=== PATIENT | female | born 1985 | race Caucasian/White ===

== ENCOUNTER 2016-10-28 13:20 | Emergency (ER) | payer MEDICAID, OTHER ==
[~2016-10-28] VITALS: Ht 170.2 cm; Wt 102.5 kg
[~2016-10-28 13:20] MED LIST: ALBU6.7H INH; ALLE10TA PO; FLUO40CA PO; NEBUMIS9; SPIRCAP INH; VALA1TAB PO
[2016-10-28 13:44] VITALS: BP 133/77; PULSE 74; RESP 20; TEMP 98.4
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
--- NOTE | 2016-10-28 15:17 | PD ---
HPI Chief Complaint: Injury Time Seen by Provider: 15:12 Travel History International Travel<30 days: No Contact w/Intl Traveler<30days: No Traveled to known affect area: No History of Present Illness HPI 30-year-old female presents the emergency department with injury to the right hand. Patient hit a wall and now has pain and swelling over the third MIP joint. Patient has decreased range of motion and pain into the hand and wrist. Pain is 7 out of 10. She denies numbness or tingling. She has no open wounds. She has no other injury. She is allergic to codeine. PFSH Past Medical History Asthma: Yes Autoimmune Disease: No Blood Disorders: No Cancer: No COPD: Yes Cerebrovascular Accident: No Diabetes: Yes (BORDERLINE HYPOGLYCEMIC) Patient Takes Glucophage: No Diminished Hearing: No Genitourinary: Yes (UTI) Musculoskeletal: Yes (RECENT FX 5HT METACARPAL) Psychiatric: No Respiratory: No Immunizations Current: No Sleep Apnea: No Tetanus Vaccination: < 5 Years Influenza Vaccination: Yes PNEUMOCCOCAL Vaccine (Year): 2 ?: Not LMP: LAST DAY : 4 Para: 2 Miscarriage: 1 : 0 Ovarian Cysts: Yes Tubal Ligation: Yes Past Surgical History AICD: No Section: Yes Genitourinary Surgery: No Oral Surgery: Yes Pacemaker: No Other Surgery: No Social History Alcohol Use: Yes (2 DRINKS TWICE A WEEK) Tobacco Use: Yes (smokes 4-5 cigarretes per day) Substance Use: No Allergies-Medications (Allergen,Severity, Reaction): Coded Allergies: codeine (Unverified Allergy, Intermediate, RASH, HIVES, NAUSEA, 10/28/16) Reported Meds & Prescriptions Reported Meds & Active Scripts Active Fluoxetine (Fluoxetine HCl) 40 Mg Cap 40 Cap PO DAILY Valacyclovir (Valacyclovir HCl) 1 Gm Tab 2,000 Mg PO BID Nebulizer Air Tube/Plugs (Respiratory Therapy Supplies) 1 Mis Mis Units .XX Proventil Hfa 6.7 GM Inh (Albuterol Sulfate) 90 Mcg/Act Aer 2 Puff INH Q6H PRN Reported Allergy Relief (Loratadine) 10 Mg Tab 10 Mg PO BID Spiriva Handihaler (Tiotropium Inh) 18 Mcg Cap 18 Mcg INH DAILY 1 capsule = 18 mcg Review of Systems Except as stated in HPI: all other systems reviewed are Neg General / Constitutional: No: Fever Eyes: No: Visual changes HENT: No: Headaches Cardiovascular: No: Chest Pain or Discomfort Respiratory: No: Shortness of Breath Gastrointestinal: No: Abdominal Pain Genitourinary: No: Dysuria Musculoskeletal: Positive: Myalgias, Arthralgias, Limited ROM, Pain (see history of present illness) Skin: No Rash Neurologic: No: Weakness Psychiatric: No: Depression Endocrine: No: Polydipsia Hematologic/Lymphatic: No: Easy Bruising Physical Exam Narrative GENERAL: Patient appears in mild distress. SKIN: Warm and dry. Normal color. Normal turgor. Patient has bruising and swelling over the right third MIP joint. HEAD: Atraumatic. Normocephalic. EYES: Pupils equal and round. No scleral icterus. No injection or drainage. ENT: No nasal bleeding or discharge. Mucous membranes pink and moist. Pharynx is clear. Airway is patent NECK: Trachea midline. No JVD. CARDIOVASCULAR: Regular rate and rhythm. RESPIRATORY: No accessory muscle use. Clear to auscultation. Breath sounds equal bilaterally. MUSCULOSKELETAL: Extremities without clubbing, cyanosis, or edema. No obvious deformities. Patient is tenderness over the dorsal distal right hand centered over the third MIP joint. Range of motion is limited secondary to discomfort. There is no obvious crepitus. Neurovascular exam is intact distally. Capillary refill is brisk. No other significant findings are noted. NEUROLOGICAL: Awake and alert. No obvious cranial nerve deficits. Motor grossly within normal limits. Five out of 5 muscle strength in the arms and legs. Normal speech. PSYCHIATRIC: Appropriate mood and affect; insight and judgment normal. Data Data Last Documented VS Vital Signs Date Time Temp Pulse Resp B/P (MAP) Pulse Ox O2 Delivery O2 Flow Rate FiO2 10/28/16 13:44 98.4 74 20 133/77 (95) Orders Orders Hand, Complete (Pdo2hjp) (10/28/16 ) Wrist, Complete (Nci1kgh) (10/28/16 ) [facility] Medical Decision Making Medical Screen Exam Complete: Yes Emergency Medical Condition: Yes Differential Diagnosis Right hand contusion. Right hand sprain. Right hand fracture. Narrative Course X-ray of the right hand is ordered in triage and shows no acute fracture, only soft tissue swelling. Patient is placed in a Chacho bandage for comfort and is to use ice frequently. Patient is given ibuprofen 600 mg 4 times a day #40 Patient to follow up with primary care physician as needed. Diagnosis Primary Impression: Contusion of right hand, initial encounter Referrals: [facility] Primary Care Physician Patient Instructions: Contusion in Adults (ED), General Instructions Additional Instructions: X-ray of the right hand is ordered in triage and shows no acute fracture, only soft tissue swelling. Patient is placed in a Chacho bandage for comfort and is to use ice frequently. Patient is given ibuprofen 600 mg 4 times a day #40 Patient to follow up with primary care physician as needed. Med/Other Pt SpecificInfo: Prescription(s) given Disposition: 01 DISCHARGE HOME Condition: Stable Eliel Bender Oct 28, 2016 15:16
[2016-10-28] MEDS ORDERED: IBUP-232 PO (15:18)
[2016-11-03] MEDS ORDERED: FLUO40CA PO (11:51)
[2016-12-02] MEDS ORDERED: VALA1TAB PO (06:59)
== END 2016-10-28 15:53 | disposition home or self-care (01) ==
LOC: PHED 13:20
DX: S60.221A Contusion of right hand, initial encounter (principal); W22.01XA Walked into wall, initial encounter; E11.9 Type 2 diabetes mellitus without complications; J44.9 Chronic obstructive pulmonary disease, unspecified
CPT/HCPCS: 73110; 73130; 99283

== ENCOUNTER → 2017-01-01 | Outpatient (CLI) | payer MEDICAID ==
[~2017-01-01] MED LIST changes: -ALLE10TA PO; +IBUP-232 PO; +LORA-650 PO
[2017-01-01 11:08] LABS: BLOOD GAS BASE EXCESS -0.5 mmol/L (-2-2); BLOOD GAS CARBOXYHEMOGLOBIN 1.3 % (0-4); BLOOD GAS HCO3 23 mmol/L (22-26); BLOOD GAS METHEMOGLOBIN 1.2 % (0-2); BLOOD GAS O2 HGB SATURATION 95 % (90-100); BLOOD GAS OXYGEN CONTENT 16.9 Vol % (12.0-20.0); BLOOD GAS PCO2 36 mmHg (38-42); BLOOD GAS PO2 101 mmHg (61-120); BLOOD GAS TOTAL HGB 12.6 G/DL (12.0-16.0); CRITICAL VALUE NO; DRAW SITE RT RADIAL; FIO2 21 %; NUMBER OF ARTERIAL PUNCTURES 1; STAT NO; TEMP CORR TO 98.6; ULNAR PULSE PRESENT
--- NOTE | 2017-01-01 12:08 | RADRPT ---
EXAM DATE/TIME: 01/01/2017 11:17 [facility] COMPARISON: No previous studies available for comparison. INDICATIONS : Short of breath MEDICAL HISTORY : None. SURGICAL HISTORY : None. ENCOUNTER: Initial ACUITY: 1 day PAIN SCORE: 0/10 LOCATION: chest FINDINGS: PA and lateral views of the chest demonstrate the lungs to be symmetrically aerated without evidence of mass, infiltrate or effusion. The cardiomediastinal contours are unremarkable. Osseous structure s are intact. CONCLUSION: Normal examination. Jerson Lambert Jr., MD on January 01, 2017 at 12:07 Board Certified Radiologist. This report was verified electronically.
--- NOTE | 2017-01-06 12:12 | RSPPFT ---
DATE OF PROCEDURE: 01/01/17 COMMENTS: Spirometry with FVC of 3.4, FEV1 of 2.1, FEV1/FVC ratio at 65%. A non-significant response to acutely inhaled bronchodilator noted. Room air arterial blood gases show pH of 7.43, PCO2 36, PO2 of 101. Slow vital capacity is 86% of predicted. TLC is 80%. Diffusion capacity is normal. IMPRESSION: 1. Moderate airways obstruction. 2. Non-significant response to acutely inhaled bronchodilator. 3. No evidence of airways restriction. 4. Adequate oxygenation and alveolar ventilation.
== END ==
LOC: HRSP 10:05
PROVIDERS: ATTEND Internal Medicine Sleep Medicine
DX: R06.89 Other abnormalities of breathing (principal)
CPT/HCPCS: 36600; 71020; 82805; 94060; 94726; 94729

== ENCOUNTER 2017-03-01 17:34 | Observation (INO) | payer MEDICAID ==
[~2017-03-01] VITALS: Ht 170.2 cm; Wt 104.0 kg
[2017-03-01 17:37] VITALS: BP 133/91; PULSE 71; RESP 18; TEMP 98.7; O2SAT 100
[2017-03-01 18:33] LABS: BICARBONATE 25.8 MEQ/L (21.0-32.0); BLOOD UREA NITROGEN 7 MG/DL (7-18); CALCIUM 8.9 MG/DL (8.5-10.1); CHLORIDE 106 MEQ/L (98-107); GLOMERULAR FILTRATION RATE 72 ML/MIN (>89); GLUCOSE,RANDOM 98 MG/DL (74-106); SODIUM (NA) 138 MEQ/L (136-145)
[2017-03-01 18:37] LABS: TROPONIN I LESS THAN 0.02 NG/ML (0.02-0.05)
--- NOTE | 2017-03-01 19:23 | RADRPT ---
EXAM DATE/TIME: 03/01/2017 19:09 [facility] COMPARISON: CHEST PA & LAT, January 01, 2017, 11:17. INDICATIONS : Shortness of breath and chest pain radiating down left shoulder and arm for two days. MEDICAL HISTORY : Chronic obstructive pulmonary disease. Former smoker. SURGICAL HISTORY : None. ENCOUNTER: Initial ACUITY: 2 days PAIN SCORE: 8/10 LOCATION: Left chest FINDINGS: PA and lateral views of the chest demonstrate the lungs to be symmetrically aerated without evidence of mass, infiltrate or effusion. The cardiomediastinal contours are unremarkable. Osseous structure s are intact. CONCLUSION: Normal radiographic appearance of the chest. Frederic Lynne MD on March 01, 2017 at 19:20 Board Certified Radiologist. This report was verified electronically.
--- NOTE | 2017-03-01 19:43 | PD ---
HPI Chief Complaint: Respiratory Symptoms Time Seen by Provider: 19:24 Travel History International Travel<30 days: No Contact w/Intl Traveler<30days: No Traveled to known affect area: No History of Present Illness HPI TREATED FOR PNA AT BEGINING OF YEAR TREATED AND COMPLETED [facility]....HOWEVER, PATIENT HAS CONTINUED TO HAVE DRY COUGH, AND SOB, AND STARTED HAVING CHEST PRESSURE AND RADIATING TO LEFT UE, 6/10, INTERMITTENT, PMHX: ASTHMA, PCOS SMOKER, ABOUT 1/3PPD, QUIT 4 DAYS AGO B/C OF WORSENING SOB PSHX DENIES PFSH Past Medical History Asthma: Yes Autoimmune Disease: No Blood Disorders: No Cancer: No COPD: Yes Cerebrovascular Accident: No Diabetes: Yes (BORDERLINE HYPOGLYCEMIC) Diminished Hearing: No Genitourinary: Yes (UTI) Musculoskeletal: Yes (RECENT FX 5HT METACARPAL) Psychiatric: No Respiratory: Yes Immunizations Current: No Sleep Apnea: No PNEUMOCCOCAL Vaccine (Year): 2 ?: Not LMP: 02/22/17 : 4 Para: 2 Miscarriage: 1 : 0 Ovarian Cysts: Yes Tubal Ligation: Yes Past Surgical History AICD: No Section: Yes Genitourinary Surgery: No Oral Surgery: Yes Pacemaker: No Other Surgery: No Social History Alcohol Use: Yes (2 DRINKS TWICE A WEEK) Tobacco Use: Yes (smokes 4-5 cigarretes per day) Substance Use: No Allergies-Medications (Allergen,Severity, Reaction): Coded Allergies: codeine (Unverified Allergy, Intermediate, RASH, HIVES, NAUSEA, 10/28/16) Reported Meds & Prescriptions Reported Meds & Active Scripts Active Valacyclovir (Valacyclovir HCl) 1 Gm Tab 2,000 Mg PO BID Fluoxetine (Fluoxetine HCl) 40 Mg Cap 40 Cap PO DAILY Ibuprofen 600 Mg Tab 600 Mg PO Q6H PRN Nebulizer Air Tube/Plugs (Respiratory Therapy Supplies) 1 Mis Mis Units .XX Proventil Hfa 6.7 GM Inh (Albuterol Sulfate) 90 Mcg/Act Aer 2 Puff INH Q6H PRN Reported Allergy Relief (Loratadine) 10 Mg Tab 10 Mg PO BID Spiriva Handihaler (Tiotropium Inh) 18 Mcg Cap 18 Mcg INH DAILY 1 capsule = 18 mcg Review of Systems Except as stated in HPI: all other systems reviewed are Neg Cardiovascular: Positive: Chest Pain or Discomfort Respiratory: Positive: Shortness of Breath Physical Exam Narrative GENERAL: SKIN: Warm and dry. HEAD: Atraumatic. Normocephalic. EYES: Pupils equal and round. No scleral icterus. No injection or drainage. ENT: No nasal bleeding or discharge. Mucous membranes pink and moist. NECK: Trachea midline. No JVD. CARDIOVASCULAR: Regular rate and rhythm. RESPIRATORY: No accessory muscle use. MINIMAL SCATTERED WHEEZING, GOOD TV GASTROINTESTINAL: Abdomen soft, non-tender, nondistended. MUSCULOSKELETAL: Extremities without clubbing, cyanosis, or edema. No obvious deformities. NEUROLOGICAL: Awake and alert. No obvious cranial nerve deficits. Motor grossly within normal limits. Five out of 5 muscle strength in the arms and legs. Normal speech. PSYCHIATRIC: Appropriate mood and affect; insight and judgment normal. Data Data Last Documented VS Vital Signs Date Time Temp Pulse Resp B/P (MAP) Pulse Ox O2 Delivery O2 Flow Rate FiO2 03/01/17 17:37 98.7 71 18 133/91 (105) 100 Room Air Orders Orders Electrocardiogram (03/01/17 18:00) Complete Blood Count With Diff (03/01/17 18:00) Basic Metabolic Panel (Bmp) (03/01/17 18:00) Ckmb (Isoenzyme) Profile (03/01/17 18:00) Troponin I (03/01/17 18:00) Chest, Pa & Lat (03/01/17 18:00) Labs Laboratory Tests Test 03/01/17 17:57 Blood Urea Nitrogen 7 MG/DL Creatinine 0.90 MG/DL Random Glucose 98 MG/DL Calcium Level 8.9 MG/DL Sodium Level 138 MEQ/L Potassium Level 3.8 MEQ/L Chloride Level 106 MEQ/L Carbon Dioxide Level 25.8 MEQ/L Anion Gap 6 MEQ/L Estimat Glomerular Filtration Rate 72 ML/MIN Total Creatine Kinase 49 U/L Troponin I LESS THAN 0.02 NG/ML MDM Medical Decision Making Medical Screen Exam Complete: Yes Emergency Medical Condition: Yes Medical Record Reviewed: Yes Differential Diagnosis COPD EXAC V PNA V FL V NONSTEMI Diagnosis Primary Impression: MILD COPD EXACERBATION Additional Impression: CP R/O FL Admitting Information Admitting Physician Requests: Observation Efe Kerr MD Mar 01, 2017 19:43
[2017-03-01 20:20] LABS: AUTOMATED NEUTROPHIL # 5.9 TH/MM3 (1.8-7.7); BASOPHIL % 0.5 % (0.0-2.0); EOSINOPHIL % 0.6 % (0.0-4.0); HEMATOCRIT 39.1 % (35.0-46.0); HEMOGLOBIN 13.6 GM/DL (11.6-15.3); LYMPH % 16.8 % (9.0-44.0); LYMPHOCYTE # 1.3 TH/MM3 (1.0-4.8); MEAN CELL VOLUME 88.9 FL (80.0-100.0); MEAN CORPUSCULAR HEMOGLOBIN 30.8 PG (27.0-34.0); MEAN CORPUSCULAR HGB CONC 34.7 % (32.0-36.0); MEAN PLATELET VOLUME 10.3 FL (7.0-11.0); MONO % 2.5 % (0.0-8.0); MONOCYTE # 0.2 TH/MM3 (0-0.9); NEUT % 79.6 % (16.0-70.0); PLATELET COUNT 181 TH/MM3 (150-450); RED BLOOD COUNT 4.39 MIL/MM3 (4.00-5.30); RED CELL DISTRIBUTION WIDTH 13.5 % (11.6-17.2); WHITE BLOOD COUNT 7.5 TH/MM3 (4.0-11.0)
[2017-03-01] MEDS: SODIUM CHLORIDE 0.9% FLUSH 10 ML FLUSH IV FLUSH SCH (20:52)
[2017-03-01] MEDS ORDERED: PRED20 PO (22:06)
[2017-03-01 22:46] LABS: TROPONIN I LESS THAN 0.02 NG/ML (0.02-0.05)
[2017-03-01 23:30] VITALS: BP 133/80; PULSE 62; RESP 18; TEMP 98.3; O2SAT 97
[2017-03-02 00:22] LABS: TROPONIN I LESS THAN 0.02 NG/ML (0.02-0.05)
[2017-03-02 03:24] VITALS: BP 123/72; PULSE 58; RESP 18; TEMP 98.3; O2SAT 98
[2017-03-02 04:18] VITALS: PULSE 66
--- NOTE | 2017-03-02 07:38 | HHI.HP ---
HPI Primary Care Physician Mirna Smith MD Chief Complaint Chest pain History of Present Illness 31 year old female with history of asthma and current smoker presents to emergency room for further evaluation of chest pain. Endorses 1 month of respiratory illness completing 3 rounds of antibiotics and steroids. Recently completed Levaquin for reported pneumonia. Continues to have dry cough. Onset of chest pain yesterday. Characterized as pressure. Location substernal. Severity moderate. Radiation to left arm.. Duration intermittent generally lasting minutes. No associated symptoms of nausea, vomiting, dyspnea, or diaphoresis. Precipitating factors coughing makes discomfort worse. Relieving factors laying still and relaxing. Denies similar pain in the past. Review of Systems General: No fatigue,weakness. Recent URI infection, treated with 3 rounds of antibiotics and multiple steroids within last month. Completed Levaquin last week. Continues to have nonproductive cough with fever. HEENT: No [place], no vision changes, no nasal congestion or drainage, no dysphasia CV: No CP, pressure, palpitations, intermittent leg pain, dizziness RESP: As stated above. Nonproductive cough, no dyspnea, history of asthma. Recently treated for pneumonia, completing Levaquin last week. GI: Nausea and vomiting resolved. No bowel changes, diarrhea, constipation, pain , distention, melena, blood in the stool. : No dysuria, urgency, frequency, hematuria, or history of kidney stones EXT: No lower leg edema, no parathesias MS: No discomfort or change in ROM NEURO: No change in memory, dizziness, difficulty with balance, LOC, motor/ sensory deficits PSYCH: No anxiety, depression, suicidal ideation SKIN: No rashes, no concerning lesions Past Family Social History Allergies: Coded Allergies: codeine (Unverified Allergy, Intermediate, RASH, HIVES, NAUSEA, 10/28/16) Past Medical History Asthma Past Surgical History None Reported Medications Reported Meds & Active Scripts Active Fluoxetine (Fluoxetine HCl) 40 Mg Cap 40 Cap PO DAILY Nebulizer Air Tube/Plugs (Respiratory Therapy Supplies) 1 Mis Mis Units .XX Proventil Hfa 6.7 GM Inh (Albuterol Sulfate) 90 Mcg/Act Aer 2 Puff INH Q6H PRN Prednisone 20 Mg Tab 20 Mg PO DIRECTED 40 MG twice a day x 3 days, then 20 MG daily x 3 days, then 10 MG daily x 3 days Allergy Relief (Loratadine) 10 Mg Tab 10 Mg PO BID Spiriva Handihaler (Tiotropium Inh) 18 Mcg Cap 18 Mcg INH DAILY 1 capsule = 18 mcg Active Ordered Medications Current Medications Medications (Trade) Dose Ordered Sig/Nory Route Start Time Stop Time Status Last Admin (NS Flush) 2 ml BID IV FLUSH 03/01/17 21:00 03/01/17 20:52 (Aspirin) 325 mg DAILY PO 03/02/17 09:00 (NS Flush) 2 ml BID IV FLUSH 03/02/17 09:00 (Tylenol) 500 mg Q4H PRN PO 03/02/17 08:00 (Zofran Inj) 4 mg Q6H PRN IV PUSH 03/02/17 08:00 (Nitrostat Sl) 0.4 mg Q5M PRN SL 03/02/17 08:00 Family History Noncontributory for early onset cardiovascular disease. Social History No known hypertension, diabetes, or hyperlipidemia. Current smoker, quit 4 days. Smoke 1pack/every 3 days. Past cardiac testing None Physical Exam Vital Signs Vital Signs Date Time Temp Pulse Resp B/P (MAP) Pulse Ox O2 Delivery O2 Flow Rate FiO2 03/02/17 04:18 66 03/02/17 03:24 98.3 58 18 123/72 (89) 98 03/01/17 23:30 98.3 62 18 133/80 (97) 97 03/01/17 22:05 03/01/17 17:37 98.7 71 18 133/91 (105) 100 Room Air Physical Exam GENERAL: Alert WN, WD, NAD, pleasant, moderately obese, female HEAD: NC, AT CV: RRR, without murmur, rub, gallop, no JVD, S1-S2 no S3-S4. Chest wall nontender with palpation. RESP: Expiratory wheezing, cleared with coughing, otherwise coarse throughout. Symmetrical chest rise, nonlabored, able to speak in full sentences ABD: Soft, NT, ND, no masses, positive bowel tones EXT: Pulses +24, no dependent edema MS: Normal tone 4 extremities, no obvious deformities, full range of motion NEURO: CN II through CN XII grossly intact, motor strength 5/5 PSYCH: A+O 3, pleasant affect, appropriate speech, mood, insight and judgment SKIN: Normal turgor, normal texture, no lesions, no rashes Laboratory Laboratory Tests Test 03/01/17 17:57 03/01/17 19:50 03/01/17 21:15 03/01/17 23:45 Blood Urea Nitrogen 7 Creatinine 0.90 Random Glucose 98 Calcium Level 8.9 Sodium Level 138 Potassium Level 3.8 Chloride Level 106 Carbon Dioxide Level 25.8 Anion Gap 6 Estimat Glomerular Filtration Rate 72 Total Creatine Kinase 49 44 44 Troponin I LESS THAN 0.02 LESS THAN 0.02 LESS THAN 0.02 White Blood Count 7.5 Red Blood Count 4.39 Hemoglobin 13.6 Hematocrit 39.1 Mean Corpuscular Volume 88.9 Mean Corpuscular Hemoglobin 30.8 Mean Corpuscular Hemoglobin Concent 34.7 Red Cell Distribution Width 13.5 Platelet Count 181 Mean Platelet Volume 10.3 Neutrophils (%) (Auto) 79.6 Lymphocytes (%) (Auto) 16.8 Monocytes (%) (Auto) 2.5 Eosinophils (%) (Auto) 0.6 Basophils (%) (Auto) 0.5 Neutrophils # (Auto) 5.9 Lymphocytes # (Auto) 1.3 Monocytes # (Auto) 0.2 Eosinophils # (Auto) 0.0 Basophils # (Auto) 0.0 CBC Comment DIFF FINAL Differential Comment Result Diagram: 03/01/17 1950 03/01/17 1757 Imaging Last 48 hours Impressions Chest X-Ray 03/01/17 1800 Signed Impressions: Service Date/Time: Wednesday, March 01, 2017 19:09 - CONCLUSION: Normal radiographic appearance of the chest. Frederic Lynne MD Course EKG Nsr, normal axis, no st t segment changes Caprini VTE Risk Assessment Caprini VTE Risk Assessment: No/Low Risk (score <= 1) Caprini Risk Assessment Model Point Value = 1 Point Value = 2 Point Value = 3 Point Value = 5 Age 41-60 Minor surgery BMI > 25 kg/m2 Swollen legs Varicose veins or History of unexplained or recurrent spontaneous Oral contraceptives or hormone replacement Sepsis (< 1 month) Serious lung disease, including pneumonia (< 1 month) Abnormal pulmonary function Acute myocardial infarction Congestive heart failure (< 1 month) History of inflammatory bowel disease Medical patient at bed rest Age 61-74 Arthroscopic surgery Major open surgery (> 45 min) Laparoscopic surgery (> 45 min) Malignancy Confined to bed (> 72 hours) Immobilizing plaster cast Central venous access Age >= 75 History of VTE Family history of VTE Factor V Leiden Prothrombin [id number] Lupus anticoagulant Anticardiolipin antibodies Elevated serum homocysteine Heparin-induced thrombocytopenia Other congenital or acquired thrombophilia Stroke (< 1 month) Elective arthroplasty Hip, pelvis, or leg fracture Acute spinal cord injury (< 1 month) Prophylaxis Regimen Total Risk Factor Score Risk Level Prophylaxis Regimen 0-1 Low Early ambulation 2 Moderate Order ONE of the following: *Sequential Compression Device (SCD) *Heparin 5000 units SQ BID 3-4 Higher Order ONE of the following medications: *Heparin 5000 units SQ TID *Enoxaparin/Lovenox 40 mg SQ daily (WT < 150 kg, CrCl > 30 mL/min) *Enoxaparin/Lovenox 30 mg SQ daily (WT < 150 kg, CrCl > 10-29 mL/min) *Enoxaparin/Lovenox 30 mg SQ BID (WT < 150 kg, CrCl > 30 mL/min) AND/OR *Sequential Compression Device (SCD) 5 or more Highest Order ONE of the following medications: *Heparin 5000 units SQ TID (Preferred with Epidurals) *Enoxaparin/Lovenox 40 mg SQ daily (WT < 150 kg, CrCl > 30 mL/min) *Enoxaparin/Lovenox 30 mg SQ daily (WT < 150 kg, CrCl > 10-29 mL/min) *Enoxaparin/Lovenox 30 mg SQ BID (WT < 150 kg, CrCl > 30 mL/min) AND *Sequential Compression Device (SCD) Assessment and Plan Assessment and Plan #1 Atypical chest pain-admitted to chest pain. Ruled out with 3 sets of EKGs, cardiac enzymes, and monitored overnight. Seen and evaluated by Dr. Efrem Smith. Discomfort does not suggest cardiac concern. Proceed with exercise stress testing. If unremarkable, plans would be to discharge home with follow up with primary provider. Patient agreeable to plan of care. RT treatment provided prior to ETT for optimal exercise tolerance. Patient agreeable to plan of care. #2 Asthma-continue inhalers, encouraged not to return to tobacco use, reassured chest xray does not indicate she still has pneumonia #3 Tobacco use-strongly encouraged and stressed the importance of tobacco cessation and not to restart smoking. Verbalized understanding. 1125-Attempted exercise stress testing. Patient unable to complete safely. Dr. Smith made aware. Proceed with Lexiscan. Alexia Blank Mar 02, 2017 07:38
[2017-03-02 07:41] VITALS: BP 136/69; PULSE 63; RESP 21; TEMP 98; O2SAT 96
[2017-03-02 08:00] VITALS: PULSE 67
[2017-03-02] MEDS ORDERED: ONDANSETRON HCL 4 MG/2 ML VIAL IV PUSH PRN (08:00)
[2017-03-02] MEDS ORDERED: NITROGLYCERIN 0.4 MG SL 25 TABS/BTL SL PRN (08:00)
[2017-03-02] MEDS ORDERED: RESP: ALBUTEROL 2.5 MG/3 ML NEB (PRN) NEB (08:00)
[2017-03-02] MEDS: ACETAMINOPHEN 500 MG CPLT PO PRN ×2 (08:51→14:46)
[2017-03-02] MEDS: SODIUM CHLORIDE 0.9% FLUSH 10 ML FLUSH IV FLUSH SCH (08:52)
[2017-03-02] MEDS ORDERED: SODIUM CHLORIDE 0.9% FLUSH 10 ML FLUSH IV FLUSH SCH (09:00)
[2017-03-02] MEDS ORDERED: ASPIRIN 325 MG TAB PO SCH (09:00)
[2017-03-02 12:07] VITALS: BP 107/61; PULSE 63; RESP 18; TEMP 98.2; O2SAT 98
[2017-03-02] MEDS ORDERED: IBUPROFEN 400 MG TAB PO PRN (12:15)
[2017-03-02 12:22] VITALS: BP 118/62
[2017-03-02] MEDS ORDERED: REGADENOSON INJ 0.4 MG/5 ML SYR ONE (13:47)
--- NOTE | 2017-03-02 15:01 | RADRPT ---
EXAM DATE/TIME: 03/02/2017 13:16 [facility] COMPARISON: No previous studies available for comparison. INDICATIONS : Chest pain radiating to the left arm with cough and dyspnea. Angina. DOSE: 35 mCi Tc99m Myoview at stress. 11 mCi Tc99m Myoview at rest. 0.4 mg Lexiscan STRESS SYMPTOMS: Dyspnea, chest pain and left arm pain. EJECTION FRACTION: 64% MEDICAL HISTORY : Chronic obstructive pulmonary disease. Diabetes mellitus type 2. Smoker. SURGICAL HISTORY : Tubal ligation. ENCOUNTER: Initial ACUITY: 1 day PAIN SCALE: 6/10 LOCATION: chest TECHNIQUE: The patient underwent pharmacologic stress with infusion of prescribed dose. Continuous ECG tracing was monitored during stress. Gated SPECT imaging was performed after stress and conventional SPECT i maging was performed at rest. The examination was performed on a SPECT/CT scanner, both attenuation and non-corrected datasets were reviewed. FINDINGS: DISTRIBUTION: The maximum perfused segment at stress is in the anterolateral wall. PERFUSION STUDY: The pattern of perfusion at stress is within normal limits. GATED STUDY: There is intact wall motion and thickening without hypokinetic or dyskinetic segments. CONCLUSION: 1. No reversible perfusion defect to indicate stress-induced myocardial ischemia. RISK CATEGORY: Low (<1% Annual Mortality Rate) Rene Arthur MD on March 02, 2017 at 14:56 Board Certified Radiologist. This report was verified electronically.
--- NOTE | 2017-03-02 15:04 | HHI.DCPOC ---
Discharge Care Plan Diagnosis: (1) Atypical chest pain (2) Tobacco abuse Goals to Promote Your Health * To prevent worsening of your condition and complications * To maintain your health at the optimal level Directions to Meet Your Goals Take your medications as prescribed Follow your dietary instruction Follow activity as directed Keep your appointments as scheduled Take your immunizations and boosters as scheduled If your symptoms worsen call your PCP, if no PCP go to Urgent Care Center or Emergency Room Smoking is Dangerous to Your Health. Avoid second hand smoke Call the 24-hour hour crisis hotline for domestic abuse at Alexia Blank Mar 02, 2017 15:04
--- NOTE | 2017-03-02 15:08 | EKG ---
Date Performed: 03/02/2017 Time Performed: 01:22:45 PTAGE: 31 years EKG: Sinus rhythm NORMAL ECG PREVIOUS TRACING : 03/02/2017 01.22 Since previous tracing, no significant change noted DOCTOR: Efrem Smith Interpretating Date/Time 03/02/2017 15:08:01
--- NOTE | 2017-03-02 15:14 | EKG ---
Date Performed: 03/01/2017 Time Performed: 19:49:19 PTAGE: 31 years EKG: Sinus rhythm NORMAL ECG NO PREVIOUS TRACING DOCTOR: Efrem Smith Interpretating Date/Time 03/02/2017 15:12:46
--- NOTE | 2017-03-02 15:19 | EKG ---
Date Performed: 03/01/2017 Time Performed: 17:53:30 PTAGE: 31 years EKG: Sinus rhythm NORMAL ECG PREVIOUS TRACING : 01/13/2006 18.41 Since previous tracing, no significant change noted DOCTOR: Efrem Smith Interpretating Date/Time 03/02/2017 15:18:44
--- NOTE | 2017-03-02 15:31 | TR ---
Date Performed: 03/02/2017 Time Performed: 11:14:42 DOCTOR: Efrem Smith DRUG LIST: CLINICAL HISTORY: REASON FOR TEST: Chest pain REASON FOR ENDING: OBSERVATION: CONCLUSION: Toby protocol attempted. Exam stopped sec to patient request due to shortness of br eath and leg fatigue. Suboptimal exam. Poor exercise tolerance. No ectopy or ekg changes. COMMENTS: Non diagnostic test due to failure to reach target heart rate
--- NOTE | 2017-03-02 15:42 | TR ---
Date Performed: 03/02/2017 Time Performed: 13:45:11 DOCTOR: Efrem Smith DRUG LIST: CLINICAL HISTORY: CHEST PAIN REASON FOR TEST: CHEST PAIN REASON FOR ENDING: OBSERVATION: CONCLUSION: Lexiscan stress test was performed under standard four minute protocol. Radionuclid e was injected one minute prior to ending the test. No electrocardiographic abormalities were present to suggest ischemia. Nuclear imaging and interpretation are pending. COMMENTS:
[2017-03-06] MEDS ORDERED: NEBULIZER1 MI1 INH (14:35)
[2017-03-06] MEDS ORDERED: ALBU0.08 NEB (14:35)
[2017-03-06] MEDS ORDERED: IBUP-232 PO (14:35)
[2017-03-06] MEDS ORDERED: CYCL7.5T33 PO (14:35)
[2017-03-06] MEDS ORDERED: PRED20 PO (14:35)
[2017-03-06] MEDS ORDERED: PROM25TA10 PO (16:49)
== END 2017-03-02 18:04 | disposition home or self-care (01) ==
LOC: NEPD 17:34 → NEDA 20:33 → NEPHCDU 22:10
PROVIDERS: ADMIT Internal Medicine Interventional Cardiology; ATTEND Internal Medicine Interventional Cardiology
DX: R07.89 Other chest pain (principal); J44.1 Chronic obstructive pulmonary disease with (acute) exacerbation; M79.602 Pain in left arm; E11.9 Type 2 diabetes mellitus without complications; J45.909 Unspecified asthma, uncomplicated; Z87.891 Personal history of nicotine dependence
CPT/HCPCS: 71046; 78452; 80048; 82550; 84484; 84702; 85025; 93005; 93017; 94664; 99285; A9502; G0378; J2785; J7613

== ENCOUNTER 2017-04-27 23:42 | Inpatient (IN) | payer MEDICAID, OTHER ==
[~2017-04-27] VITALS: Ht 170.2 cm; Wt 102.1 kg
[~2017-04-27 23:42] MED LIST changes: +ALBU0.08 NEB; +CYCL10TA PO; +NEBULIZER1 MI1 INH; +PRED20 PO; +PROM25TA10 PO; -VALA1TAB PO
[2017-04-28] VITALS (7 sets, daily range): BP systolic 100–138; BP diastolic 51–84; PULSE 61–93; RESP 16–22; TEMP 98–100.4; O2SAT 93–99
[2017-04-28 00:46] LABS: AUTOMATED NEUTROPHIL # 5.6 TH/MM3 (1.8-7.7); BASOPHIL % 0.3 % (0.0-2.0); EOSINOPHIL # 0.2 TH/MM3 (0-0.4); EOSINOPHIL % 2.4 % (0.0-4.0); HEMATOCRIT 34.4 % (35.0-46.0); HEMOGLOBIN 11.7 GM/DL (11.6-15.3); LYMPH % 15.7 % (9.0-44.0); LYMPHOCYTE # 1.2 TH/MM3 (1.0-4.8); MEAN CELL VOLUME 88.7 FL (80.0-100.0); MEAN CORPUSCULAR HEMOGLOBIN 30.1 PG (27.0-34.0); MEAN PLATELET VOLUME 9.8 FL (7.0-11.0); MONO % 6.1 % (0.0-8.0); MONOCYTE # 0.5 TH/MM3 (0-0.9); NEUT % 75.5 % (16.0-70.0); PLATELET COUNT 175 TH/MM3 (150-450); RED BLOOD COUNT 3.88 MIL/MM3 (4.00-5.30); RED CELL DISTRIBUTION WIDTH 14.5 % (11.6-17.2); WHITE BLOOD COUNT 7.4 TH/MM3 (4.0-11.0)
[2017-04-28 00:57] LABS: BACTERIA, URINE RARE /hpf; BILIRUBIN, URINE NEG (NEG); BLOOD, URINE NEG (NEG); GLUCOSE,URINE NEG (NEG); KETONE, URINE NEG (NEG); MUCUS URINE FEW /lpf (OCC); NITRITE,URINE NEG (NEG); PH, URINE 7.5 (5.0-8.5); SQUAMOUS EPITHELIAL CELL URINE 11 /hpf (0-5); URINE COLOR YELLOW (YELLW/STRAW); URINE LEUKOCYTE ESTERASE LARGE (NEG)
[2017-04-28 01:09] LABS: ALBUMIN 3.1 GM/DL (3.4-5.0); ALT (GPT) 44 U/L (10-53); AST (GOT) 14 U/L (15-37); BICARBONATE 29.2 MEQ/L (21.0-32.0); BLOOD UREA NITROGEN 6 MG/DL (7-18); CALCIUM 8.4 MG/DL (8.5-10.1); CHLORIDE 106 MEQ/L (98-107); CREATININE 0.74 MG/DL (0.50-1.00); GLOMERULAR FILTRATION RATE 90 ML/MIN (>89); GLUCOSE,RANDOM 95 MG/DL (74-106); SODIUM (NA) 142 MEQ/L (136-145)
[2017-04-28 01:11] LABS: ALKALINE PHOSPHATASE 106 U/L (45-117); TOTAL BILIRUBIN ADULT 0.4 MG/DL (0.2-1.0); TOTAL PROTEIN 6.9 GM/DL (6.4-8.2)
--- NOTE | 2017-04-28 04:20 | PD ---
HPI Chief Complaint: Abdominal Pain Time Seen by Provider: 04:18 Travel History International Travel<30 days: No Contact w/Intl Traveler<30days: No Traveled to known affect area: No History of Present Illness HPI Patient states that she was in [place] where she was seen twice on April 18 in April. The patient has her discharge instructions as well as her laboratory results, but without any imaging results. Patient states that she had a CT scan of her abdomen where she was told that nothing was wrong. However patient continues to feel his abdominal pain has been persistent and ongoing since April 18. Sometimes crampy and sharp 7 out of 10, sometimes radiates towards her right shoulder blade. Patient states that she was diagnosed with gastritis in [place] and referred to follow-up with her primary and GI doc. She has appointment with the GI doctor for May 13. States allergy to codeine Patient's past medical history significant for COPD, ovarian cyst, tubal ligation, diabetes, depression and frequent UTIs. PFSH Past Medical History Asthma: Yes Autoimmune Disease: No Blood Disorders: No Depression: Yes Cancer: No COPD: Yes Cerebrovascular Accident: No Diabetes: Yes Diminished Hearing: No Genitourinary: Yes (UTI) Musculoskeletal: Yes (RECENT FX 5HT METACARPAL) Psychiatric: No Respiratory: Yes (COPD) Immunizations Current: No Sleep Apnea: No Tetanus Vaccination: < 5 Years Influenza Vaccination: No PNEUMOCCOCAL Vaccine (Year): 2 ?: Not LMP: 04/15/17 : 4 Para: 2 Miscarriage: 1 : 0 Ovarian Cysts: Yes Tubal Ligation: Yes Past Surgical History AICD: No Section: Yes Genitourinary Surgery: No Oral Surgery: Yes Pacemaker: No Other Surgery: No Social History Alcohol Use: Yes (2 DRINKS TWICE A WEEK) Tobacco Use: Yes (smokes 3-4 cigarretes per day) Substance Use: No Allergies-Medications (Allergen,Severity, Reaction): Coded Allergies: codeine (Unverified Allergy, Intermediate, RASH, HIVES, NAUSEA, 03/06/17) Reported Meds & Prescriptions Reported Meds & Active Scripts Active Flexeril (Cyclobenzaprine HCl) 10 Mg Tab 10 Mg PO HS Phenergan (Promethazine HCl) 25 Mg Tablet 25 Mg PO Q6H PRN Albuterol Neb (Albuterol Sulfate) 2.5 Mg/3 Ml Neb 2.5 Mg NEB Q4HR NEB While awake Nebulizer 1 Mis Mis Ea INH DIRECTED Prednisone 20 Mg Tab 20 Mg PO DAILY Ibuprofen 600 Mg Tab 600 Mg PO Q8H PRN Fluoxetine (Fluoxetine HCl) 40 Mg Cap 40 Cap PO DAILY Nebulizer Air Tube/Plugs (Respiratory Therapy Supplies) 1 Mis Mis Units .XX Proventil Hfa 6.7 GM Inh (Albuterol Sulfate) 90 Mcg/Act Aer 2 Puff INH Q6H PRN Reported Allergy Relief (Loratadine) 10 Mg Tab 10 Mg PO BID Spiriva Handihaler (Tiotropium Inh) 18 Mcg Cap 18 Mcg INH DAILY 1 capsule = 18 mcg Review of Systems General / Constitutional: No: Fever Eyes: No: Visual changes HENT: No: Headaches Cardiovascular: No: Chest Pain or Discomfort Respiratory: No: Shortness of Breath Gastrointestinal: Positive: Nausea, Vomiting, Diarrhea, Abdominal Pain Genitourinary: No: Dysuria Musculoskeletal: No: Pain Skin: No Rash Neurologic: No: Weakness Psychiatric: No: Depression Endocrine: No: Polydipsia Hematologic/Lymphatic: No: Easy Bruising Physical Exam Narrative GENERAL: SKIN: Warm and dry. HEAD: Atraumatic. Normocephalic. EYES: Pupils equal and round. No scleral icterus. No injection or drainage. ENT: No nasal bleeding or discharge. Mucous membranes pink and moist. NECK: Trachea midline. No JVD. CARDIOVASCULAR: Regular rate and rhythm. RESPIRATORY: No accessory muscle use. Clear to auscultation. Breath sounds equal bilaterally. GASTROINTESTINAL: Abdomen soft, right upper quadrant tenderness to percussion, positive Nickerson sign, no rebound/ guarding/rigidity, nondistended. MUSCULOSKELETAL: Extremities without clubbing, cyanosis, or edema. No obvious deformities. NEUROLOGICAL: Awake and alert. No obvious cranial nerve deficits. Motor grossly within normal limits. Five out of 5 muscle strength in the arms and legs. Normal speech. PSYCHIATRIC: Appropriate mood and affect; insight and judgment normal. Data Data Last Documented VS Vital Signs Date Time Temp Pulse Resp B/P (MAP) Pulse Ox O2 Delivery O2 Flow Rate FiO2 04/28/17 05:29 100.4 89 16 136/84 (101) 99 Room Air Orders Orders Complete Blood Count With Diff (04/28/17 00:11) Comprehensive Metabolic Panel (04/28/17 00:11) Urinalysis - C+S If Indicated (04/28/17 00:11) Ed Urine Pregnancytest Poc (04/28/17 00:11) Iv Access Insert/Monitor (04/28/17 00:11) Oxygen Administration (04/28/17 00:11) Oximetry (04/28/17 00:11) Lipase (04/28/17 00:11) Us Abdomen Gallbladder (04/28/17 ) Ecg Monitoring (04/28/17 04:30) NPO (04/28/17 04:30) Morphine Inj (Morphine Inj) (04/28/17 04:30) Ondansetron Inj (Zofran Inj) (04/28/17 04:30) Sodium Chlor 0.9% 1000 Ml Inj (Ns 1000 M (04/28/17 04:30) Chest, Single Ap (04/28/17 04:34) Influenzae A/B Antigen (04/28/17 04:36) Potassium Chloride Eff (K-Lyte Cl Eff) (04/28/17 05:45) Levofloxacin 500 Mg Premix Inj (Levaquin (04/28/17 05:45) Labs Laboratory Tests Test 04/28/17 00:25 04/28/17 00:28 White Blood Count 7.4 TH/MM3 Red Blood Count 3.88 MIL/MM3 Hemoglobin 11.7 GM/DL Hematocrit 34.4 % Mean Corpuscular Volume 88.7 FL Mean Corpuscular Hemoglobin 30.1 PG Mean Corpuscular Hemoglobin Concent 34.0 % Red Cell Distribution Width 14.5 % Platelet Count 175 TH/MM3 Mean Platelet Volume 9.8 FL Neutrophils (%) (Auto) 75.5 % Lymphocytes (%) (Auto) 15.7 % Monocytes (%) (Auto) 6.1 % Eosinophils (%) (Auto) 2.4 % Basophils (%) (Auto) 0.3 % Neutrophils # (Auto) 5.6 TH/MM3 Lymphocytes # (Auto) 1.2 TH/MM3 Monocytes # (Auto) 0.5 TH/MM3 Eosinophils # (Auto) 0.2 TH/MM3 Basophils # (Auto) 0.0 TH/MM3 CBC Comment DIFF FINAL Differential Comment Blood Urea Nitrogen 6 MG/DL Creatinine 0.74 MG/DL Random Glucose 95 MG/DL Total Protein 6.9 GM/DL Albumin 3.1 GM/DL Calcium Level 8.4 MG/DL Alkaline Phosphatase 106 U/L Aspartate Amino Transf (AST/SGOT) 14 U/L Alanine Aminotransferase (ALT/SGPT) 44 U/L Total Bilirubin 0.4 MG/DL Sodium Level 142 MEQ/L Potassium Level 3.1 MEQ/L Chloride Level 106 MEQ/L Carbon Dioxide Level 29.2 MEQ/L Anion Gap 7 MEQ/L Estimat Glomerular Filtration Rate 90 ML/MIN Lipase 73 U/L Urine Color YELLOW Urine Turbidity HAZY Urine pH 7.5 Urine Specific [place] 1.014 Urine Protein TRACE mg/dL Urine Glucose (UA) NEG mg/dL Urine Ketones NEG mg/dL Urine Occult Blood NEG Urine Nitrite NEG Urine Bilirubin NEG Urine Urobilinogen 2.0 MG/DL Urine Leukocyte Esterase LARGE Urine RBC 1 /hpf Urine WBC 2 /hpf Urine Squamous Epithelial Cells 11 /hpf Urine Bacteria RARE /hpf Urine Mucus FEW /lpf Microscopic Urinalysis Comment CULT NOT INDICATED MDM Medical Decision Making Medical Screen Exam Complete: Yes Emergency Medical Condition: Yes Medical Record Reviewed: Yes Differential Diagnosis Cholelithiasis versus cholecystitis versus acalculous cholecystitis versus pancreatitis versus hepatitis Narrative Course CBC shows no evidence of any leukocytosis, no anemia, normal platelet count and no left shift. Chemistry shows normal electrolytes except for mild low potassium of 3.1, normal kidney functions normal liver functions and normal pancreatic functions. UA showed some haziness and large leukocyte esterase with 11 squamous epithelial cells possible contaminant versus early UTI. Patient is treated with Levaquin empirically for any possible cholecystitis while awaiting ultrasound.... Patient was given potassium replacement, IV fluid , morphine and Zofran. Patient is signed out to incoming physician pending ultrasound of right upper quadrant Diagnosis Primary Impression: Right upper quadrant pain Additional Impression: Hypokalemia Efe Kerr MD Apr 28, 2017 04:20
[2017-04-28] MEDS ORDERED: SODIUM CHLOR 0.9% 1000 ML INJ 1,000 ML IV SCH ×2 (04:30→09:30)
[2017-04-28] MEDS ORDERED: MORPHINE SULFATE 4 MG/ML INJ IV PUSH ONE ×2 (04:30→09:30)
[2017-04-28] MEDS ORDERED: ONDANSETRON HCL 4 MG/2 ML VIAL IVP ONE (04:30)
--- NOTE | 2017-04-28 05:14 | RADRPT ---
EXAM DATE/TIME: 04/28/2017 04:46 [facility] COMPARISON: No previous studies available for comparison. INDICATIONS : Cough. Lower chest pain. MEDICAL HISTORY : Chronic obstructive pulmonary disease. SURGICAL HISTORY : None. ENCOUNTER: Initial ACUITY: 1 day PAIN SCORE: 10 LOCATION: Bilateral lower chest FINDINGS: 2 portable frontal views of the chest demonstrate the lungs to be symmetrically aerated without evide nce of mass, infiltrate or effusion. The cardiomediastinal contours are unremarkable. Osseous struc tures are intact. CONCLUSION: No acute disease. Jerson Lambert Jr., MD on April 28, 2017 at 5:12 Board Certified Radiologist. This report was verified electronically.
[2017-04-28] MEDS ORDERED: LEVOFLOXACIN 500 MG PREMIX INJ 100 ML IV ONE (05:45)
[2017-04-28] MEDS ORDERED: POTASSIUM CHLORIDE 25 MEQ EFFERVESCENT TAB PO ONE (05:45)
[2017-04-28] MEDS ORDERED: ONDANSETRON HCL 4 MG/2 ML VIAL IV ONE (07:15)
[2017-04-28] MEDS ORDERED: ACETAMINOPHEN 1000 MG/100 ML 100 ML IV ONE (07:15)
--- NOTE | 2017-04-28 08:30 | RADRPT ---
EXAM DATE/TIME: 04/28/2017 07:40 [facility] COMPARISON: No previous studies available for comparison. INDICATIONS : Right upper qaudrant pain. MEDICAL HISTORY : Chronic obstructive pulmonary disease. Diabetes. SURGICAL HISTORY : Tubal ligation. section. ENCOUNTER: Initial ACUITY: 2 weeks PAIN SCORE: 7/10 LOCATION: Right upper quadrant MEASUREMENTS: LIVER: 20.4 cm length COMMON DUCT: 9 mm RIGHT KIDNEY: 11.5 x 4.2 x 4.8 cm FINDINGS: LIVER: Mild diffuse increased hepatic echogenicity. Liver is enlarged. No significant intrahepatic ductal di latation or focal mass in the visualized portions. COMMON DUCT: Common bile duct is prominent in size although no definitive evidence for a stone or mass. GALLBLADDER: Gallbladder is moderately distended and contains sludge. Gallbladder wall is thickened with mild dave cholecystic fluid. Business Analytics Manager reports a positive sonographic Nickerson sign. PANCREAS: The visualized portions are within normal limits. RIGHT KIDNEY: No evidence of hydronephrosis, stone, or mass. CONCLUSION: 1. Moderately distended gallbladder containing sludge. Sonographic findings of gallbladder wall thick ening, pericholecystic fluid and sonographic Nickerson's sign are consistent with acute cholecystitis. 2. Common bile duct is distended up to 9 mm although a definitive stone or mass is not demonstrated i n the visualized portions. Choledocholithiasis or distal obstructing lesion not imaged on this ultras ound cannot be entirely excluded. Cole Cordoba MD on April 28, 2017 at 8:24 Board Certified Radiologist. This report was verified electronically.
[2017-04-28] MEDS: POTASSIUM CHLOR 20 MEQ PREMIX 100 ML IV SCH ×2 (09:38→11:52)
--- NOTE | 2017-04-28 10:57 | PD ---
Data Data Last Documented VS Vital Signs Date Time Temp Pulse Resp B/P (MAP) Pulse Ox O2 Delivery O2 Flow Rate FiO2 04/28/17 08:40 18 04/28/17 07:59 80 100/58 (72) 99 Room Air 04/28/17 05:29 100.4 Orders Orders Complete Blood Count With Diff (04/28/17 00:11) Comprehensive Metabolic Panel (04/28/17 00:11) Urinalysis - C+S If Indicated (04/28/17 00:11) Ed Urine Pregnancytest Poc (04/28/17 00:11) Iv Access Insert/Monitor (04/28/17 00:11) Oxygen Administration (04/28/17 00:11) Oximetry (04/28/17 00:11) Lipase (04/28/17 00:11) Us Abdomen Gallbladder (04/28/17 ) Ecg Monitoring (04/28/17 04:30) NPO (04/28/17 04:30) Morphine Inj (Morphine Inj) (04/28/17 04:30) Ondansetron Inj (Zofran Inj) (04/28/17 04:30) Sodium Chlor 0.9% 1000 Ml Inj (Ns 1000 M (04/28/17 04:30) Chest, Single Ap (04/28/17 04:34) Influenzae A/B Antigen (04/28/17 04:36) Potassium Chloride Eff (K-Lyte Cl Eff) (04/28/17 05:45) Levofloxacin 500 Mg Premix Inj (Levaquin (04/28/17 05:45) Ondansetron Inj (Zofran Inj) (04/28/17 07:15) Acetaminophen 1000 Mg/100 Ml (Ofirmev 10 (04/28/17 07:15) Morphine Inj (Morphine Inj) (04/28/17 09:30) Sodium Chlor 0.9% 1000 Ml Inj (Ns 1000 M (04/28/17 09:30) Potassium Chlor 20 Meq Premix (Kcl 20 Me (04/28/17 09:30) Admit Order (Ed Use Only) (04/28/17 ) Labs Laboratory Tests Test 04/28/17 00:25 04/28/17 00:28 White Blood Count 7.4 TH/MM3 Red Blood Count 3.88 MIL/MM3 Hemoglobin 11.7 GM/DL Hematocrit 34.4 % Mean Corpuscular Volume 88.7 FL Mean Corpuscular Hemoglobin 30.1 PG Mean Corpuscular Hemoglobin Concent 34.0 % Red Cell Distribution Width 14.5 % Platelet Count 175 TH/MM3 Mean Platelet Volume 9.8 FL Neutrophils (%) (Auto) 75.5 % Lymphocytes (%) (Auto) 15.7 % Monocytes (%) (Auto) 6.1 % Eosinophils (%) (Auto) 2.4 % Basophils (%) (Auto) 0.3 % Neutrophils # (Auto) 5.6 TH/MM3 Lymphocytes # (Auto) 1.2 TH/MM3 Monocytes # (Auto) 0.5 TH/MM3 Eosinophils # (Auto) 0.2 TH/MM3 Basophils # (Auto) 0.0 TH/MM3 CBC Comment DIFF FINAL Differential Comment Blood Urea Nitrogen 6 MG/DL Creatinine 0.74 MG/DL Random Glucose 95 MG/DL Total Protein 6.9 GM/DL Albumin 3.1 GM/DL Calcium Level 8.4 MG/DL Alkaline Phosphatase 106 U/L Aspartate Amino Transf (AST/SGOT) 14 U/L Alanine Aminotransferase (ALT/SGPT) 44 U/L Total Bilirubin 0.4 MG/DL Sodium Level 142 MEQ/L Potassium Level 3.1 MEQ/L Chloride Level 106 MEQ/L Carbon Dioxide Level 29.2 MEQ/L Anion Gap 7 MEQ/L Estimat Glomerular Filtration Rate 90 ML/MIN Lipase 73 U/L Urine Color YELLOW Urine Turbidity HAZY Urine pH 7.5 Urine Specific [place] 1.014 Urine Protein TRACE mg/dL Urine Glucose (UA) NEG mg/dL Urine Ketones NEG mg/dL Urine Occult Blood NEG Urine Nitrite NEG Urine Bilirubin NEG Urine Urobilinogen 2.0 MG/DL Urine Leukocyte Esterase LARGE Urine RBC 1 /hpf Urine WBC 2 /hpf Urine Squamous Epithelial Cells 11 /hpf Urine Bacteria RARE /hpf Urine Mucus FEW /lpf Microscopic Urinalysis Comment CULT NOT INDICATED MDM Supervised Visit with VINNY: Yes Narrative Course 31-year-old woman, abdominal pain, epigastric tenderness, ultrasound suggestive of cholecystitis. Labs otherwise unremarkable. Spoke with Dr. Millie Peguero, will admit patient. Spoke with Dr. Clark with general surgery. Diagnosis Primary Impression: Right upper quadrant pain Additional Impressions: Hypokalemia Cholecystitis Admitting Information Admitting Physician Requests: Admit Ellis Rowland MD Apr 28, 2017 10:57
[2017-04-28] MEDS ORDERED: NALOXONE HCL 0.4 MG/ML AMP IV PUSH PRN (11:15)
[2017-04-28] MEDS ORDERED: SODIUM CHLORIDE 0.9% FLUSH 10 ML FLUSH IV FLUSH PRN (11:15)
[2017-04-28] MEDS ORDERED: FLUoxetine HCL 20 MG CAP PO SCH (11:15)
[2017-04-28] MEDS: SODIUM CHLOR 0.9% 1000 ML INJ 1,000 ML IV SCH ×2 (12:00→18:12)
[2017-04-28] MEDS ORDERED: ACETAMINOPHEN 325 MG TAB PO PRN ×2 (12:00)
[2017-04-28] MEDS ORDERED: RESP: ALBUTEROL 2.5 MG/IPRATROPIUM 0.5 MG NEB (PRN) NEB (12:00)
--- NOTE | 2017-04-28 12:50 | PD.CONS ---
cc: Edgardo Clark MD HPI Service General Surgery Consult Requested By Dr. Rowland Reason for Consult Abdominal pain; acute cholecystitis Primary Care Physician Mirna Smith MD History of Present Illness This is a 31 year old female with a past medical history of asthma, COPD, depression, ovarian cyst, frequent UTIs, sleep apnea with CPAP machine and panic attacks. She was recently in [place] earlier this month and hospitalized for abdominal pain. She was found to have gastritis but did not have an EGD. She has recently been around her children who have been sick with upper respiratory infections and pneumonia. When visiting her father in [place] she reports several of the family members were being treated for influenza. She was discharged home from the hospital and has never felt better. She traveled back home to [place]. She reports that she recently had fried chicken and a cheeseburger both of which caused an increase in the abdominal pain. The patient reports nausea and vomiting. She has a deep non productive cough. She reports a temperature max of 104 at home. She has had fever and chills. A gallbladder ultrasound was obtained which shows a moderately distended gallbladder containing sludge, gallbladder wall thickening , pericholecystic fluid and a dilated common bile duct. Her liver enzymes are normal. Her WBC is normal. She is hypokalemic and receiving replacement intravenously. A General Surgery consultation has been requested. Review of Systems Constitutional: COMPLAINS OF: Fatigue, Fever, DENIES: Change in appetite Endocrine: DENIES: Polydipsia, Polyuria, Polyphagia Eyes: DENIES: Diplopia, Eye inflammation Ears, nose, mouth, throat: DENIES: Hearing loss Respiratory: COMPLAINS OF: Cough, DENIES: Apneas, Sputum production, Shortness of breath Cardiovascular: DENIES: Chest pain Gastrointestinal: COMPLAINS OF: Abdominal pain, Nausea, Vomiting Genitourinary: DENIES: Urinary frequency Musculoskeletal: DENIES: Joint pain Integumentary: DENIES: Abnormal pigmentation Hematologic/lymphatic: DENIES: Bruising Immunologic/allergic: DENIES: Eczema Neurologic: DENIES: Abnormal gait, Headache Psychiatric: DENIES: Confusion, Mood changes, Depression Past Family Social History Past Medical History COPD Asthma Ovarian cyst Depression Sleep apnea with CPAP Panic attacks Frequent UTIs Past Surgical History C section x 1 Teeth extraction Tubal ligation Reported Medications Phenergan Loratadine Spiriva Proventil Albuterol Ibuprofen Fluoxetine Allergies: Coded Allergies: codeine (Unverified Allergy, Intermediate, RASH, HIVES, NAUSEA, 03/06/17) Active Ordered Medications Current Medications Medications (Trade) Dose Ordered Sig/Nory Route Start Time Stop Time Status Last Admin Potassium Chloride 100 ml @ 50 mls/hr Q2H IV 04/28/17 09:30 04/28/17 13:29 04/28/17 11:52 Ceftriaxone Sodium 1000 mg/ Sodium Chloride 100 ml @ 200 mls/hr Q24H IV 04/29/17 04:00 (PROzac) 40 mg DAILY PO 04/28/17 13:00 Sodium Chloride 1,000 ml @ 100 mls/hr Q10H IV 04/28/17 12:00 (NS Flush) 2 ml UNSCH PRN IV FLUSH 04/28/17 11:15 (NS Flush) 2 ml BID IV FLUSH 04/28/17 21:00 (Tylenol) 650 mg Q4H PRN PO 04/28/17 12:00 (Zofran Inj) 4 mg Q6H PRN IVP 04/28/17 12:00 (Tylenol) 650 mg Q6H PRN PO 04/28/17 12:00 (Morphine Inj) 2 mg Q3H PRN IV PUSH 04/28/17 12:00 (Morphine Inj) 4 mg Q3H PRN IV PUSH 04/28/17 12:00 (Narcan Inj) 0.4 mg UNSCH PRN IV PUSH 04/28/17 11:15 (Sylvie-Colace) 1 tab BID PO 04/28/17 21:00 (Duoneb Neb) 1 ampule Q2HR NEB PRN NEB 04/28/17 12:00 Family History Noncontributory Social History + tobacco use: currently 1-2 cigarettes daily; 6 months ago was smoking about 1.5 ppd + ETOH use: occasionally; not daily Denies illicit drug use Has three children. Is not currently employed. Physical Exam Vital Signs Vital Signs Date Time Temp Pulse Resp B/P (MAP) Pulse Ox O2 Delivery O2 Flow Rate FiO2 04/28/17 11:56 87 22 103/51 (68) 97 Room Air 04/28/17 08:40 18 04/28/17 07:59 80 18 100/58 (72) 99 Room Air 04/28/17 05:29 100.4 89 16 136/84 (101) 99 Room Air 04/28/17 00:05 99.3 93 18 138/64 (88) 99 Physical Exam GENERAL: 31 year old female resting in bed in no acute distress. SKIN: Warm and dry. HEAD: Atraumatic. Normocephalic. EYES: Pupils equal and round. No scleral icterus. No injection or drainage. ENT: No nasal bleeding or discharge. Mucous membranes pink and moist. S/p teeth extraction. NECK: Trachea midline. CARDIOVASCULAR: Regular rate and rhythm. RESPIRATORY: No accessory muscle use. Mild bilateral sided wheezing. Non productive cough with deep breathing. GASTROINTESTINAL: Abdomen soft, non-distended. Minimal RLQ tenderness with palpation; Moderate RUQ tenderness with palpation. MUSCULOSKELETAL: Extremities without clubbing, cyanosis, or edema. No obvious deformities. NEUROLOGICAL: Awake and alert. No obvious cranial nerve deficits. Motor grossly within normal limits. Five out of 5 muscle strength in the arms and legs. Normal speech. PSYCHIATRIC: Appropriate mood and affect; insight and judgment normal. Laboratory Laboratory Tests Test 04/28/17 00:25 04/28/17 00:28 White Blood Count 7.4 Red Blood Count 3.88 Hemoglobin 11.7 Hematocrit 34.4 Mean Corpuscular Volume 88.7 Mean Corpuscular Hemoglobin 30.1 Mean Corpuscular Hemoglobin Concent 34.0 Red Cell Distribution Width 14.5 Platelet Count 175 Mean Platelet Volume 9.8 Neutrophils (%) (Auto) 75.5 Lymphocytes (%) (Auto) 15.7 Monocytes (%) (Auto) 6.1 Eosinophils (%) (Auto) 2.4 Basophils (%) (Auto) 0.3 Neutrophils # (Auto) 5.6 Lymphocytes # (Auto) 1.2 Monocytes # (Auto) 0.5 Eosinophils # (Auto) 0.2 Basophils # (Auto) 0.0 CBC Comment DIFF FINAL Differential Comment Blood Urea Nitrogen 6 Creatinine 0.74 Random Glucose 95 Total Protein 6.9 Albumin 3.1 Calcium Level 8.4 Alkaline Phosphatase 106 Aspartate Amino Transf (AST/SGOT) 14 Alanine Aminotransferase (ALT/SGPT) 44 Total Bilirubin 0.4 Sodium Level 142 Potassium Level 3.1 Chloride Level 106 Carbon Dioxide Level 29.2 Anion Gap 7 Estimat Glomerular Filtration Rate 90 Lipase 73 Urine Color YELLOW Urine Turbidity HAZY Urine pH 7.5 Urine Specific [place] 1.014 Urine Protein TRACE Urine Glucose (UA) NEG Urine Ketones NEG Urine Occult Blood NEG Urine Nitrite NEG Urine Bilirubin NEG Urine Urobilinogen 2.0 Urine Leukocyte Esterase LARGE Urine RBC 1 Urine WBC 2 Urine Squamous Epithelial Cells 11 Urine Bacteria RARE Urine Mucus FEW Microscopic Urinalysis Comment CULT NOT INDICATED Date/Time Source Procedure Growth Status 04/28/17 04:55 Nasal Washing Influenza Types A,B Antigen (PIO) - Final NEGATIVE FOR FLU A AND B ANTIGEN.... Complete Result Diagram: 04/28/17 0025 04/28/17 0025 Imaging Last 48 hours Impressions Chest X-Ray 04/28/17 0434 Signed Impressions: Service Date/Time: Friday, April 28, 2017 04:46 - CONCLUSION: No acute disease. Jerson Lambert Jr., MD Gall Bladder Ultrasound 04/28/17 0000 Signed Impressions: Service Date/Time: Friday, April 28, 2017 07:40 - CONCLUSION: 1. Moderately distended gallbladder containing sludge. Sonographic findings of gallbladder wall thickening, pericholecystic fluid and sonographic Nickerson's sign are consistent with acute cholecystitis. 2. Common bile duct is distended up to 9 mm although a definitive stone or mass is not demonstrated in the visualized portions. Choledocholithiasis or distal obstructing lesion not imaged on this ultrasound cannot be entirely excluded. Cole Cordoba MD Assessment and Plan Assessment and Plan 31 year old female with multiple chronic medical conditions; acute cholecystitis -Would recommend further medical management of medical conditions -Likely would be medically stable in 48-72 hours for laparoscopic cholecystectomy which was discussed with the patient -Discussed procedure and all questions were answered -Clear liquids -Monitor liver enzymes -IVF -Pain control -Replace K and monitor -Thank you for this consult; We will continue to follow Attending Note - Dr. Clark Pt seen and evaluated; extremely tender in epigastrium and RUQ with guarding. Complex patient with bronchitis/influenza, improving; needs pulmonary toilet over next 24-48 hrs to minimize postop complications; consider inhaled steroids Will order MRCP, as CBD quite dilated, likely due to her passing stones. Plan surgery or Thursday, depending on MRCP and respiratory status, as well as repletion of K+ The exam, history, and the medical decision-making described in the above note were completed with the assistance of the mid-level provider. I reviewed and agree with the findings presented. I attest that I had a [id number] encounter with the patient on the same day, and personally performed and documented my assessment and findings in the medical record. Discussed Condition With Sarah Araiza Dr., Ms./Printing Press Machinist PATRICK Apr 28, 2017 12:50 Edgardo Clark MD Apr 28, 2017 22:51
[2017-04-28] MEDS: ONDANSETRON HCL 4 MG/2 ML VIAL IVP PRN ×2 (13:57→20:07)
[2017-04-28] MEDS: FLUoxetine HCL 20 MG CAP PO SCH ×2 (14:36→18:05)
--- NOTE | 2017-04-28 16:12 | HHI.HP ---
[facility] Service Family Medicine Team B Dr. Maria M Lafleur, Attending Primary Care Physician Mirna Smith MD Admission Diagnosis Acute cholecystitis Diagnoses: (1) Acute cholecystitis Diagnosis: Principal International Travel<30 Days: No Contact w/Intl Traveler<30days: No History of Present Illness Patient is a 31 year old female with history significant for asthma, COPD, JAISON, depression who presents to ED with abdominal pain for last 3 weeks. She notes that she was recently in [place], coming back on 04/26. She did have an EVD evaluation in [place] showing gastritis without scope. She does note sick contacts to include her children and she has had a cough from a personal URI for the last 6 weeks. She notes that she had a fever of approximately 103 Fahrenheit yesterday. She does note that fatty foods increase the abdominal pain which is located on the lower right abdomen as well as across the entire upper half of the abdomen. She endorses nausea and vomiting, nonbloody. She has nonproductive cough. She has mild fever on initial evaluation and is noted to have mild hypokalemia. White count is normal. Last menstrual period 04/15, usually normal. US confirming cholecystitis performed in the ED: Showing gallbladder sludge, gallbladder wall thickening, distention of the gallbladder and bile duct. General surgery already consulted and following, appreciate recommendations. Review of Systems Constitutional: COMPLAINS OF: Fever (102.8F oral), DENIES: Chills, Dizziness Eyes: DENIES: Blurred vision, Diplopia Ears, nose, mouth, throat: COMPLAINS OF: Throat pain, Hoarseness, DENIES: Nasal discharge, Ear Pain Respiratory: COMPLAINS OF: Cough, Wheezing, DENIES: Sputum production, Shortness of breath Cardiovascular: COMPLAINS OF: Lower Extremity Edema, DENIES: Chest pain, Palpitations Gastrointestinal: COMPLAINS OF: Abdominal pain, Constipation, Nausea, Vomiting , DENIES: Black stools, Bloody stools, Diarrhea Genitourinary: COMPLAINS OF: Abnormal vaginal bleeding, DENIES: Urinary frequency, Urinary incontinence, Dysuria Musculoskeletal: DENIES: Joint pain, Muscle aches Integumentary: COMPLAINS OF: Rash (psoriasis), DENIES: Pruritus Neurologic: COMPLAINS OF: Headache, DENIES: Abnormal gait, Seizures Psychiatric: COMPLAINS OF: Depression, DENIES: Anxiety, Hallucinations, Suicidal Ideation, Homicidal Ideation Past Family Social History Past Medical History COPD Asthma Ovarian cyst Depression -moderate persistent Sleep apnea with CPAP Panic attacks Frequent UTIs Psoriasis Past Surgical History C section x 1 Teeth extraction Tubal ligation Reported Medications Reported Meds & Active Scripts Active Phenergan (Promethazine HCl) 25 Mg Tablet 25 Mg PO Q6H PRN Albuterol Neb (Albuterol Sulfate) 2.5 Mg/3 Ml Neb 2.5 Mg NEB Q4HR NEB While awake Nebulizer 1 Mis Mis Ea INH DIRECTED Ibuprofen 600 Mg Tab 600 Mg PO Q8H PRN Fluoxetine (Fluoxetine HCl) 40 Mg Cap 40 Cap PO DAILY Nebulizer Air Tube/Plugs (Respiratory Therapy Supplies) 1 Mis Mis Units .XX Proventil Hfa 6.7 GM Inh (Albuterol Sulfate) 90 Mcg/Act Aer 2 Puff INH Q6H PRN Reported Allergy Relief (Loratadine) 10 Mg Tab 10 Mg PO BID Spiriva Handihaler (Tiotropium Inh) 18 Mcg Cap 18 Mcg INH DAILY 1 capsule = 18 mcg Allergies: Coded Allergies: codeine (Unverified Allergy, Intermediate, RASH, HIVES, NAUSEA, 03/06/17) Active Ordered Medications Inpatient Medications Acetaminophen (Tylenol) 650 mg Q6H PRN PO PAIN SCALE 1 TO 2; Start 04/28/17 at 12:00 Albuterol/ Ipratropium (Duoneb Neb) 1 ampule Q4HR NEB PRN NEB dyspnea; Start at 16:30 Ceftriaxone Sodium 1000 mg/ Sodium Chloride 100 ml @ 200 mls/hr Q24H IV ; Start 04/29/17 at 04:00 Fluoxetine HCl (PROzac) 40 mg DAILY PO Last administered on 04/28/17at 14:36; Start 04/28/17 at 13:00 Levofloxacin/ Dextrose 100 ml @ 100 mls/hr ONCE ONCE IV Last administered on 04/28/17at 06:38; Start 04/28/17 at 05:45; Stop 04/28/17 at 06:44; Status DC Morphine Sulfate (Morphine Inj) 4 mg Q3H PRN IV PUSH Pain 6-10;if unable to take PO; Start 04/28/17 at 12:00 Naloxone HCl (Narcan Inj) 0.4 mg UNSCH PRN IV PUSH SEE LABEL COMMENTS; Start at 11:15 Ondansetron HCl (Zofran Inj) 4 mg Q6H PRN IVP NAUSEA OR VOMITING Last administered on 04/28/17at 13:57; Start 04/28/17 at 12:00 Potassium Bicarb/ Potassium Chloride (K-Lyte Cl Eff) 50 meq ONCE ONCE PO Last administered on 04/28/17at 06:38; Start 04/28/17 at 05:45; Stop 04/28/17 at 05:46; Status DC Potassium Chloride 100 ml @ 50 mls/hr Q2H IV Last administered on 04/28/17at 11 :52; Start 04/28/17 at 09:30; Stop 04/28/17 at 13:29; Status DC Senna/Docusate Sodium (Sylvie-Colace) 1 tab BID PO ; Start 04/28/17 at 21:00 Sodium Chloride (NS Flush) 2 ml BID IV FLUSH ; Start 04/28/17 at 21:00 Family History Patient denies any significant family history Social History Tobacco: 1PPD, 6 months ago was smoking about 1.5 ppd Alcohol: 2x per week Illicit: denies Healthcare surrogate: Edgardo Mena, Physical Exam Vital Signs Vital Signs Date Time Temp Pulse Resp B/P (MAP) Pulse Ox O2 Delivery O2 Flow Rate FiO2 04/28/17 16:05 98.7 61 20 107/58 (74) 97 04/28/17 11:56 87 22 103/51 (68) 97 Room Air 04/28/17 08:40 18 04/28/17 07:59 80 18 100/58 (72) 99 Room Air 04/28/17 05:29 100.4 89 16 136/84 (101) 99 Room Air 04/28/17 00:05 99.3 93 18 138/64 (88) 99 Physical Exam GENERAL: Patient is a well-appearing female resting in bed sleeping comfortably. SKIN: Warm and dry. Psoriatic plaques noted on the elbows HEAD: Atraumatic. Normocephalic. EYES: Pupils equal and round. No scleral icterus. No injection or drainage. ENT: No nasal bleeding or discharge. Mucous membranes pink and moist. No tonsillar erythema or exudate noted. Dry cough noted NECK: Trachea midline. No JVD. No lymphadenopathy noted. CARDIOVASCULAR: Regular rate and rhythm. No murmurs, gallops, or rubs. RESPIRATORY: No accessory muscle use. Mild expiratory wheeze noted. Breath sounds equal bilaterally. GASTROINTESTINAL: Abdomen soft, tender to palpation over the RUQ and epigastric area as well as lower right abdomen, nondistended. Reduced bowel sounds noted. Hepatic and splenic margins not palpable. MUSCULOSKELETAL: Extremities without clubbing, cyanosis, or edema. No obvious deformities. NEUROLOGICAL: Awake and alert. No obvious cranial nerve deficits. Motor grossly within normal limits. Normal strength normal speech. PSYCHIATRIC: Appropriate mood and affect; insight and judgment normal. Laboratory Laboratory Tests Test 04/28/17 00:25 04/28/17 00:28 White Blood Count 7.4 Red Blood Count 3.88 Hemoglobin 11.7 Hematocrit 34.4 Mean Corpuscular Volume 88.7 Mean Corpuscular Hemoglobin 30.1 Mean Corpuscular Hemoglobin Concent 34.0 Red Cell Distribution Width 14.5 Platelet Count 175 Mean Platelet Volume 9.8 Neutrophils (%) (Auto) 75.5 Lymphocytes (%) (Auto) 15.7 Monocytes (%) (Auto) 6.1 Eosinophils (%) (Auto) 2.4 Basophils (%) (Auto) 0.3 Neutrophils # (Auto) 5.6 Lymphocytes # (Auto) 1.2 Monocytes # (Auto) 0.5 Eosinophils # (Auto) 0.2 Basophils # (Auto) 0.0 CBC Comment DIFF FINAL Differential Comment Blood Urea Nitrogen 6 Creatinine 0.74 Random Glucose 95 Total Protein 6.9 Albumin 3.1 Calcium Level 8.4 Alkaline Phosphatase 106 Aspartate Amino Transf (AST/SGOT) 14 Alanine Aminotransferase (ALT/SGPT) 44 Total Bilirubin 0.4 Sodium Level 142 Potassium Level 3.1 Chloride Level 106 Carbon Dioxide Level 29.2 Anion Gap 7 Estimat Glomerular Filtration Rate 90 Lipase 73 Urine Color YELLOW Urine Turbidity HAZY Urine pH 7.[address] 1.014 Urine Protein TRACE Urine Glucose (UA) NEG Urine Ketones NEG Urine Occult Blood NEG Urine Nitrite NEG Urine Bilirubin NEG Urine Urobilinogen 2.0 Urine Leukocyte Esterase LARGE Urine RBC 1 Urine WBC 2 Urine Squamous Epithelial Cells 11 Urine Bacteria RARE Urine Mucus FEW Microscopic Urinalysis Comment CULT NOT INDICATED Date/Time Source Procedure Growth Status 04/28/17 04:55 Nasal Washing Influenza Types A,B Antigen (PIO) - Final NEGATIVE FOR FLU A AND B ANTIGEN.... Complete Result Diagram: 04/28/175 04/28/17 0025 Imaging Last Impressions Chest X-Ray 04/28/17 0434 Signed Impressions: Service Date/Time: Friday, April 28, 2017 04:46 - CONCLUSION: No acute disease. Jerson Lambert Jr., MD Gall Bladder Ultrasound 04/28/17 0000 Signed Impressions: Service Date/Time: Friday, April 28, 2017 07:40 - CONCLUSION: 1. Moderately distended gallbladder containing sludge. Sonographic findings of gallbladder wall thickening, pericholecystic fluid and sonographic Nickerson's sign are consistent with acute cholecystitis. 2. Common bile duct is distended up to 9 mm although a definitive stone or mass is not demonstrated in the visualized portions. Choledocholithiasis or distal obstructing lesion not imaged on this ultrasound cannot be entirely excluded. MD Fadia Matthew VTE Risk Assessment Fadia VTE Risk Assessment: Mod/High Risk (score >= 2) Caprini Risk Assessment Model Point Value = 1 Point Value = 2 Point Value = 3 Point Value = 5 Age 41-60 Minor surgery BMI > 25 kg/m2 Swollen legs Varicose veins or History of unexplained or recurrent spontaneous Oral contraceptives or hormone replacement Sepsis (< 1 month) Serious lung disease, including pneumonia (< 1 month) Abnormal pulmonary function Acute myocardial infarction Congestive heart failure (< 1 month) History of inflammatory bowel disease Medical patient at bed rest Age 61-74 Arthroscopic surgery Major open surgery (> 45 min) Laparoscopic surgery (> 45 min) Malignancy Confined to bed (> 72 hours) Immobilizing plaster cast Central venous access Age >= 75 History of VTE Family history of VTE Factor V Leiden Prothrombin [id number] Lupus anticoagulant Anticardiolipin antibodies Elevated serum homocysteine Heparin-induced thrombocytopenia Other congenital or acquired thrombophilia Stroke (< 1 month) Elective arthroplasty Hip, pelvis, or leg fracture Acute spinal cord injury (< 1 month) Prophylaxis Regimen Total Risk Factor Score Risk Level Prophylaxis Regimen 0-1 Low Early ambulation 2 Moderate Order ONE of the following: *Sequential Compression Device (SCD) *Heparin 5000 units SQ BID 3-4 Higher Order ONE of the following medications: *Heparin 5000 units SQ TID *Enoxaparin/Lovenox 40 mg SQ daily (WT < 150 kg, CrCl > 30 mL/min) *Enoxaparin/Lovenox 30 mg SQ daily (WT < 150 kg, CrCl > 10-29 mL/min) *Enoxaparin/Lovenox 30 mg SQ BID (WT < 150 kg, CrCl > 30 mL/min) AND/OR *Sequential Compression Device (SCD) 5 or more Highest Order ONE of the following medications: *Heparin 5000 units SQ TID (Preferred with Epidurals) *Enoxaparin/Lovenox 40 mg SQ daily (WT < 150 kg, CrCl > 30 mL/min) *Enoxaparin/Lovenox 30 mg SQ daily (WT < 150 kg, CrCl > 10-29 mL/min) *Enoxaparin/Lovenox 30 mg SQ BID (WT < 150 kg, CrCl > 30 mL/min) AND *Sequential Compression Device (SCD) Assessment and Plan Assessment and Plan 31-year-old female with acute cholecystitis. Past medical history notable for COPD, JAISON, depression. Admitted to inpatient due to diagnosis of acute cholecystitis, will manage with antibiotics and control pain with IV and oral medications. Anticipate 2-3 day medical management with possible surgical management, general surgery consulted, appreciate recommendations Code Status Full code Discussed Condition With Dr. Magaña, Dr. Maria M Lafleur Problem List: (1) Acute cholecystitis ICD Codes: K81.0 - Acute cholecystitis Status: Acute Plan: Symptoms have persisted for weeks. No leukocytosis. Imaging does show evidence of cholecystitis with gallbladder wall thickening, large gallbladder and enlarged bile duct, biliary sludge. Low surgical risk, anticipate elective cholecystectomy to be performed during this hospitalization For now we will manage medically with supportive care, antibiotics, pain control General surgery consult, appreciate recommendations and management Pain: * Tylenol 650mg PO pain 1-2 * Morphine IV 2 mg every 3 hours pain 3-5 unable to tolerate PO * Morphine IV 4 mg every 3 hours pain 6-10 unable to tolerate PO * Will reassess breakthrough pain to ensure no evidence of acute abdomen * Bowel regimen to include scheduled Sylvie-Colace twice daily Infection: * Patient does not have fever now but did have temperatures at home and max fever of 100.4F in ED * Levaquin 500 mg IV 1 in ED * Will start Rocephin 1 g IV daily on 04/29 Support: * Clear liquid diet, will transition as indicated (2) Chronic obstructive lung disease Status: Chronic Plan: Chronic JAISON, COPD, asthma diagnoses. Med rec from outpatient setting include Spiriva, as needed albuterol. * Continue Spiriva starting 04/29 * Will give duo nebs every 4 hours as needed * Will order incentive spirometry * CXR on admission normal (3) Depression ICD Codes: F32.9 - Major depressive disorder, single episode, unspecified Status: Chronic Plan: Moderate persistent depression with current Prozac 40 mg daily use. No SI/HI will continue home dose. (4) Tobacco abuse ICD Codes: Z72.0 - Tobacco use Status: Chronic Plan: Patient states she has not had a cigarette in a while given her illness. Does not appear to require a nicotine patch at this time but will order as needed. Counseled on smoking cessation (5) Psoriasis Status: Chronic Plan: Chronic, stable, patient uses topical [id number] but states these did not work * Will give medium potency topical steroid triamcinolone acetonide cream 0.1% to be used twice daily (6) Fluids/Electrolytes/Nutrition/Prophylaxis Status: Acute Plan: Fluids: tolerating PO/NS @ 100ml/hr Electrolytes: monitor and replete as needed Nutrition: Clear liquid diet DVT Prophylaxis: Early ambulation. If patient has reduced ambulation will initiate Lovenox. Will order bilateral SCDs while in bed. GI Prophylaxis: None indicated, may consider PPI if symptoms suggest the need for this PRN anti-HTN: Vasotec 1.35mg IV PRN for SBP > 180/ and/or DBP > 100 Physician Certification 2 Midnight Certification Type: Admission for Inpatient Services Order for Inpatient Services The services are ordered in accordance with Medicare regulations or non- Medicare payer requirements, as applicable. In the case of services not specified as inpatient-only, they are appropriately provided as inpatient services in accordance with the 2-midnight benchmark. Estimated LOS (days): 3 days is the estimated time the patient will need to remain in the hospital, assuming treatment plan goals are met and no additional complications. Post-Hospital Plan: Home Problem Qualifiers (1) Depression: Qualified Codes: F33.1 - Major depressive disorder, recurrent, moderate Mirna Smith MD Apr 28, 2017 16:12
[2017-04-28] MEDS: MORPHINE SULFATE 2 MG/ML INJ IV PUSH PRN ×3 (16:40→23:33)
[2017-04-28] MEDS ORDERED: ENALAPRILAT 1.25 MG/ML VIAL IV PUSH PRN (17:00)
[2017-04-28] MEDS: BENZONATATE 100 MG CAP PO PRN (18:05)
[2017-04-28] MEDS: RESP: ALBUTEROL 2.5 MG/IPRATROPIUM 0.5 MG NEB (PRN) NEB (18:35)
[2017-04-28] MEDS: DOCUSATE SODIUM 50 MG/SENNA 8.6 MG TAB PO SCH (20:08)
[2017-04-28] MEDS: SODIUM CHLORIDE 0.9% FLUSH 10 ML FLUSH IV FLUSH SCH (20:08)
[2017-04-28] MEDS: TRIAMCINOLONE ACETONIDE 0.1% CREAM 15 GM TOPICAL SCH (23:32)
[2017-04-29] VITALS (7 sets, daily range): BP systolic 98–107; BP diastolic 46–66; PULSE 65–73; RESP 17–19; TEMP 97.8–100; O2SAT 91–99
[2017-04-29] MEDS: RESP: ALBUTEROL 2.5 MG/IPRATROPIUM 0.5 MG NEB (PRN) NEB ×3 (00:32→10:52)
[2017-04-29] MEDS: ONDANSETRON HCL 4 MG/2 ML VIAL IVP PRN ×3 (03:52→18:10)
[2017-04-29] MEDS: cefTRIAXone INJ 1,000 MG in SODIUM CHLORIDE 0.9% INJ 100 ML IV SCH (03:52)
[2017-04-29] MEDS: MORPHINE SULFATE 2 MG/ML INJ IV PUSH PRN ×6 (03:53→21:32)
[2017-04-29] MEDS: BENZONATATE 100 MG CAP PO PRN ×2 (04:14→21:32)
[2017-04-29] MEDS: TRIAMCINOLONE ACETONIDE 0.1% CREAM 15 GM TOPICAL SCH ×3 (04:16→18:10)
[2017-04-29 07:33] LABS: AUTOMATED NEUTROPHIL # 2.4 TH/MM3 (1.8-7.7); BASOPHIL % 0.3 % (0.0-2.0); EOSINOPHIL % 0.9 % (0.0-4.0); HEMATOCRIT 29.1 % (35.0-46.0); HEMOGLOBIN 9.9 GM/DL (11.6-15.3); LYMPHOCYTE # 1.1 TH/MM3 (1.0-4.8); MEAN CELL VOLUME 88.3 FL (80.0-100.0); MEAN CORPUSCULAR HGB CONC 33.9 % (32.0-36.0); MEAN PLATELET VOLUME 10.1 FL (7.0-11.0); MONO % 8.9 % (0.0-8.0); MONOCYTE # 0.3 TH/MM3 (0-0.9); NEUT % 61.9 % (16.0-70.0); PLATELET COUNT 135 TH/MM3 (150-450); RED CELL DISTRIBUTION WIDTH 14.5 % (11.6-17.2); WHITE BLOOD COUNT 3.9 TH/MM3 (4.0-11.0)
[2017-04-29] MEDS: DOCUSATE SODIUM 50 MG/SENNA 8.6 MG TAB PO SCH ×2 (07:33→21:30)
[2017-04-29] MEDS: SODIUM CHLORIDE 0.9% FLUSH 10 ML FLUSH IV FLUSH SCH ×2 (07:34→21:31)
[2017-04-29] MEDS: SODIUM CHLOR 0.9% 1000 ML INJ 1,000 ML IV SCH ×2 (07:34→18:10)
[2017-04-29] MEDS: TIOTROPIUM BROMIDE 18 MCG INH INH SCH (07:40)
[2017-04-29 08:27] LABS: ALBUMIN 2.4 GM/DL (3.4-5.0); ALKALINE PHOSPHATASE 184 U/L (45-117); ALT (GPT) 73 U/L (10-53); AST (GOT) 75 U/L (15-37); BICARBONATE 26.7 MEQ/L (21.0-32.0); BLOOD UREA NITROGEN 4 MG/DL (7-18); CALCIUM 7.7 MG/DL (8.5-10.1); CHLORIDE 105 MEQ/L (98-107); CREATININE 0.64 MG/DL (0.50-1.00); GLOMERULAR FILTRATION RATE 107 ML/MIN (>89); GLUCOSE,RANDOM 82 MG/DL (74-106); SODIUM (NA) 139 MEQ/L (136-145); TOTAL BILIRUBIN ADULT 0.4 MG/DL (0.2-1.0); TOTAL PROTEIN 6.1 GM/DL (6.4-8.2)
[2017-04-29] MEDS ORDERED: GADODIAMIDE PF 287 MG/ML 20 ML VIAL (for RAD MRI) IVCONTRAST ONE (09:22)
--- NOTE | 2017-04-29 09:47 | RADRPT ---
EXAM DATE/TIME: 04/29/2017 08:26 [place] COMPARISON: None. INDICATIONS : Abdominal pain. CONTRAST: <<20>> cc Omniscan (gadodiamide) IV MEDICAL HISTORY : Chronic obstructive pulmonary disease. Asthma SURGICAL HISTORY : section. Tubal ligation. ENCOUNTER: Initial ACUITY: 2 day PAIN SCORE: 4/10 LOCATION: abdomen TECHNIQUE: Multiplanar, multisequence magnetic resonance imaging of the abdomen was performed. High-resolution 3D dataset was utilized to reconstruct maximum-intensity projection (MIP) images. FINDINGS: The gallbladder wall is thickened with pericholecystic inflammatory changes and trace fluid most jose acteristic of an acute cholecystitis. On axial T2 weighted images there is a small filling defect in the distal common bile duct probably r epresenting a tiny gallstone. Common bile duct is dilated to about 11 mm in diameter and is mild intr ahepatic ductal dilatation. Otherwise no significant abnormality in the liver, spleen, adrenals or kidneys. Pancreas unremarkable . Pancreatic duct has normal caliber. CONCLUSION: Gall bladder wall thickening with pericholecystic inflammatory changes most characteristic of acute c holecystitis. There is a tiny filling defect in the distal common duct most characteristic of choledo cholithiasis. Common bile duct dilated to 11 mm. August Thompson MD on April 29, 2017 at 9:37 Board Certified Radiologist. This report was verified electronically.
[2017-04-29] MEDS ORDERED: SENNOSIDES 8.6 MG TAB PO PRN (11:30)
[2017-04-29] MEDS ORDERED: LACTULOSE SYRUP 20 GM/30 ML CUP PO PRN (11:30)
[2017-04-29] MEDS ORDERED: MAGNESIUM HYDROXIDE SUSP 30 ML CUP PO PRN (11:30)
[2017-04-29] MEDS ORDERED: BISACODYL 10 MG SUPP RECTAL PRN (11:30)
--- NOTE | 2017-04-29 12:06 | HHI.FPPN ---
Subjective Remarks Patient was seen and examined approximately 1130am after she returned from [facility]. She states she is tired from the morphine but it is helping to bring her pain down to about a 4/10 severity which is much improved from before. She does note she has not had a bowel movement in over 1 week and had some lower abdominal discomfort. NO fevers, chills, vomiting. Some nausea depending on what she is drinking, now tolerating Gatorade and water. She does not want a suppository. Cough is notably bothersome but at baseline, nonproductive. (Mirna Smith MD) Objective Vitals Vital Signs Date Time Temp Pulse Resp B/P (MAP) Pulse Ox O2 Delivery O2 Flow Rate FiO2 04/29/17 10:57 96 04/29/17 09:18 97.8 04/29/17 08:00 100.0 73 17 107/66 (80) 95 04/29/17 00:00 98.3 69 18 101/46 (64) 97 04/28/17 20:55 21 04/28/17 20:00 99.2 71 18 103/58 (73) 93 04/28/17 17:07 98.0 63 17 114/56 (75) 95 04/28/17 16:05 98.7 61 20 107/58 (74) 97 04/28/17 11:56 87 22 103/51 (68) 97 Room Air I/O 04/28/17 04/28/17 04/28/17 04/29/17 04/29/17 04/29/17 07:00 15:00 23:00 07:00 15:00 23:00 Intake Total 1000 ml 400 ml 290 ml Output Total 400 ml Balance 1000 ml 400 ml -110 ml Intake Oral 290 ml IV Total 1000 ml 400 ml Output Urine Total 400 ml # Voids 3 # Bowel Movements 0 (Mirna Smith MD) Result Diagram: 04/29/17 0619 04/29/17 0619 Imaging Last Impressions Cholangiopancreatography MRI 04/29/17 0000 Signed Impressions: Service Date/Time: Saturday, April 29, 2017 08:26 - CONCLUSION: Gall bladder wall thickening with pericholecystic inflammatory changes most characteristic of acute cholecystitis. There is a tiny filling defect in the distal common duct most characteristic of choledocholithiasis. Common bile duct dilated to 11 mm. August Thompson MD Chest X-Ray 04/28/17 0434 Signed Impressions: Service Date/Time: Friday, April 28, 2017 04:46 - CONCLUSION: No acute disease. Jerson Lambert Jr., MD Gall Bladder Ultrasound 04/28/17 0000 Signed Impressions: Service Date/Time: Friday, April 28, 2017 07:40 - CONCLUSION: 1. Moderately distended gallbladder containing sludge. Sonographic findings of gallbladder wall thickening, pericholecystic fluid and sonographic Nickerson's sign are consistent with acute cholecystitis. 2. Common bile duct is distended up to 9 mm although a definitive stone or mass is not demonstrated in the visualized portions. Choledocholithiasis or distal obstructing lesion not imaged on this ultrasound cannot be entirely excluded. Cole Cordoba MD Objective Remarks GENERAL: Patient is a well-appearing female resting in bed sleeping comfortably , easy arousable. Partner at bedside. SKIN: Warm and dry. Psoriatic plaques noted on the elbows, not draining HEAD: Atraumatic. Normocephalic. EYES: Pupils equal and round. No scleral icterus. No injection or drainage. ENT: No nasal bleeding or discharge. Mucous membranes pink and moist. No tonsillar erythema or exudate noted. Dry cough noted. NECK: Trachea midline. No JVD. No lymphadenopathy noted. CARDIOVASCULAR: Regular rate and rhythm. No murmurs, gallops, or rubs. RESPIRATORY: No accessory muscle use. Mild expiratory wheeze noted. Breath sounds equal bilaterally. GASTROINTESTINAL: Abdomen soft, tender to palpation over the RUQ and epigastric area as well as lower right abdomen, nondistended. Reduced bowel sounds noted. Hepatic and splenic margins not palpable. MUSCULOSKELETAL: Extremities without clubbing, cyanosis, or edema. No obvious deformities. NEUROLOGICAL: Awake and alert. No obvious cranial nerve deficits. Motor grossly within normal limits. Normal strength normal speech. PSYCHIATRIC: Appropriate mood and affect; insight and judgment normal. Medications and IVs Inpatient Medications Acetaminophen (Tylenol) 650 mg Q6H PRN PO PAIN SCALE 1 TO 2 Last administered on 04/28/17at 18:11; Start 04/28/17 at 12:00 Albuterol/ Ipratropium (Duoneb Neb) 1 ampule Q4HR NEB PRN NEB dyspnea Last administered on 04/29/17at 10:52; Start 04/28/17 at 16:30 Benzonatate (Tessalon) 100 mg TID PRN PO cough Last administered on 04/29/17 04:14; Start 04/28/17 at 17:00 Bisacodyl (Dulcolax Supp) 10 mg DAILY PRN RECTAL SEVERE CONSITIPATION; Start at 11:30; Status UNV Ceftriaxone Sodium 1000 mg/ Sodium Chloride 100 ml @ 200 mls/hr Q24H IV Last administered on 04/29/17at 03:52; Start 04/29/17 at 04:00 Enalaprilat (Vasotec Inj) 1.25 mg Q6H PRN IV PUSH SBP> OR = 180, DBP> OR = 100 ; Start 04/28/17 at 17:00 Fluoxetine HCl (PROzac) 40 mg DAILY PO Last administered on 04/28/17at 18:05; Start 04/28/17 at 13:00 Lactulose (Lactulose Liq) 30 ml DAILY PRN PO SEVERE CONSITIPATION; Start at 11:30; Status UNV Levofloxacin/ Dextrose 100 ml @ 100 mls/hr ONCE ONCE IV Last administered on 04/28/17 06:38; Start 04/28/17 at 05:45; Stop 04/28/17 at 06:44; Status DC Magnesium Hydroxide (Milk Of Magnesia Liq) 30 ml Q12H PRN PO Mild constipation ; Start 04/29/17 at 11:30; Status UNV Morphine Sulfate (Morphine Inj) 4 mg Q3H PRN IV PUSH Pain 6-10;if unable to take PO Last administered on 04/29/17at 10:28; Start 04/28/17 at 12:00 Naloxone HCl (Narcan Inj) 0.4 mg UNSCH PRN IV PUSH SEE LABEL COMMENTS; Start at 11:15 Ondansetron HCl (Zofran Inj) 4 mg Q6H PRN IVP NAUSEA OR VOMITING Last administered on 04/29/17at 10:27; Start 04/28/17 at 12:00 Potassium Bicarb/ Potassium Chloride (K-Lyte Cl Eff) 50 meq ONCE ONCE PO Last administered on 04/28/17at 06:38; Start 04/28/17 at 05:45; Stop 04/28/17 at 05:46; Status DC Potassium Chloride 100 ml @ 50 mls/hr Q2H IV Last administered on 04/28/17at 11 :52; Start 04/28/17 at 09:30; Stop 04/28/17 at 13:29; Status DC Senna/Docusate Sodium (Sylvie-Colace) 1 tab BID PO Last administered on at 07:33; Start 04/28/17 at 21:00 Sennosides (Senokot) 17.2 mg Q12H PRN PO Moderate constipation; Start 04/29/17 at 11:30; Status UNV Sodium Chloride (NS Flush) 2 ml BID IV FLUSH Last administered on 04/29/17at 07: 34; Start 04/28/17 at 21:00 Tiotropium [place] (Spiriva Inh) 18 mcg DAILY INH Last administered on at 07:40; Start 04/29/17 at 09:00 Triamcinolone Acetonide (Aristocort 0.1% Cream) 1 applic Q6HR TOPICAL Last administered on 04/29/17at 04:16; Start 04/28/17 at 18:00 (Mirna Smtih MD) Urinary Catheter: No (Mirna Smith MD) Vascular Central Line Catheter: No (Mirna Smith MD) A/P Assessment and Plan 31-year-old female with acute cholecystitis. Past medical history notable for COPD, JAISON, depression. Admitted to inpatient due to diagnosis of acute cholecystitis, will manage with antibiotics and control pain with IV and oral medications. Discharge Planning Anticipate cholecystectomy this hospital stay. Anticipate 1-3 day post operative monitoring with discharge to home. General surgery consulted, appreciate management (Mirna Smith MD) Attending Attestation After discussion with Drs. Magaña and Luis, pt. was seen this a.m. at 1015 and examined. She c/o upper right quadrant abdominal discomfort and vague lower abdominal discomfort. Heart and lungs are clear. Abdomen--Some mild guarding, faint bowel sounds. She understands that the plan is careful monitoring and maximizing her pulmonary status. Pt. was informed that her CBD is dilated to 11 mm. Anticipate laparoscopic cholecystectomy per surgery. I agree with the findings as noted above, and with the documented plan. (Maria M Lafleur MD) Problem List: (1) Acute cholecystitis ICD Codes: K81.0 - Acute cholecystitis Status: Acute Plan: Symptoms have persisted for weeks. No leukocytosis. Ultrasound does show evidence of cholecystitis with gallbladder wall thickening, large gallbladder and enlarged bile duct, biliary sludge. MRCP 04/29 showing dilated common bile duct 11 mm suggestive of stone. Patient is not a high surgical risk , anticipate elective cholecystectomy to be performed during this hospitalization. 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 Patient will need to be NPO at midnight prior to surgery (2) Chronic obstructive lung disease Status: Chronic Plan: Chronic JAISON, COPD, asthma diagnoses. Med rec from outpatient setting include Spiriva, as needed albuterol. Not currently on inhaled corticosteroid. * Continue Spiriva starting 04/29 * Will add Symbicort 160 mcg/formoterol 4.5 mcg at 2puffs twice daily * Duonebs every 6 hr scheduled, with Albuterol every 2 hr as needed for wheezing , SOB * Continue incentive spirometry * Continue Tessalon Perrles for cough PRN * CXR on admission normal (3) Depression ICD Codes: F32.9 - Major depressive disorder, single episode, unspecified Status: Chronic Plan: Moderate persistent depression with current Prozac 40 mg daily use. No SI/HI will continue home dose. (4) Tobacco abuse ICD Codes: Z72.0 - Tobacco use Status: Chronic Plan: Patient states she has not had a cigarette in a while given her illness. Does not appear to require a nicotine patch at this time but will order as needed. Counseled on smoking cessation (5) Psoriasis Status: Chronic Plan: Chronic, stable, patient uses topical [id number] but states these did not work * Will give medium potency topical steroid triamcinolone acetonide cream 0.1% to be used twice daily (6) Anemia ICD Codes: D64.9 - Anemia, unspecified Status: Acute Plan: Mild. Suspect anemia is dilutional. Trend CBC and monitor closely. (7) Hypokalemia ICD Codes: E87.6 - Hypokalemia Status: Acute Plan: Mild hypokalemia, likely related to acute illness affecting nutrition. Will replete as needed and monitor (8) Fluids/Electrolytes/Nutrition/Prophylaxis Status: Acute Plan: Fluids: tolerating PO/NS @ 100ml/hr Electrolytes: monitor and replete as needed Nutrition: Clear liquid diet DVT Prophylaxis: Early ambulation. If patient has reduced ambulation will initiate Lovenox. Will order bilateral SCDs while in bed. GI Prophylaxis: None indicated, may consider PPI if symptoms suggest the need for this PRN anti-HTN: Vasotec 1.35mg IV PRN for SBP > 180/ and/or DBP > 100 (Mirna Smith MD) Problem Qualifiers (1) Depression: Qualified Codes: F33.1 - Major depressive disorder, recurrent, moderate Mirna Smith MD Apr 29, 2017 12:06 Maria M Lafleur MD Apr 29, 2017 13:39
[2017-04-29] MEDS ORDERED: POTASSIUM CHLORIDE 20 MEQ CONTROLLED RELEASE TAB PO ONE (12:15)
[2017-04-29] MEDS: BUDESONIDE-FORMOTEROL 160/4.5 MCG INHALER INH SCH ×2 (13:06→21:31)
--- NOTE | 2017-04-29 13:57 | PD.CONS ---
HPI History of Present Illness This is a 31 year old morbidly obese female who presented to the emergency room on 04/28/17 with abdominal pain 3 weeks. Patient has had low-grade fever 100% in the past 24 hours, continues to have nausea, no vomiting, right upper quadrant and epigastric tenderness, with some mild generalized diffuse abdominal tenderness. Patient is also noting a cough with some possible upper respiratory infection for the past 6 weeks. Patient currently denies any diarrhea but does have problems with chronic constipation often known. States her last BM was 4 days ago and has not been drinking as much fluids over the past few weeks due to her illness. Patient notes GI workup, EGD 3 years ago and is followed by Dr. Lang in [place]. Currently patient is awake and answers questions appropriately. Patient denies any previous history of gallstones. (Maria M Avila) PFSH Past Medical History Obstructive sleep apnea, uses CPAP at night COPD, asthma Depression Panic attacks UTIs Psoriasis Lower abdominal pain with ovarian cyst Smoker Past Surgical History 1 Teeth extraction Tubal ligation (Maria M Avila) Coded Allergies: codeine (Unverified Allergy, Intermediate, RASH, HIVES, NAUSEA, 03/06/17) Medications Administered Medications Medications (Trade) Dose Ordered Sig/Nory Route PRN Reason Start Time Stop Time Status Last Admin Dose Admin Ceftriaxone Sodium 1000 mg/ Sodium Chloride 100 ml @ 200 mls/hr Q24H IV 04/29/17 04:00 04/29/17 03:52 Fluoxetine HCl (PROzac) 40 mg DAILY PO 04/28/17 13:00 04/28/17 18:05 Sodium Chloride 1,000 ml @ 100 mls/hr Q10H IV 04/28/17 12:00 04/29/17 07:34 Sodium Chloride (NS Flush) 2 ml BID IV FLUSH 04/28/17 21:00 04/29/17 07:34 Ondansetron HCl (Zofran Inj) 4 mg Q6H PRN IVP NAUSEA OR VOMITING 04/28/17 12:00 04/29/17 10:27 Acetaminophen (Tylenol) 650 mg Q6H PRN PO PAIN SCALE 1 TO 2 04/28/17 12:00 04/28/17 18:11 Morphine Sulfate (Morphine Inj) 2 mg Q3H PRN IV PUSH Pain 3-5; if unable to take PO 04/28/17 12:00 04/28/17 16:40 Morphine Sulfate (Morphine Inj) 4 mg Q3H PRN IV PUSH Pain 6-10;if unable to take PO 04/28/17 12:00 04/29/17 10:28 Senna/Docusate Sodium (Sylvie-Colace) 1 tab BID PO 04/28/17 21:00 04/29/17 07:33 Benzonatate (Tessalon) 100 mg TID PRN PO cough 04/28/17 17:00 04/29/17 04:14 Triamcinolone Acetonide (Aristocort 0.1% Cream) 1 applic Q6HR TOPICAL 04/28/17 18:00 04/29/17 13:06 Tiotropium [place] (Spiriva Inh) 18 mcg DAILY INH 04/29/17 09:00 04/29/17 07:40 Budesonide/ Formoterol Fumarate (Symbicort 160-4.5 Mcg Inh) 2 puff Q12HR INH 04/29/17 12:00 04/29/17 13:06 Family History Positive for cancer on maternal and paternal Colon cancer with great-grandmother and maternal Social History Smoker for 20 years, now smoking 2-3 cigarettes a day EtOH at least twice a week Denies any illicit drugs (Maria M Avila) Review of Systems Constitutional: COMPLAINS OF: Fever Respiratory: COMPLAINS OF: Cough Gastrointestinal: COMPLAINS OF: Abdominal pain, Nausea (Maria M Avila) GI Exam Vitals I&O Vital Signs Date Time Temp Pulse Resp B/P (MAP) Pulse Ox O2 Delivery O2 Flow Rate FiO2 04/29/17 12:00 98.0 68 19 98/50 (66) 96 04/29/17 10:57 96 04/29/17 09:18 97.8 04/29/17 08:00 100.0 73 17 107/66 (80) 95 04/29/17 00:00 98.3 69 18 101/46 (64) 97 04/28/17 20:55 21 04/28/17 20:00 99.2 71 18 103/58 (73) 93 04/28/17 17:07 98.0 63 17 114/56 (75) 95 04/28/17 16:05 98.7 61 20 107/58 (74) 97 I/O 04/28/17 04/28/17 04/28/17 04/29/17 04/29/17 04/29/17 07:00 15:00 23:00 07:00 15:00 23:00 Intake Total 1000 ml 400 ml 290 ml Output Total 400 ml Balance 1000 ml 400 ml -110 ml Intake Oral 290 ml IV Total 1000 ml 400 ml Output Urine Total 400 ml # Voids 3 # Bowel Movements 0 Imaging Last Impressions Cholangiopancreatography MRI 04/29/17 0000 Signed Impressions: Service Date/Time: Saturday, April 29, 2017 08:26 - CONCLUSION: Gall bladder wall thickening with pericholecystic inflammatory changes most characteristic of acute cholecystitis. There is a tiny filling defect in the distal common duct most characteristic of choledocholithiasis. Common bile duct dilated to 11 mm. August Thompson MD Chest X-Ray 04/28/17 0434 Signed Impressions: Service Date/Time: Friday, April 28, 2017 04:46 - CONCLUSION: No acute disease. Jerson Lambert Jr., MD Gall Bladder Ultrasound 04/28/17 0000 Signed Impressions: Service Date/Time: Friday, April 28, 2017 07:40 - CONCLUSION: 1. Moderately distended gallbladder containing sludge. Sonographic findings of gallbladder wall thickening, pericholecystic fluid and sonographic Nickerson's sign are consistent with acute cholecystitis. 2. Common bile duct is distended up to 9 mm although a definitive stone or mass is not demonstrated in the visualized portions. Choledocholithiasis or distal obstructing lesion not imaged on this ultrasound cannot be entirely excluded. Cole Cordoba MD Laboratory Test 04/29/17 06:19 White Blood Count 3.9 TH/MM3 Red Blood Count 3.30 MIL/MM3 Hemoglobin 9.9 GM/DL Hematocrit 29.1 % Mean Corpuscular Volume 88.3 FL Mean Corpuscular Hemoglobin 30.0 PG Mean Corpuscular Hemoglobin Concent 33.9 % Red Cell Distribution Width 14.5 % Platelet Count 135 TH/MM3 Mean Platelet Volume 10.1 FL Neutrophils (%) (Auto) 61.9 % Lymphocytes (%) (Auto) 28.0 % Monocytes (%) (Auto) 8.9 % Eosinophils (%) (Auto) 0.9 % Basophils (%) (Auto) 0.3 % Neutrophils # (Auto) 2.4 TH/MM3 Lymphocytes # (Auto) 1.1 TH/MM3 Monocytes # (Auto) 0.3 TH/MM3 Eosinophils # (Auto) 0.0 TH/MM3 Basophils # (Auto) 0.0 TH/MM3 CBC Comment DIFF FINAL Differential Comment Blood Urea Nitrogen 4 MG/DL Creatinine 0.64 MG/DL Random Glucose 82 MG/DL Total Protein 6.1 GM/DL Albumin 2.4 GM/DL Calcium Level 7.7 MG/DL Alkaline Phosphatase 184 U/L Aspartate Amino Transf (AST/SGOT) 75 U/L Alanine Aminotransferase (ALT/SGPT) 73 U/L Total Bilirubin 0.4 MG/DL Sodium Level 139 MEQ/L Potassium Level 3.0 MEQ/L Chloride Level 105 MEQ/L Carbon Dioxide Level 26.7 MEQ/L Anion Gap 7 MEQ/L Estimat Glomerular Filtration Rate 107 ML/MIN Date/Time Source Procedure Growth Status 04/28/17 04:55 Nasal Washing Influenza Types A,B Antigen (PIO) - Final NEGATIVE FOR FLU A AND B ANTIGEN.... Complete Physical Examination HEENT: Pupils round and reactive to light; normocephalic; atraumatic; no jaundice. Morbid obese NECK: Neck is supple, obese CHEST: Diminished breath sounds bilateral, no obvious rhonchi occasional expiratory wheeze CARDIAC: Regular rate and rhythm ABDOMEN: Obese, large, Soft, tenderness to light palpation generalized with special attention to right upper quadrant and epigastric region, bowel sounds are present in all four quadrants. EXTREMITIES: No major lower extremity edema. SKIN: Normal; no rash; no jaundice. FISHERIES BIOLOGIST: No focal deficits; alert and oriented times three., Speech clear (Maria M Avila) Assessment and Plan Assessment: (1) Acute cholecystitis ICD Codes: K81.0 - Acute cholecystitis Status: Acute (2) Anemia ICD Codes: D64.9 - Anemia, unspecified Status: Acute (3) Abdominal pain ICD Codes: R10.9 - Abdominal pain Status: Acute (4) BMI 36.0-36.9,adult ICD Codes: Z68.36 - Body mass index (BMI) 36.0-36.9, adult Plan Patient presented with abdominal pain 3 weeks, gallbladder ultrasound done on 04/28/17 shows moderate distended gallbladder containing sludge, wall thickening , Gt cholecystic fluid. Common bile duct is distended up to 9 mm although a definite stone or mass is not demonstrated in the visualized portions cholelithiasis or distal nonobstructing lesion is not imaged but cannot be excluded. MRCP done on 04/29/17 shows gallbladder wall thickening with Gt cholecystic inflammatory changes most characteristic of acute cholelithiasis. There is a tiny filling defect in the common bile duct most characteristic cholelithiasis common bile duct dilated to 11 mm., Lab data shows LFTs 75 AST, 73 ALT alkaline phosphatase 184, potassium 3, WBC count 3.9. Anemia unspecified, currently 9.9 without obvious bleeding Low-grade fever within the past 24 hours 100. Nausea currently being managed with Zofran, no further vomiting Epigastric right upper quadrant abdominal tenderness continues Constipation no BM 4 days this appears to be acute on chronic problem, GS consult noted. According to note plan for surgery or Thursday Plan PPI IV Mag citrate 1 tonight, may repeat 1 if no effect. Encourage clear liquids as tolerated for now Continue other bowel regimen including Dulcolax suppository if no results from mag citrate. Further testing and recommendations will be based on findings. Currently plan is for GS to continue with their plan of care, surgical intervention or Thursday Monitor for any acute bleeding Monitor labs with special attention to hemoglobin Supportive care patient was seen by myself and Dr. Hendricks, this note was written on his behalf (Maria M Avila) Physician Comments Agree with above assessment and plan. MRCP reviewed and like small CBD stone, Still symptomatic, will schedule ERCP in AM. Risk, benefits and possible complications explained to the patient. Thank you for the consult. (Carmelo Hendricks MD) Maria M Avila Apr 29, 2017 13:57 Carmelo Hendricks MD Apr 29, 2017 15:03
[2017-04-29] MEDS ORDERED: MISCELLANEOUS NURSING INFORMATION OTHER ONE (14:30)
[2017-04-29] MEDS ORDERED: MAGNESIUM CITRATE SOLN 300 ML BTL PO ONE (15:00)
--- NOTE | 2017-04-29 15:35 | HHI.PR ---
cc: Edgardo Clark MD Subjective Subjective Notes Resting in bed Family at bedside Feels like cough is better; breathing treatments helping Objective Vitals/I&O Vital Signs Date Time Temp Pulse Resp B/P (MAP) Pulse Ox O2 Delivery O2 Flow Rate FiO2 04/29/17 12:00 98.0 68 19 98/50 (66) 96 04/28/17 20:55 21 04/28/17 11:56 Room Air Labs Laboratory Tests Test 04/29/17 06:19 White Blood Count 3.9 Red Blood Count 3.30 Hemoglobin 9.9 Hematocrit 29.1 Mean Corpuscular Volume 88.3 Mean Corpuscular Hemoglobin 30.0 Mean Corpuscular Hemoglobin Concent 33.9 Red Cell Distribution Width 14.5 Platelet Count 135 Mean Platelet Volume 10.1 Neutrophils (%) (Auto) 61.9 Lymphocytes (%) (Auto) 28.0 Monocytes (%) (Auto) 8.9 Eosinophils (%) (Auto) 0.9 Basophils (%) (Auto) 0.3 Neutrophils # (Auto) 2.4 Lymphocytes # (Auto) 1.1 Monocytes # (Auto) 0.3 Eosinophils # (Auto) 0.0 Basophils # (Auto) 0.0 CBC Comment DIFF FINAL Differential Comment Blood Urea Nitrogen 4 Creatinine 0.64 Random Glucose 82 Total Protein 6.1 Albumin 2.4 Calcium Level 7.7 Alkaline Phosphatase 184 Aspartate Amino Transf (AST/SGOT) 75 Alanine Aminotransferase (ALT/SGPT) 73 Total Bilirubin 0.4 Sodium Level 139 Potassium Level 3.0 Chloride Level 105 Carbon Dioxide Level 26.7 Anion Gap 7 Estimat Glomerular Filtration Rate 107 Date/Time Source Procedure Growth Status 04/28/17 04:55 Nasal Washing Influenza Types A,B Antigen (PIO) - Final NEGATIVE FOR FLU A AND B ANTIGEN.... Complete Radiology Last 48 hours Impressions Chest X-Ray 04/28/17 0434 Signed Impressions: Service Date/Time: Friday, April 28, 2017 04:46 - CONCLUSION: No acute disease. Jerson Lambert Jr., MD Gall Bladder Ultrasound 04/28/17 0000 Signed Impressions: Service Date/Time: Friday, April 28, 2017 07:40 - CONCLUSION: 1. Moderately distended gallbladder containing sludge. Sonographic findings of gallbladder wall thickening, pericholecystic fluid and sonographic Nickerson's sign are consistent with acute cholecystitis. 2. Common bile duct is distended up to 9 mm although a definitive stone or mass is not demonstrated in the visualized portions. Choledocholithiasis or distal obstructing lesion not imaged on this ultrasound cannot be entirely excluded. Cole Cordoba MD Cardiovascular: Regular Lungs: Clear Abdomen: Other (RUQ tenderness ) Extremities: No edema A/P Assessment and Plan 31 year old female acute cholecystitis; choledocholithiasis -MRCP shows choledocholithiasis -Consult GI for ERCP -Clear liquids; NPO after MN -If stable respiratory dee will plan to do lap meggan on Thursday -Discussed with patient and she agrees with plan Attending Note - Dr. Clark Abdomen disulfurizer tender Plan as above The exam, history, and the medical decision-making described in the above note were completed with the assistance of the mid-level provider. I reviewed and agree with the findings presented. I attest that I had a [id number] encounter with the patient on the same day, and personally performed and documented my assessment and findings in the medical record. Sarah Haider/Personnel Quality Assurance Auditor PATRICK Apr 29, 2017 15:35 Edgardo Clark MD May 01, 2017 14:50
[2017-04-29] MEDS: RESP: ALBUTEROL 2.5 MG/IPRATROPIUM 0.5 MG NEB (SCH) INH ×2 (16:06→19:48)
[2017-04-29] MEDS: FLUoxetine HCL 20 MG CAP PO SCH (21:20)
[2017-04-30] VITALS (8 sets, daily range): BP systolic 110–145; BP diastolic 52–83; PULSE 62–95; RESP 18–20; TEMP 97.4–98.5; O2SAT 94–99
[2017-04-30] MEDS: ONDANSETRON HCL 4 MG/2 ML VIAL IVP PRN ×2 (00:35→20:11)
[2017-04-30] MEDS: MORPHINE SULFATE 2 MG/ML INJ IV PUSH PRN ×6 (00:36→20:11)
[2017-04-30] MEDS: TRIAMCINOLONE ACETONIDE 0.1% CREAM 15 GM TOPICAL SCH ×5 (00:42→20:30)
[2017-04-30] MEDS: cefTRIAXone INJ 1,000 MG in SODIUM CHLORIDE 0.9% INJ 100 ML IV SCH (04:15)
[2017-04-30] MEDS: SODIUM CHLOR 0.9% 1000 ML INJ 1,000 ML IV SCH ×2 (04:16→14:00)
[2017-04-30] MEDS: RESP: ALBUTEROL 2.5 MG/IPRATROPIUM 0.5 MG NEB (SCH) INH ×4 (05:11→19:41)
[2017-04-30 07:32] LABS: AUTOMATED NEUTROPHIL # 1.7 TH/MM3 (1.8-7.7); BASOPHIL % 0.5 % (0.0-2.0); EOSINOPHIL # 0.1 TH/MM3 (0-0.4); EOSINOPHIL % 4.1 % (0.0-4.0); HEMATOCRIT 28.5 % (35.0-46.0); HEMOGLOBIN 9.6 GM/DL (11.6-15.3); LYMPH % 38.7 % (9.0-44.0); LYMPHOCYTE # 1.4 TH/MM3 (1.0-4.8); MEAN CELL VOLUME 89.1 FL (80.0-100.0); MEAN CORPUSCULAR HEMOGLOBIN 30.2 PG (27.0-34.0); MEAN CORPUSCULAR HGB CONC 33.8 % (32.0-36.0); MEAN PLATELET VOLUME 10.2 FL (7.0-11.0); MONO % 7.2 % (0.0-8.0); MONOCYTE # 0.3 TH/MM3 (0-0.9); NEUT % 49.5 % (16.0-70.0); PLATELET COUNT 139 TH/MM3 (150-450); RED BLOOD COUNT 3.19 MIL/MM3 (4.00-5.30); RED CELL DISTRIBUTION WIDTH 14.9 % (11.6-17.2); WHITE BLOOD COUNT 3.5 TH/MM3 (4.0-11.0)
[2017-04-30] MEDS: SODIUM CHLORIDE 0.9% FLUSH 10 ML FLUSH IV FLUSH SCH ×2 (07:34→20:28)
[2017-04-30] MEDS: DOCUSATE SODIUM 50 MG/SENNA 8.6 MG TAB PO SCH ×2 (07:34→20:12)
[2017-04-30] MEDS: FLUoxetine HCL 20 MG CAP PO SCH ×2 (07:37→20:26)
[2017-04-30] MEDS: TIOTROPIUM BROMIDE 18 MCG INH INH SCH (07:37)
[2017-04-30] MEDS: BUDESONIDE-FORMOTEROL 160/4.5 MCG INHALER INH SCH ×2 (07:37→20:28)
[2017-04-30 07:54] LABS: ALBUMIN 2.4 GM/DL (3.4-5.0); ALT (GPT) 67 U/L (10-53); AST (GOT) 50 U/L (15-37); BICARBONATE 26.4 MEQ/L (21.0-32.0); BLOOD UREA NITROGEN 2 MG/DL (7-18); CHLORIDE 109 MEQ/L (98-107); CREATININE 0.57 MG/DL (0.50-1.00); GLOMERULAR FILTRATION RATE 122 ML/MIN (>89); GLUCOSE,RANDOM 78 MG/DL (74-106); SODIUM (NA) 142 MEQ/L (136-145)
[2017-04-30 07:57] LABS: ALKALINE PHOSPHATASE 171 U/L (45-117); TOTAL BILIRUBIN ADULT 0.2 MG/DL (0.2-1.0); TOTAL PROTEIN 6.1 GM/DL (6.4-8.2)
--- NOTE | 2017-04-30 10:42 | GIPROC ---
[facility] [address] [facility]. [facility], [address] ERCP PROCEDURE REPORT EXAM DATE: 04/30/2017 PATIENT NAME: Ara Clifford MR #: [id number] BIRTHDATE: 1985 ATTENDING: Carmelo Hendricks MD ORDER #: [id number] BAND INSTRUMENT MAKER: Tony Weiss and Demetria Fofana STATUS: inpatient INDICATIONS: The patient is a 31 yr old female here for an ERCP due to established bile duct stone(s) PROCEDURE PERFORMED: ERCP with sphincterotomy/papillotomy ERCP with removal of calculus/calculi MEDICATIONS: None and Per Anesthesia. CONSENT: The patient understands the risks and benefits of the procedure and understands that these risks include, but are not limited to: sedation, allergic reaction, infection, perforation and/or bleeding. Alternative means of evaluation and treatment include, among others: physical exam, x-rays, and/or surgical intervention. The patient elects to proceed with this endoscopic procedure. medical equipment was checked for proper function. Hand hygiene and appropriate measures for infection prevention was taken. After the risks, benefits and alternatives of the procedure were thoroughly explained, Informed was verified, confirmed and timeout was successfully executed by the treatment team. With the patient in left semi-prone position, medications were administered intravenously.The Pentax [id number] was passed from the mouth into the esophagus and further advanced from the esophagus into the stomach. From stomach scope was directed to the second portion of the duodenum. Major papilla was aligned with the duodenoscope. The scope position was confirmed fluoroscopically. Rest of the findings/therapeutics are given below. The scope was then completely withdrawn from the patient and the procedure completed. The pulse, BP, and O2 saturation were monitored and documented by the physician and the nursing staff throughout the entire procedure. The patient was cared for as planned according to standard protocol. The patient was then discharged to recovery in stable condition and with appropriate post procedure care. The ampulla was located the second portion of the duodenum. The ampulla appeared normal. There was a dilation of the common hepatic duct and CBD. A single filling defect was seen in the distal common bile duct. With guidewire in the bile duct, a biliary sphincterotomy was performed using the sphincterotome. Using a stone extraction balloon the bile duct was swept twice. Multiple stone fragments were removed from the bile duct successfully. ADVERSE EVENT: There were no complications. IMPRESSIONS: Normal appearing ampulla Dilated CBD with small distal CBD filling defect Sphincterotomy followed by ducatl sweep. Debris removed RECOMMENDATIONS: Surgery REPEAT EXAM: As needed Carmelo Hendricks MD eSigned: Carmelo Hendricks MD 04/30/2017 10:42 AM cc:
[2017-04-30] MEDS ORDERED: *morphine SULFATE 4 MG/ML PERIprocedure ONLY ONE (10:54)
[2017-04-30] MEDS ORDERED: *ONDANSETRON 4 MG VIAL PERIprocedural Use ONLY ONE (10:55)
[2017-04-30] MEDS ORDERED: *morphine SULFATE 8 MG/ML PERIprocedure ONLY ONE (11:02)
[2017-04-30] MEDS ORDERED: *RESP: ALBUTEROL 2.5 MG/3 ML NEB (PRN) PERIprocedural Use ONLY NEB ONE (11:16)
[2017-04-30] MEDS ORDERED: *PROMETHAZINE 25 MG/ML VIAL PERIprocedural use ONLY ONE (11:35)
[2017-04-30] MEDS ORDERED: DO NOT ADM ANY ANTICOAGULANT DRUGS PRN (11:45)
[2017-04-30] MEDS ORDERED: ONDANSETRON HCL 4 MG/2 ML VIAL IV ONE (12:00)
[2017-04-30] MEDS ORDERED: LIDOCAINE HCL 1% PF 5 ML SYRINGE OTHER ONE (12:00)
[2017-04-30] MEDS ORDERED: PROPOFOL 200 MG/20 ML AMP IV ONE (12:00)
[2017-04-30] MEDS ORDERED: SUCCINYLCHOLINE CHLORIDE 100 MG/5 ML SYRINGE IV PUSH ONE (12:00)
--- NOTE | 2017-04-30 12:02 | RADRPT ---
EXAM DATE/TIME: 04/30/2017 10:25 [facility] COMPARISON: CHEST SINGLE AP, April 28, 2017, 4:46. INDICATIONS : Obstruction, ERCP. FLUORO TIME: .20 minutes IMAGE COUNT: 4 CONTRAST: Instilled by Ordering Physician MEDICAL HISTORY : None. SURGICAL HISTORY : None. ENCOUNTER: Initial ACUITY: 1 day PAIN SCORE: Non-responsive. LOCATION: Abdomen FINDINGS: An ERCP was performed by the ordering physician. The images demonstrate the common bile duct to be normal in caliber. There is subsequent images demon strating balloon sweeping of the duct with apparent stone removal. The pancreatic duct is not visuali zed. CONCLUSION: ERCP as above. Rene Arthur MD on April 30, 2017 at 11:59 Board Certified Radiologist. This report was verified electronically.
[2017-04-30] MEDS: RESP: ALBUTEROL 2.5 MG/3 ML NEB (PRN) INH (13:42)
--- NOTE | 2017-04-30 13:50 | HHI.FPPN ---
Subjective Remarks Patient was seen after ERCP this morning and was complaining of diffuse abdominal and chest pain. Also stating pain radiates down her left arm. Vital signs were stable at that time (Chi Magaña MD R1) Objective Vitals Vital Signs Date Time Temp Pulse Resp B/P (MAP) Pulse Ox O2 Delivery O2 Flow Rate FiO2 04/30/17 12:55 98.5 76 18 136/67 (90) 95 04/30/17 12:10 97.4 95 20 145/83 (103) 94 04/30/17 11:40 67 14 142/82 (102) 95 Nasal Cannula 3 04/30/17 11:30 67 14 141/67 (91) 95 Nasal Cannula 3 04/30/17 11:15 62 14 130/71 (90) 97 Nasal Cannula 3 04/30/17 11:00 68 14 129/69 (89) 93 Nasal Cannula 3 04/30/17 10:49 98.9 72 14 122/91 (101) 93 Simple Mask 8 04/30/17 08:00 98.5 86 18 118/57 (77) 95 04/30/17 00:00 98.4 62 18 110/52 (71) 99 04/29/17 20:00 98.2 66 18 105/59 (74) 91 04/29/17 16:00 99.1 65 18 100/55 (70) 99 I/O 04/29/17 04/29/17 04/29/17 04/30/17 04/30/17 04/30/17 07:00 15:00 23:00 07:00 15:00 23:00 Intake Total 1000 ml 590 ml 0 ml 200 ml Output Total 1675 ml Balance 1000 ml -1085 ml 0 ml 200 ml Intake Oral 590 ml 0 ml IV Total 1000 ml Other 200 ml Output Urine Total 1675 ml # Voids 3 1 # Bowel Movements 0 0 0 (Chi Magaña MD R1) Result Diagram: 04/30/17 0704 04/30/17 0704 Objective Remarks GENERAL: Patient is a female laying in bed that appears to be in pain. Awake and alert and responding to questions appropriately. SKIN: Warm and dry. Psoriatic plaques noted on the elbows, not draining HEAD: Atraumatic. Normocephalic. EYES: Pupils equal and round. No scleral icterus. No injection or drainage. ENT: No nasal bleeding or discharge. Mucous membranes pink and moist. No tonsillar erythema or exudate noted. Dry cough noted. NECK: Trachea midline. No JVD. No lymphadenopathy noted. CARDIOVASCULAR: Regular rate and rhythm. No murmurs, gallops, or rubs. RESPIRATORY: No accessory muscle use. Clear to consultation bilaterally. Breath sounds equal bilaterally. GASTROINTESTINAL: Abdomen is diffusely tender to palpation with no guarding. No rebound tenderness appreciated. MUSCULOSKELETAL: Extremities without clubbing, cyanosis, or edema. No obvious deformities. NEUROLOGICAL: Awake and alert. No obvious cranial nerve deficits. Motor grossly within normal limits. Normal strength normal speech. PSYCHIATRIC: Appropriate mood and affect; insight and judgment normal. (Chi Magaña MD R1) A/P Assessment and Plan 31-year-old female with acute cholecystitis. Past medical history notable for COPD, JAISON, depression. Admitted to inpatient due to diagnosis of acute cholecystitis, will manage with antibiotics and control pain with IV and oral medications. Status post MRCP on 04/29 and ERCP on 04/30. Patient complaining of diffuse abdominal and chest pain after the procedure on 04/30. Discharge Planning Cholecystectomy tentatively planned for 05/01. Anticipate 1-3 day post operative monitoring with discharge to home. General surgery consulted, appreciate management (Chi Magaña MD R1) Attending Attestation Pt. seen at approximately 1445 today, after having discussed the case with Dr. Magaña. Pt. was having chest discomfort earlier this afternoon after completion of her ERCP. She is no longer having chest discomfort, but just "don 't feel that good". She requests that we check her temperature, which was 98.4. All vitals stable at that time. EKG was normal, lab values pending. I agree with the findings and the plan as above. Anticipate laparoscopic cholecystectomy soon. (Marai M Lafleur MD) Problem List: (1) Acute cholecystitis ICD Codes: K81.0 - Acute cholecystitis Status: Acute Plan: Symptoms have persisted for weeks. No leukocytosis. Ultrasound does show evidence of cholecystitis with gallbladder wall thickening, large gallbladder and enlarged bile duct, biliary sludge. MRCP 04/29 showing dilated common bile duct 11 mm suggestive of stone. Patient is not a high surgical risk , anticipate elective cholecystectomy to be performed during this hospitalization (tentatively planned for Monday 05/01). General surgery consult, appreciate recommendations and management Mild transaminitis noted today, likely related to acute illness, did get MRCP today, will monitor closely Gastroenterology consulted on 04/29, ERCP performed on 04/30 with balloon sweeping of the duct and stone removal Patient complaining of diffuse abdominal pain, chest pain after the ERCP procedure. Chest pain workup as below. CBC, CMP pending and GI was made aware per nursing Pain: * Tylenol 650mg PO pain 1-2 * Morphine IV 2 mg every 3 hours pain 3-5 unable to tolerate PO * Morphine IV 4 mg every 3 hours pain 6-10 unable to tolerate PO * Will reassess breakthrough pain to ensure no evidence of acute abdomen * Bowel regimen to include scheduled Sylvie-Colace twice daily Infection: * Patient does not have fever now but did have temperatures at home and max fever of 100.4F in ED * Levaquin 500 mg IV 1 in ED 04/29 * Rocephin 1 g IV daily, start date 04/29 Support: * NPO at midnight prior to surgery * Zofran 4 mg IV as needed for nausea (2) Chest pain ICD Codes: R07.9 - Chest pain, unspecified Plan: Patient complaining of substernal chest pain that radiates to the left arm after the ERCP on 04/30 Stat EKG, troponins, CBC, CMP, chest x-ray ordered EKG reviewed at bedside and appears normal Vital signs within normal limits Likely secondary to postop pain and anxiety Will follow up labs to rule out ACS (3) Chronic obstructive lung disease Status: Chronic Plan: Chronic JAISON, COPD, asthma diagnoses. Med rec from outpatient setting include Spiriva, as needed albuterol. Not currently on inhaled corticosteroid. * Continue Spiriva starting 04/29 * Symbicort 160 mcg/formoterol 4.5 mcg at 2puffs twice daily * Duonebs every 6 hr scheduled, with Albuterol every 2 hr as needed for wheezing , SOB * Continue incentive spirometry * Continue Tessalon Perrles for cough PRN * CXR on admission normal (4) Depression ICD Codes: F32.9 - Major depressive disorder, single episode, unspecified Status: Chronic Plan: Moderate persistent depression with current Prozac 40 mg daily use. No SI/HI will continue home dose. (5) Tobacco abuse ICD Codes: Z72.0 - Tobacco use Status: Chronic Plan: Patient states she has not had a cigarette in a while given her illness. Does not appear to require a nicotine patch at this time but will order as needed. Counseled on smoking cessation (6) Psoriasis Status: Chronic Plan: Chronic, stable, patient uses topical [id number] but states these did not work * Will give medium potency topical steroid triamcinolone acetonide cream 0.1% to be used twice daily (7) Anemia ICD Codes: D64.9 - Anemia, unspecified Status: Acute Plan: Mild. Suspect anemia is dilutional. Trend CBC and monitor closely. (8) Hypokalemia ICD Codes: E87.6 - Hypokalemia Status: Acute Plan: Mild hypokalemia, likely related to acute illness affecting nutrition. Will replete as needed and monitor (9) Fluids/Electrolytes/Nutrition/Prophylaxis Status: Acute Plan: Fluids: NS 100 mL per hour Electrolytes: monitor and replete as needed Nutrition: Nothing by mouth after ERCP procedure due to abdominal pain. Will need to be nothing by mouth at midnight if lap cholecystectomy still planned for tomorrow DVT Prophylaxis: Early ambulation. If patient has reduced ambulation will initiate Lovenox. Will order bilateral SCDs while in bed. GI Prophylaxis: None indicated, may consider PPI if symptoms suggest the need for this PRN anti-HTN: Vasotec 1.35mg IV PRN for SBP > 180/ and/or DBP > 100 (Chi Magaña MD R1) Problem Qualifiers (1) Depression: Qualified Codes: F33.1 - Major depressive disorder, recurrent, moderate Chi Magaña MD R1 Apr 30, 2017 13:50 Maria M Lafleur MD Apr 30, 2017 15:33
--- NOTE | 2017-04-30 14:19 | HHI.GIFU ---
Subjective Remarks Pt in bed, c/o severe abd pain. (Nettie Mclaughlin) Objective Vitals I&O Vital Signs Date Time Temp Pulse Resp B/P (MAP) Pulse Ox O2 Delivery O2 Flow Rate FiO2 04/30/17 13:44 96 Nasal Cannula 2.00 04/30/17 12:55 98.5 76 18 136/67 (90) 95 04/30/17 12:10 97.4 95 20 145/83 (103) 94 04/30/17 11:40 67 14 142/82 (102) 95 Nasal Cannula 3 04/30/17 11:30 67 14 141/67 (91) 95 Nasal Cannula 3 04/30/17 11:15 62 14 130/71 (90) 97 Nasal Cannula 3 04/30/17 11:00 68 14 129/69 (89) 93 Nasal Cannula 3 04/30/17 10:49 98.9 72 14 122/91 (101) 93 Simple Mask 8 04/30/17 08:00 98.5 86 18 118/57 (77) 95 04/30/17 00:00 98.4 62 18 110/52 (71) 99 04/29/17 20:00 98.2 66 18 105/59 (74) 91 04/29/17 16:00 99.1 65 18 100/55 (70) 99 I/O 04/29/17 04/29/17 04/29/17 04/30/17 04/30/17 04/30/17 07:00 15:00 23:00 07:00 15:00 23:00 Intake Total 1000 ml 590 ml 0 ml 200 ml Output Total 1675 ml Balance 1000 ml -1085 ml 0 ml 200 ml Intake Oral 590 ml 0 ml IV Total 1000 ml Other 200 ml Output Urine Total 1675 ml # Voids 3 1 # Bowel Movements 0 0 0 Laboratory Laboratory Tests Test 04/30/17 07:04 White Blood Count 3.5 Red Blood Count 3.19 Hemoglobin 9.6 Hematocrit 28.5 Mean Corpuscular Volume 89.1 Mean Corpuscular Hemoglobin 30.2 Mean Corpuscular Hemoglobin Concent 33.8 Red Cell Distribution Width 14.9 Platelet Count 139 Mean Platelet Volume 10.2 Neutrophils (%) (Auto) 49.5 Lymphocytes (%) (Auto) 38.7 Monocytes (%) (Auto) 7.2 Eosinophils (%) (Auto) 4.1 Basophils (%) (Auto) 0.5 Neutrophils # (Auto) 1.7 Lymphocytes # (Auto) 1.4 Monocytes # (Auto) 0.3 Eosinophils # (Auto) 0.1 Basophils # (Auto) 0.0 CBC Comment DIFF FINAL Differential Comment Blood Urea Nitrogen 2 Creatinine 0.57 Random Glucose 78 Total Protein 6.1 Albumin 2.4 Calcium Level 8.0 Alkaline Phosphatase 171 Aspartate Amino Transf (AST/SGOT) 50 Alanine Aminotransferase (ALT/SGPT) 67 Total Bilirubin 0.2 Sodium Level 142 Potassium Level 3.6 Chloride Level 109 Carbon Dioxide Level 26.4 Anion Gap 7 Estimat Glomerular Filtration Rate 122 Date/Time Source Procedure Growth Status 04/28/17 04:55 Nasal Washing Influenza Types A,B Antigen (PIO) - Final NEGATIVE FOR FLU A AND B ANTIGEN.... Complete Imaging Last Impressions GI Procedure 04/30/17 0000 Signed Impressions: Service Date/Time: April 10:25 - CONCLUSION: ERCP as above. Rene Arthur MD Cholangiopancreatography MRI 04/29/17 0000 Signed Impressions: Service Date/Time: Saturday, April 29, 2017 08:26 - CONCLUSION: Gall bladder wall thickening with pericholecystic inflammatory changes most characteristic of acute cholecystitis. There is a tiny filling defect in the distal common duct most characteristic of choledocholithiasis. Common bile duct dilated to 11 mm. August Thompson MD Chest X-Ray 04/28/17 0434 Signed Impressions: Service Date/Time: Friday, April 28, 2017 04:46 - CONCLUSION: No acute disease. Jerson Lambert Jr., MD Gall Bladder Ultrasound 04/28/17 0000 Signed Impressions: Service Date/Time: Friday, April 28, 2017 07:40 - CONCLUSION: 1. Moderately distended gallbladder containing sludge. Sonographic findings of gallbladder wall thickening, pericholecystic fluid and sonographic Nickerson's sign are consistent with acute cholecystitis. 2. Common bile duct is distended up to 9 mm although a definitive stone or mass is not demonstrated in the visualized portions. Choledocholithiasis or distal obstructing lesion not imaged on this ultrasound cannot be entirely excluded. Cole Cordoba MD Physical Exam HEENT: PERRL; normocephalic; atraumatic; no jaundice. CHEST: CTA CARDIAC: RRR ABDOMEN: Soft, obese, TTP diffusely, BS + EXTREMITIES: No clubbing, cyanosis, or edema. SKIN: Normal; no rash; no jaundice. [employer] SYSTEM: No focal deficits; alert and oriented times three. (Nettie Mclaughlin) Assessment and Plan Assessment: (1) Acute cholecystitis ICD Codes: K81.0 - Acute cholecystitis Status: Acute (2) Anemia ICD Codes: D64.9 - Anemia, unspecified Status: Acute (3) Abdominal pain ICD Codes: R10.9 - Abdominal pain Status: Acute (4) BMI 36.0-36.9,adult ICD Codes: Z68.36 - Body mass index (BMI) 36.0-36.9, adult Plan Patient presented with abdominal pain 3 weeks, gallbladder ultrasound done on 04/28/17 shows moderate distended gallbladder containing sludge, wall thickening , Gt cholecystic fluid. Common bile duct is distended up to 9 mm although a definite stone or mass is not demonstrated in the visualized portions cholelithiasis or distal nonobstructing lesion is not imaged but cannot be excluded. MRCP done on 04/29/17 shows gallbladder wall thickening with Gt cholecystic inflammatory changes most characteristic of acute cholelithiasis. There is a tiny filling defect in the common bile duct most characteristic cholelithiasis common bile duct dilated to 11 mm., Lab data shows LFTs 75 AST, 73 ALT alkaline phosphatase 184, potassium 3, WBC count 3.9. Anemia unspecified, currently 9.9 without obvious bleeding Low-grade fever within the past 24 hours 100. Nausea currently being managed with Zofran, no further vomiting Epigastric right upper quadrant abdominal tenderness continues Constipation no BM 4 days this appears to be acute on chronic problem, GS consult noted. According to note plan for surgery or Thursday04/30/17 s/p ERCP yesterday, found CBD filling defect, sphincterotomy and ductal sweep done. plan was for lap meggan tomorrow. pt abd pain today. mild decrease LFTs from yesterday. Had mult BM after mg citrate yesterday Plan NPO rck lipase amylase now cmp in am supportive care patient was seen by myself and Dr. Hendricks, this note was written on his behalf (Nettie Mclaughlin) Physician Comments Seen and examined with Nettie, will follow up with you. (Carmelo Hendricks MD) Nettie Mclaughlin Apr 30, 2017 14:19 Carmelo Hendricks MD Apr 30, 2017 14:34
--- NOTE | 2017-04-30 14:32 | RADRPT ---
EXAM DATE/TIME: 04/30/2017 13:15 [facility] COMPARISON: GI LAB ERCP, April 30, 2017, 10:25. INDICATIONS : Chest pain. MEDICAL HISTORY : None. SURGICAL HISTORY : None. ENCOUNTER: Initial ACUITY: 1 day PAIN SCORE: 10/10 LOCATION: Bilateral chest FINDINGS: The heart is normal in size. The lungs are clear. There is no pleural effusion. No pneumothorax is no luc. The osseous structures are grossly intact. CONCLUSION: 1. No acute cardiopulmonary findings. Rene Arthur MD on April 30, 2017 at 14:29 Board Certified Radiologist. This report was verified electronically.
[2017-04-30 15:29] LABS: AUTOMATED NEUTROPHIL # 4.1 TH/MM3 (1.8-7.7); BASOPHIL % 0.3 % (0.0-2.0); EOSINOPHIL % 0.7 % (0.0-4.0); HEMATOCRIT 31.8 % (35.0-46.0); HEMOGLOBIN 10.6 GM/DL (11.6-15.3); LYMPH % 10.6 % (9.0-44.0); LYMPHOCYTE # 0.5 TH/MM3 (1.0-4.8); MEAN CELL VOLUME 88.9 FL (80.0-100.0); MEAN CORPUSCULAR HEMOGLOBIN 29.7 PG (27.0-34.0); MEAN CORPUSCULAR HGB CONC 33.4 % (32.0-36.0); MEAN PLATELET VOLUME 9.8 FL (7.0-11.0); MONO % 5.2 % (0.0-8.0); MONOCYTE # 0.3 TH/MM3 (0-0.9); NEUT % 83.2 % (16.0-70.0); PLATELET COUNT 163 TH/MM3 (150-450); RED BLOOD COUNT 3.58 MIL/MM3 (4.00-5.30); RED CELL DISTRIBUTION WIDTH 14.8 % (11.6-17.2)
[2017-04-30 15:31] LABS: ALBUMIN 2.7 GM/DL (3.4-5.0); ALT (GPT) 73 U/L (10-53); AST (GOT) 57 U/L (15-37); BICARBONATE 27.9 MEQ/L (21.0-32.0); BLOOD UREA NITROGEN 3 MG/DL (7-18); CALCIUM 8.2 MG/DL (8.5-10.1); CHLORIDE 105 MEQ/L (98-107); CREATININE 0.58 MG/DL (0.50-1.00); GLOMERULAR FILTRATION RATE 120 ML/MIN (>89); GLUCOSE,RANDOM 98 MG/DL (74-106); SODIUM (NA) 140 MEQ/L (136-145)
[2017-04-30 15:35] LABS: ALKALINE PHOSPHATASE 195 U/L (45-117); TOTAL BILIRUBIN ADULT 0.3 MG/DL (0.2-1.0); TOTAL PROTEIN 6.6 GM/DL (6.4-8.2); TROPONIN I LESS THAN 0.02 NG/ML (0.02-0.05)
--- NOTE | 2017-04-30 19:14 | HHI.PR ---
cc: Edgardo Clark MD Subjective Subjective Notes Resting in bed Brother at bedside Objective Vitals/I&O Vital Signs Date Time Temp Pulse Resp B/P (MAP) Pulse Ox O2 Delivery O2 Flow Rate FiO2 04/30/17 16:00 98.4 89 18 125/78 (94) 96 04/30/17 13:44 Nasal Cannula 2.00 04/28/17 20:55 21 Labs Laboratory Tests Test 04/30/17 07:04 04/30/17 15:02 White Blood Count 3.5 5.0 Red Blood Count 3.19 3.58 Hemoglobin 9.6 10.6 Hematocrit 28.5 31.8 Mean Corpuscular Volume 89.1 88.9 Mean Corpuscular Hemoglobin 30.2 29.7 Mean Corpuscular Hemoglobin Concent 33.8 33.4 Red Cell Distribution Width 14.9 14.8 Platelet Count 139 163 Mean Platelet Volume 10.2 9.8 Neutrophils (%) (Auto) 49.5 83.2 Lymphocytes (%) (Auto) 38.7 10.6 Monocytes (%) (Auto) 7.2 5.2 Eosinophils (%) (Auto) 4.1 0.7 Basophils (%) (Auto) 0.5 0.3 Neutrophils # (Auto) 1.7 4.1 Lymphocytes # (Auto) 1.4 0.5 Monocytes # (Auto) 0.3 0.3 Eosinophils # (Auto) 0.1 0.0 Basophils # (Auto) 0.0 0.0 CBC Comment DIFF FINAL DIFF FINAL Differential Comment Blood Urea Nitrogen 2 3 Creatinine 0.57 0.58 Random Glucose 78 98 Total Protein 6.1 6.6 Albumin 2.4 2.7 Calcium Level 8.0 8.2 Alkaline Phosphatase 171 195 Aspartate Amino Transf (AST/SGOT) 50 57 Alanine Aminotransferase (ALT/SGPT) 67 73 Total Bilirubin 0.2 0.3 Sodium Level 142 140 Potassium Level 3.6 3.6 Chloride Level 109 105 Carbon Dioxide Level 26.4 27.9 Anion Gap 7 7 Estimat Glomerular Filtration Rate 122 120 Amylase Level 19 Lipase 36 Troponin I LESS THAN 0.02 Date/Time Source Procedure Growth Status 04/28/17 04:55 Nasal Washing Influenza Types A,B Antigen (PIO) - Final NEGATIVE FOR FLU A AND B ANTIGEN.... Complete Radiology Last 48 hours Impressions Chest X-Ray 04/28/17 0434 Signed Impressions: Service Date/Time: Friday, April 28, 2017 04:46 - CONCLUSION: No acute disease. Jerson Lambert Jr., MD Gall Bladder Ultrasound 04/28/17 0000 Signed Impressions: Service Date/Time: Friday, April 28, 2017 07:40 - CONCLUSION: 1. Moderately distended gallbladder containing sludge. Sonographic findings of gallbladder wall thickening, pericholecystic fluid and sonographic Nickerson's sign are consistent with acute cholecystitis. 2. Common bile duct is distended up to 9 mm although a definitive stone or mass is not demonstrated in the visualized portions. Choledocholithiasis or distal obstructing lesion not imaged on this ultrasound cannot be entirely excluded. Cole Cordoba MD Cardiovascular: Regular Lungs: Clear Abdomen: Other (RUQ tenderness ) Extremities: No edema A/P Assessment and Plan 31 year old female acute cholecystitis; choledocholithiasis -MRCP shows choledocholithiasis -ERCP today -Plan for lap meggan tomorrow -NPO after MN -Consent on chart -Discussed with patient and she agrees with plan Attending Note - Dr. Clark Somewhat painful after ERCP today; stone extracted during ERCP Stable For lap cholecystectomy 05/01; GAR discussed with pt.; she vocalizes understanding and agrees to proceed. The exam, history, and the medical decision-making described in the above note were completed with the assistance of the mid-level provider. I reviewed and agree with the findings presented. I attest that I had a [id number] encounter with the patient on the same day, and personally performed and documented my assessment and findings in the medical record. Sarah HaiderP/Rn Birthing [employer] SK[employer]ED OPERATOR Apr 30, 2017 19:14 Edgardo Clark MD May 01, 2017 14:49
[2017-04-30] MEDS ORDERED: METOPROLOL TARTRATE 25 MG TAB PO PRN (19:30)
[2017-04-30] MEDS ORDERED: CHLORHEXIDINE GLUCONATE 2 % 1 PACK (2 CLOTHS) TOPICAL PRN (19:30)
[2017-04-30] MEDS ORDERED: SODIUM CHLORID 0.9% 500 ML IV PRN (19:30)
[2017-04-30] MEDS ORDERED: POVIDONE IODINE 5% (ANTISEPSIS KIT) 4 APPLICATIONS EACH NARE PRN (19:30)
[2017-04-30] MEDS ORDERED: LACTATED RINGER'S 1000 ML IV PRN (19:30)
[2017-04-30] MEDS: BENZONATATE 100 MG CAP PO PRN (20:12)
[2017-05-01] VITALS (8 sets, daily range): BP systolic 102–133; BP diastolic 60–77; PULSE 65–76; RESP 18; TEMP 97.2–98.6; O2SAT 93–98
[2017-05-01] MEDS: MORPHINE SULFATE 2 MG/ML INJ IV PUSH PRN ×4 (00:10→09:19)
[2017-05-01] MEDS: SODIUM CHLOR 0.9% 1000 ML INJ 1,000 ML IV SCH ×2 (00:13→09:19)
[2017-05-01] MEDS: ONDANSETRON HCL 4 MG/2 ML VIAL IVP PRN ×3 (03:11→18:47)
[2017-05-01] MEDS: cefTRIAXone INJ 1,000 MG in SODIUM CHLORIDE 0.9% INJ 100 ML IV SCH (03:12)
[2017-05-01] MEDS: BENZONATATE 100 MG CAP PO PRN ×2 (03:16→22:19)
[2017-05-01] MEDS: TRIAMCINOLONE ACETONIDE 0.1% CREAM 15 GM TOPICAL SCH ×3 (03:16→16:59)
[2017-05-01] MEDS: RESP: ALBUTEROL 2.5 MG/IPRATROPIUM 0.5 MG NEB (SCH) INH ×4 (03:36→19:38)
[2017-05-01 06:12] LABS: AUTOMATED NEUTROPHIL # 1.8 TH/MM3 (1.8-7.7); BASOPHIL % 0.2 % (0.0-2.0); EOSINOPHIL # 0.1 TH/MM3 (0-0.4); EOSINOPHIL % 3.3 % (0.0-4.0); HEMATOCRIT 28.8 % (35.0-46.0); HEMOGLOBIN 9.7 GM/DL (11.6-15.3); LYMPHOCYTE # 1.1 TH/MM3 (1.0-4.8); MEAN CORPUSCULAR HEMOGLOBIN 29.9 PG (27.0-34.0); MEAN CORPUSCULAR HGB CONC 33.6 % (32.0-36.0); MEAN PLATELET VOLUME 9.3 FL (7.0-11.0); MONO % 7.5 % (0.0-8.0); MONOCYTE # 0.2 TH/MM3 (0-0.9); PLATELET COUNT 149 TH/MM3 (150-450); RED BLOOD COUNT 3.24 MIL/MM3 (4.00-5.30); RED CELL DISTRIBUTION WIDTH 14.8 % (11.6-17.2); WHITE BLOOD COUNT 3.3 TH/MM3 (4.0-11.0)
[2017-05-01 06:42] LABS: ALBUMIN 2.4 GM/DL (3.4-5.0); AST (GOT) 33 U/L (15-37); BICARBONATE 25.9 MEQ/L (21.0-32.0); BLOOD UREA NITROGEN 3 MG/DL (7-18); CALCIUM 8.2 MG/DL (8.5-10.1); CHLORIDE 106 MEQ/L (98-107); CREATININE 0.51 MG/DL (0.50-1.00); GLOMERULAR FILTRATION RATE 139 ML/MIN (>89); GLUCOSE,RANDOM 74 MG/DL (74-106); SODIUM (NA) 140 MEQ/L (136-145)
[2017-05-01 06:47] LABS: ALKALINE PHOSPHATASE 176 U/L (45-117); ALT (GPT) 51 U/L (10-53); TOTAL BILIRUBIN ADULT 0.3 MG/DL (0.2-1.0); TOTAL PROTEIN 6.1 GM/DL (6.4-8.2)
[2017-05-01] MEDS: FLUoxetine HCL 20 MG CAP PO SCH (07:14)
[2017-05-01] MEDS: DOCUSATE SODIUM 50 MG/SENNA 8.6 MG TAB PO SCH ×2 (08:03→22:16)
[2017-05-01] MEDS: SODIUM CHLORIDE 0.9% FLUSH 10 ML FLUSH IV FLUSH SCH ×2 (08:04→21:00)
[2017-05-01] MEDS: BUDESONIDE-FORMOTEROL 160/4.5 MCG INHALER INH SCH ×2 (08:04→22:17)
[2017-05-01] MEDS: TIOTROPIUM BROMIDE 18 MCG INH INH SCH (08:04)
--- NOTE | 2017-05-01 09:15 | HHI.FPPN ---
Subjective Remarks Patient was seen and examined this morning. She complains of continued abdominal pain, all over. No fevers or chills. Had chest pain and shortness of breath after ERCP yesterday which work-up showed was not cardiac related and no evidence of pancreatitis or acute abdomen. Patient feels better than she did then. Cough nagging, got up mucus plus this morning, using IS. Has been NPO since yesterday, OR planned for early afternoon. Last BM 04/29 per patient, does not want suppositories. (Mirna Smith MD) Objective Vitals Vital Signs Date Time Temp Pulse Resp B/P (MAP) Pulse Ox O2 Delivery O2 Flow Rate FiO2 05/01/17 08:45 93 05/01/17 04:00 97.5 76 18 107/60 (76) 96 05/01/17 00:39 97.2 69 18 121/65 (83) 98 04/30/17 20:00 98.0 63 18 119/60 (79) 96 04/30/17 19:43 96 Nasal Cannula 2.00 04/30/17 16:00 98.4 89 18 125/78 (94) 96 04/30/17 13:44 96 Nasal Cannula 2.00 04/30/17 12:55 98.5 76 18 136/67 (90) 95 04/30/17 12:10 97.4 95 20 145/83 (103) 94 04/30/17 11:40 67 14 142/82 (102) 95 Nasal Cannula 3 04/30/17 11:30 67 14 141/67 (91) 95 Nasal Cannula 3 04/30/17 11:15 62 14 130/71 (90) 97 Nasal Cannula 3 04/30/17 11:00 68 14 129/69 (89) 93 Nasal Cannula 3 04/30/17 10:49 98.9 72 14 122/91 (101) 93 Simple Mask 8 I/O 04/30/17 04/30/17 04/30/17 05/01/17 05/01/17 05/01/17 07:00 15:00 23:00 07:00 15:00 23:00 Intake Total 1100 ml 1200 ml 1100 ml Balance 1100 ml 1200 ml 1100 ml Intake Oral 0 ml IV Total 1100 ml 1000 ml 1100 ml Other 200 ml # Voids 1 2 2 # Bowel Movements 0 0 (Mirna Smith MD) Result Diagram: 05/01/17 0536 05/01/17 0536 Imaging Last Impressions GI Procedure 04/30/17 0000 Signed Impressions: Service Date/Time: April 10:25 - CONCLUSION: ERCP as above. Rene Arthur MD Chest X-Ray 04/30/17 0000 Signed Impressions: Service Date/Time: April 13:15 - CONCLUSION: 1. No acute cardiopulmonary findings. Rene Arthur MD Cholangiopancreatography MRI 04/29/17 0000 Signed Impressions: Service Date/Time: Saturday, April 29, 2017 08:26 - CONCLUSION: Gall bladder wall thickening with pericholecystic inflammatory changes most characteristic of acute cholecystitis. There is a tiny filling defect in the distal common duct most characteristic of choledocholithiasis. Common bile duct dilated to 11 mm. August Thompson MD Gall Bladder Ultrasound 04/28/17 0000 Signed Impressions: Service Date/Time: Friday, April 28, 2017 07:40 - CONCLUSION: 1. Moderately distended gallbladder containing sludge. Sonographic findings of gallbladder wall thickening, pericholecystic fluid and sonographic Nickerson's sign are consistent with acute cholecystitis. 2. Common bile duct is distended up to 9 mm although a definitive stone or mass is not demonstrated in the visualized portions. Choledocholithiasis or distal obstructing lesion not imaged on this ultrasound cannot be entirely excluded. Cole Cordoba MD Objective Remarks GENERAL: Patient is a female laying in bed that appears comfortable. Awake and alert and responding to questions appropriately. SKIN: Warm and dry. Psoriatic plaques noted on the elbows, not draining. Scattered papules noted on the arms as well, no evidence of infection. HEAD: Atraumatic. Normocephalic. EYES: Pupils equal and round. No scleral icterus. No injection or drainage. ENT: No nasal bleeding or discharge. Mucous membranes pink and moist. No tonsillar erythema or exudate noted. Dry cough noted. NECK: Trachea midline. No JVD. No lymphadenopathy noted. CARDIOVASCULAR: Regular rate and rhythm. No murmurs, gallops, or rubs. RESPIRATORY: No accessory muscle use. Clear to consultation bilaterally. Breath sounds equal bilaterally. GASTROINTESTINAL: Abdomen is diffusely tender to palpation with no guarding. No rebound tenderness appreciated. MUSCULOSKELETAL: Extremities without clubbing, cyanosis, or edema. No obvious deformities. NEUROLOGICAL: Awake and alert. No obvious cranial nerve deficits. Motor grossly within normal limits. Normal strength normal speech. PSYCHIATRIC: Appropriate mood and affect; insight and judgment normal. Medications and IVs Inpatient Medications Acetaminophen (Tylenol) 650 mg Q6H PRN PO PAIN SCALE 1 TO 2 Last administered on 04/28/17 18:11; Start 04/28/17 at 12:00 Albuterol Sulfate (Albuterol Neb) 2.5 mg Q2HR NEB PRN INH SHORTNESS OF BREATH Last administered on 04/30/17 13:42; Start 04/29/17 at 12:15 Albuterol/ Ipratropium (Duoneb Neb) 1 ampule Q6HR NEB INH Last administered on 05/01/17 08:44; Start 04/29/17 at 16:00 Benzonatate (Tessalon) 100 mg TID PRN PO cough Last administered on 05/01/17at 03:16; Start 04/28/17 at 17:00 Bisacodyl (Dulcolax Supp) 10 mg DAILY PRN RECTAL SEVERE CONSITIPATION; Start at 11:30 Budesonide/ Formoterol Fumarate (Symbicort 160-4.5 Mcg Inh) 2 puff Q12HR INH Last administered on 05/01/17 08:04; Start 04/29/17 at 12:00 Ceftriaxone Sodium 1000 mg/ Sodium Chloride 100 ml @ 200 mls/hr Q24H IV Last administered on 05/01/17at 03:12; Start 04/29/17 at 04:00 Chlorhexidine Gluconate (Chlorhexidine 2% Cloth) 3 pack INTEGRATION SOLUTION ARCHITECT PRN TOPICAL SEE LABEL COMMENTS; Start 04/30/17 at 19:30; Stop 05/03/17 at 19:29 Enalaprilat (Vasotec Inj) 1.25 mg Q6H PRN IV PUSH SBP> OR = 180, DBP> OR = 100 ; Start 04/28/17 at 17:00 Fluoxetine HCl (PROzac) 40 mg DAILY PO Last administered on 04/30/17at 20:26; Start 04/28/17 at 13:00 Lactated Ringer's 1,000 ml @ 30 mls/hr Q24H PRN IV SEE LABEL COMMENTS; Start at 19:30; Stop 05/03/17 at 19:29 Lactulose (Lactulose Liq) 30 ml DAILY PRN PO SEVERE CONSITIPATION; Start at 11:30 Levofloxacin/ Dextrose 100 ml @ 100 mls/hr ONCE ONCE IV Last administered on 04/28/17at 06:38; Start 04/28/17 at 05:45; Stop 04/28/17 at 06:44; Status DC Magnesium Hydroxide (Milk Of Magnesia Liq) 30 ml Q12H PRN PO Mild constipation ; Start 04/29/17 at 11:30 Magnesium Citrate (Citroma Liq) 300 ml ONCE ONCE PO Last administered on at 15:36; Start 04/29/17 at 15:00; Stop 04/29/17 at 15:01; Status DC Metoprolol Tartrate (Lopressor) 25 mg INTEGRATION SOLUTION ARCHITECT PRN PO SEE LABEL COMMENTS; Start 04/30/17 at 19:30; Stop 05/03/17 at 19:29 Miscellaneous Information ALL NURSING DEPARTME... UNSCH PRN .XX SEE LABEL COMMENTS; Start 04/30/17 at 11:45; Stop 05/01/17 at 11:44 Morphine Sulfate (Morphine Inj) 4 mg Q3H PRN IV PUSH Pain 6-10;if unable to take PO Last administered on 05/01/17at 06:22; Start 04/28/17 at 12:00 Naloxone HCl (Narcan Inj) 0.4 mg UNSCH PRN IV PUSH SEE LABEL COMMENTS; Start at 11:15 Ondansetron HCl (Zofran Inj) 4 mg Q6H PRN IVP NAUSEA OR VOMITING Last administered on 05/01/17at 03:11; Start 04/28/17 at 12:00 Potassium Bicarb/ Potassium Chloride (K-Lyte Cl Eff) 50 meq ONCE ONCE PO Last administered on 04/28/17at 06:38; Start 04/28/17 at 05:45; Stop 04/28/17 at 05:46; Status DC Potassium Chloride (KCl) 40 meq ONCE ONCE PO Last administered on 04/29/17at 13 :06; Start 04/29/17 at 12:15; Stop 04/29/17 at 12:16; Status DC Povidone Iodine (Betadine 5% Antisepsis Kit) 1 applic INTEGRATION SOLUTION ARCHITECT PRN EACH NARE SEE LABEL COMMENTS; Start 04/30/17 at 19:30; Stop 05/03/17 at 19:29 Senna/Docusate Sodium (Sylvie-Colace) 1 tab BID PO Last administered on at 08:03; Start 04/28/17 at 21:00 Sennosides (Senokot) 17.2 mg Q12H PRN PO Moderate constipation; Start 04/29/17 at 11:30 Sodium Chloride 500 ml @ 30 mls/hr [id number] PRN IV SEE LABEL COMMENTS; Start at 19:30; Stop 05/03/17 at 19:29 Sodium Chloride (NS Flush) 2 ml BID IV FLUSH Last administered on 04/30/17at 20: 28; Start 04/28/17 at 21:00 Tiotropium Omro (Spiriva Inh) 18 mcg DAILY INH Last administered on at 08:04; Start 04/29/17 at 09:00 Triamcinolone Acetonide (Aristocort 0.1% Cream) 1 applic Q6HR TOPICAL Last administered on 04/30/17at 17:47; Start 04/28/17 at 18:00 (Mirna Smith MD) Urinary Catheter: No (Mirna Smith MD) Vascular Central Line Catheter: No (Mirna Smith MD) A/P Assessment and Plan 31-year-old female with acute cholecystitis. Past medical history notable for COPD, JAISON, depression. Admitted to inpatient due to diagnosis of acute cholecystitis, managing with antibiotics and control pain with IV and oral medications. Status post MRCP on 04/29 and ERCP on 04/30. Patient complaining of diffuse abdominal and chest pain after the procedure on 04/30 with negative workup. Going to OR for cholecystectomy today 05/01 Discharge Planning Cholecystectomy today 05/01. Anticipate 1-2 day post operative monitoring with discharge to home. General surgery and gastroenterology consulted, appreciate management (Mirna Smith MD) Attending Attestation Patient seen, examined and discussed with the medicine team this morning. She appears more comfortable today. Her exam is unchanged in that she is diffusely tender across the entire abdomen. We anticipate laparoscopic cholecystectomy today. I agree with the findings as documented, as well as the plan. (Maria M Lafleur MD) Problem List: (1) Acute cholecystitis ICD Codes: K81.0 - Acute cholecystitis Status: Acute Plan: Symptoms have persisted for weeks. No leukocytosis. Ultrasound does show evidence of cholecystitis with gallbladder wall thickening, large gallbladder and enlarged bile duct, biliary sludge. MRCP 04/29 showing dilated common bile duct 11 mm suggestive of stone. Patient is not a high surgical risk , anticipate elective cholecystectomy to be performed during this hospitalization (tentatively planned for Monday 05/01). General surgery consult, appreciate recommendations and management Mild transaminitis noted today, likely related to acute illness, did get MRCP today, will monitor closely Gastroenterology consulted on 04/29, ERCP performed on 04/30 with balloon sweeping of the duct and stone removal Patient complaining of diffuse abdominal pain, chest pain after the ERCP procedure. Chest pain workup as below. CBC, CMP pending and GI was made aware per nursing Pain: * Tylenol 650mg PO pain 1-2 * Morphine IV 2 mg every 3 hours pain 3-5 unable to tolerate PO * Morphine IV 4 mg every 3 hours pain 6-10 unable to tolerate PO * Will reassess breakthrough pain to ensure no evidence of acute abdomen * Bowel regimen to include scheduled Sylvie-Colace twice daily Infection: * Patient does not have fever now but did have temperatures at home and max fever of 100.4F in ED * Levaquin 500 mg IV 1 in ED 04/29 * Rocephin 1 g IV daily, start date 04/29 Support: * NPO at midnight prior to surgery * Zofran 4 mg IV as needed for nausea (2) Chest pain ICD Codes: R07.9 - Chest pain, unspecified Plan: Patient complaining of substernal chest pain that radiates to the left arm after the ERCP on 04/30 Stat EKG, troponins, CBC, CMP, chest x-ray ordered and negative for cardiac ischemia, acute illness EKG reviewed at bedside and appears normal Vital signs within normal limits Likely secondary to postop pain and anxiety Will follow up labs to rule out ACS (3) Chronic obstructive lung disease Status: Chronic Plan: Chronic JAISON, COPD, asthma diagnoses. Med rec from outpatient setting include Spiriva, as needed albuterol. Not currently on inhaled corticosteroid. * Continue Spiriva starting 04/29 * Symbicort 160 mcg/formoterol 4.5 mcg at 2puffs twice daily * Duonebs every 6 hr scheduled, with Albuterol every 2 hr as needed for wheezing , SOB * Continue incentive spirometry * Continue Tessalon Perrles for cough PRN * CXR on admission normal (4) Depression ICD Codes: F32.9 - Major depressive disorder, single episode, unspecified Status: Chronic Plan: Moderate persistent depression with current Prozac 40 mg daily use. No SI/HI will continue home dose. (5) Tobacco abuse ICD Codes: Z72.0 - Tobacco use Status: Chronic Plan: Patient states she has not had a cigarette in a while given her illness. Does not appear to require a nicotine patch at this time but will order as needed. Counseled on smoking cessation (6) Psoriasis Status: Chronic Plan: Chronic, stable, patient uses topical [id number] but states these did not work * Will give medium potency topical steroid triamcinolone acetonide cream 0.1% to be used twice daily (7) Anemia ICD Codes: D64.9 - Anemia, unspecified Status: Acute Plan: Mild and stable. Suspect anemia is dilutional. Trend CBC and monitor closely. (8) Hypokalemia ICD Codes: E87.6 - Hypokalemia Status: Acute Plan: Mild hypokalemia, likely related to acute illness affecting nutrition. Will replete as needed and monitor (9) Fluids/Electrolytes/Nutrition/Prophylaxis Status: Acute Plan: Fluids: NS 100 mL per hour Electrolytes: monitor and replete as needed Nutrition: Nothing by mouth DVT Prophylaxis: Early ambulation. If patient has reduced ambulation will initiate Lovenox. Will order bilateral SCDs while in bed. GI Prophylaxis: None indicated, may consider PPI if symptoms suggest the need for this PRN anti-HTN: Vasotec 1.35mg IV PRN for SBP > 180/ and/or DBP > 100 (Mirna Smith MD) Problem Qualifiers (1) Depression: Qualified Codes: F33.1 - Major depressive disorder, recurrent, moderate Mirna Smith MD May 01, 2017 09:14 Maria M Lafleur MD May 01, 2017 13:23
--- NOTE | 2017-05-01 10:45 | HHI.GIFU ---
Subjective Remarks pt resting in bed. still with abd pain. going for lap meggan today (Nettie Mclaughlin) Objective Vitals I&O Vital Signs Date Time Temp Pulse Resp B/P (MAP) Pulse Ox O2 Delivery O2 Flow Rate FiO2 05/01/17 08:45 93 05/01/17 08:00 98.6 67 18 117/73 (88) 95 05/01/17 04:00 97.5 76 18 107/60 (76) 96 05/01/17 00:39 97.2 69 18 121/65 (83) 98 04/30/17 20:00 98.0 63 18 119/60 (79) 96 04/30/17 19:43 96 Nasal Cannula 2.00 04/30/17 16:00 98.4 89 18 125/78 (94) 96 04/30/17 13:44 96 Nasal Cannula 2.00 04/30/17 12:55 98.5 76 18 136/67 (90) 95 04/30/17 12:10 97.4 95 20 145/83 (103) 94 04/30/17 11:40 67 14 142/82 (102) 95 Nasal Cannula 3 04/30/17 11:30 67 14 141/67 (91) 95 Nasal Cannula 3 04/30/17 11:15 62 14 130/71 (90) 97 Nasal Cannula 3 04/30/17 11:00 68 14 129/69 (89) 93 Nasal Cannula 3 04/30/17 10:49 98.9 72 14 122/91 (101) 93 Simple Mask 8 I/O 04/30/17 04/30/17 04/30/17 05/01/17 05/01/17 05/01/17 07:00 15:00 23:00 07:00 15:00 23:00 Intake Total 1100 ml 1200 ml 1100 ml Balance 1100 ml 1200 ml 1100 ml Intake Oral 0 ml IV Total 1100 ml 1000 ml 1100 ml Other 200 ml # Voids 1 2 2 # Bowel Movements 0 0 Laboratory Laboratory Tests Test 04/30/17 15:02 05/01/17 05:36 White Blood Count 5.0 3.3 Red Blood Count 3.58 3.24 Hemoglobin 10.6 9.7 Hematocrit 31.8 28.8 Mean Corpuscular Volume 88.9 89.0 Mean Corpuscular Hemoglobin 29.7 29.9 Mean Corpuscular Hemoglobin Concent 33.4 33.6 Red Cell Distribution Width 14.8 14.8 Platelet Count 163 149 Mean Platelet Volume 9.8 9.3 Neutrophils (%) (Auto) 83.2 56.0 Lymphocytes (%) (Auto) 10.6 33.0 Monocytes (%) (Auto) 5.2 7.5 Eosinophils (%) (Auto) 0.7 3.3 Basophils (%) (Auto) 0.3 0.2 Neutrophils # (Auto) 4.1 1.8 Lymphocytes # (Auto) 0.5 1.1 Monocytes # (Auto) 0.3 0.2 Eosinophils # (Auto) 0.0 0.1 Basophils # (Auto) 0.0 0.0 CBC Comment DIFF FINAL DIFF FINAL Differential Comment Blood Urea Nitrogen 3 3 Creatinine 0.58 0.51 Random Glucose 98 74 Total Protein 6.6 6.1 Albumin 2.7 2.4 Calcium Level 8.2 8.2 Alkaline Phosphatase 195 176 Aspartate Amino Transf (AST/SGOT) 57 33 Alanine Aminotransferase (ALT/SGPT) 73 51 Total Bilirubin 0.3 0.3 Sodium Level 140 140 Potassium Level 3.6 3.5 Chloride Level 105 106 Carbon Dioxide Level 27.9 25.9 Anion Gap 7 8 Estimat Glomerular Filtration Rate 120 139 Troponin I LESS THAN 0.02 Date/Time Source Procedure Growth Status 04/28/17 04:55 Nasal Washing Influenza Types A,B Antigen (PIO) - Final NEGATIVE FOR FLU A AND B ANTIGEN.... Complete Imaging Last Impressions GI Procedure 04/30/17 0000 Signed Impressions: Service Date/Time: April 10:25 - CONCLUSION: ERCP as above. Rene Arthur MD Chest X-Ray 04/30/17 0000 Signed Impressions: Service Date/Time: April 13:15 - CONCLUSION: 1. No acute cardiopulmonary findings. Rene Arthur MD Cholangiopancreatography MRI 04/29/17 0000 Signed Impressions: Service Date/Time: Saturday, April 29, 2017 08:26 - CONCLUSION: Gall bladder wall thickening with pericholecystic inflammatory changes most characteristic of acute cholecystitis. There is a tiny filling defect in the distal common duct most characteristic of choledocholithiasis. Common bile duct dilated to 11 mm. August Thompson MD Gall Bladder Ultrasound 04/28/17 0000 Signed Impressions: Service Date/Time: Friday, April 28, 2017 07:40 - CONCLUSION: 1. Moderately distended gallbladder containing sludge. Sonographic findings of gallbladder wall thickening, pericholecystic fluid and sonographic Nickerson's sign are consistent with acute cholecystitis. 2. Common bile duct is distended up to 9 mm although a definitive stone or mass is not demonstrated in the visualized portions. Choledocholithiasis or distal obstructing lesion not imaged on this ultrasound cannot be entirely excluded. Cole Cordoba MD Physical Exam HEENT: PERRL; normocephalic; atraumatic; no jaundice. CHEST: CTA CARDIAC: RRR ABDOMEN: Soft, obese, TTP diffusely, BS + EXTREMITIES: No clubbing, cyanosis, trace BLE edema SKIN: Normal; no rash; no jaundice. GAS PLANT OPERATOR: No focal deficits; alert and oriented times three. (Nettie Mclaughlin [facility]) Assessment and Plan Assessment: (1) Acute cholecystitis ICD Codes: K81.0 - Acute cholecystitis Status: Acute (2) Anemia ICD Codes: D64.9 - Anemia, unspecified Status: Acute (3) Abdominal pain ICD Codes: R10.9 - Abdominal pain Status: Acute (4) BMI 36.0-36.9,adult ICD Codes: Z68.36 - Body mass index (BMI) 36.0-36.9, adult Plan Patient presented with abdominal pain 3 weeks, gallbladder ultrasound done on 04/28/17 shows moderate distended gallbladder containing sludge, wall thickening , Gt cholecystic fluid. Common bile duct is distended up to 9 mm although a definite stone or mass is not demonstrated in the visualized portions cholelithiasis or distal nonobstructing lesion is not imaged but cannot be excluded. MRCP done on 04/29/17 shows gallbladder wall thickening with Gt cholecystic inflammatory changes most characteristic of acute cholelithiasis. There is a tiny filling defect in the common bile duct most characteristic cholelithiasis common bile duct dilated to 11 mm., Lab data shows LFTs 75 AST, 73 ALT alkaline phosphatase 184, potassium 3, WBC count 3.9. Anemia unspecified, currently 9.9 without obvious bleeding Low-grade fever within the past 24 hours 100. Nausea currently being managed with Zofran, no further vomiting Epigastric right upper quadrant abdominal tenderness continues Constipation no BM 4 days this appears to be acute on chronic problem, [facility] consult noted. According to note plan for surgery or Thursday04/30/17 s/p ERCP yesterday, found CBD filling defect, sphincterotomy and ductal sweep done. plan was for lap meggan tomorrow. pt abd pain today. mild decrease LFTs from yesterday. Had mult BM after mg citrate yesterday 05/01/17 still with pain. going for lap meggan. LFTs trending down. lipase and amylase not elevated Plan await lap meggan further mgmt per [facility] GI will sign off. please reconsult if needed patient was seen by myself and Dr. Hendricks, this note was written on his behalf (Nettie Mclaughlin) Physician Comments Agree with above, seen and examined, plan for lap meggan today. (Carmelo Hendricks MD) Nettie Mclaughlin May 01, 2017 10:45 Carmelo Hendricks MD May 01, 2017 10:53
--- NOTE | 2017-05-01 11:24 | EKG ---
Date Performed: 04/30/2017 Time Performed: 13:12:51 PTAGE: 31 years EKG: Sinus rhythm NORMAL ECG PREVIOUS TRACING : 03/02/2017 01.22 Since the previous tracing, no significant change noted DOCTOR: Joao Hedrick Interpretating Date/Time 05/01/2017 11:23:03
[2017-05-01] MEDS ORDERED: NEOSTIGMINE 5 MG/5 ML SYRINGE IV PUSH ONE (12:00)
[2017-05-01] MEDS ORDERED: PROPOFOL 200 MG/20 ML AMP IV ONE (12:00)
[2017-05-01] MEDS ORDERED: LIDOCAINE HCL 1% PF 5 ML SYRINGE OTHER ONE (12:00)
[2017-05-01] MEDS ORDERED: METOPROLOL TARTRATE 5 MG/5 ML VIAL IV ONE (12:00)
[2017-05-01] MEDS ORDERED: DEXAMETHASONE SOD PHOS 4 MG/ML VIAL IV ONE (12:00)
[2017-05-01] MEDS ORDERED: ONDANSETRON HCL 4 MG/2 ML VIAL IV ONE (12:00)
[2017-05-01] MEDS ORDERED: ROCURONIUM INJ 50 MG/5 ML SYRINGE IV PUSH ONE (12:00)
[2017-05-01] MEDS ORDERED: GLYCOPYRROLATE 1 MG/5 ML SYRINGE IV PUSH ONE (12:00)
[2017-05-01] MEDS ORDERED: DEXMEDETOMIDINE HCL 200 MCG/2 ML VIAL ONE (12:17)
[2017-05-01] MEDS ORDERED: ACETAMINOPHEN 1000 MG/100 ML 100 ML IV ONE (12:17)
[2017-05-01] MEDS ORDERED: BUPIVACAINE HCL PF 0.25% 30 ML VIAL ONE (12:25)
[2017-05-01] MEDS ORDERED: BUPIVACAINE/EPINEPHRINE 0.25% PF 10 ML VIAL ONE (12:28)
[2017-05-01] MEDS ORDERED: IOHEXOL 300 MG/ML 100 ML BTL (for Rad CT) OTHER ONE (14:05)
[2017-05-01] MEDS ORDERED: TRAM50TA PO (14:43)
[2017-05-01] MEDS ORDERED: DO NOT ADM ANY ANTICOAGULANT DRUGS PRN (14:43)
[2017-05-01] MEDS ORDERED: *RESP: ALBUTEROL 2.5 MG/3 ML NEB (PRN) PERIprocedural Use ONLY NEB ONE (14:45)
--- NOTE | 2017-05-01 14:47 | HHI.PR ---
cc: Edgardo Clark MD Immediate Post Op Note Procedure Date: May 01, 2017 Pre Op Diagnosis: Cholecystitis with previous choledocholithiasis Post Op Diagnosis: Same Surgeon: Edgardo Clark Executive Assistant(s): Christina Sotomayor CFA Procedure: Laparoscopic cholecystectomy with intraoperative cholangiogram with intraoperative use of fluoroscopy Complications: None Specimen(s) removed: Gallbladder and contents to pathology Estimated blood loss: 150 ml Anesthesia: General Drains: None IVF (700 ml) Patient to: PACU Patient Condition: Good Date/Time of Procedure: SEE SURGICAL CARE RECORD Edgardo Clark MD May 01, 2017 14:47
[2017-05-01] MEDS ORDERED: MORPHINE SULFATE 4 MG/ML INJ ONE (15:08)
[2017-05-01] MEDS ORDERED: MIDAZOLAM HCL 2 MG/2 ML VIAL ONE (15:08)
--- NOTE | 2017-05-01 15:17 | MP ---
cc: Edgardo Clark MD DATE OF OPERATION: 05/01/2017 PROCEDURE: Laparoscopic cholecystectomy with intraoperative cholangiogram with intraoperative use of fluoroscopy. PREOPERATIVE DIAGNOSIS: Cholecystitis with previous choledocholithiasis, status post endoscopic retrograde cholangiopancreatography. POSTOPERATIVE DIAGNOSIS: Cholecystitis with previous choledocholithiasis, status post endoscopic retrograde cholangiopancreatography. ANESTHESIA: General endotracheal. SURGEON: Eduardo. COTTON FARMWORKER: Mian Sotomayor CFA. ESTIMATED BLOOD LOSS: 150 mL FLUIDS: 700 mL crystalloid. COMPLICATIONS: None. DRAINS: None. SPECIMENS: Gallbladder and contents to pathology. PROCEDURE IN DETAIL: The patient was taken to the operating room and placed on the operating table in the supine position. After an adequate level of general endotracheal anesthesia was achieved, the abdomen was prepped and draped in the usual fashion. Timeout was taken confirming the correct patient, site, and procedure to be performed. Skin and subcutaneous tissue was infiltrated with local anesthetic, and an incision was made through the skin and carried through the fascia sharply. The peritoneal cavity was directly visualized. A 12 mm balloon trocar was inserted and the balloon inflated. The abdomen was insufflated. The patient was placed in reverse Trendelenburg position. Three 5 mm trocars were then placed with the first to the right of the falciform ligament and second and third in the right subcostal region. All entered the abdominal cavity under direct vision uneventfully. The gallbladder was somewhat tense and had omentum plastered to it. The omentum was taken down with minimal use of electrocautery and blunt dissection. The gallbladder was punctured and approximately 60 mL of dark green bile was removed, allowing the gallbladder to be decompressed. The gallbladder was then able to be grasped and retracted up and over the dome of the liver. The cystic duct-infundibular junction and cystic artery were then both circumferentially dissected. The cystic artery was doubly clipped proximally, singly clipped on the gallbladder side and divided. While further dissecting the gallbladder, the cystic artery was peeled off of the cystic duct and was further clipped more proximally with 2 clips as well to achieve absolute hemostasis. When this was accomplished, a single clip was placed on the gallbladder side of the cystic duct and a cystic ductotomy was made. An Tolbert cholangiocatheter was brought in via separate stab incision and placed into the cystic duct and secured with a clip. Full-strength contrast was used to obtain a cholangiogram. No filling defects were noted. There was good flow of contrast into the duodenum with a clear common bile duct; the common hepatic duct backfilled and the right hepatic duct filled easily. No filling defects were noted. The cholangiocatheter was then removed, the cystic duct doubly clipped distally and the cystic duct then divided. The gallbladder was dissected off the liver bed with electrodissection. The gallbladder was then placed into an EndoCatch device and removed via the umbilical port while observing via the upper 5 mm trocar site. The specimen was passed off the table. The upper abdomen was revisualized, and oozing on the liver bed was controlled with both electrocautery and placement of SNoW clotting agent in the liver bed. This allowed for complete hemostasis. The cystic artery stump and cystic duct stump were both revisualized and seemed to be clean and dry. The liver bed was now clean and dry as well. All irrigation was aspirated from the abdominal cavity and insufflation then discontinued. The upper abdominal trocars and the cholangiogram catheter trocar were removed under direct vision. No bleeding was noted from the trocar sites during desufflation of the abdomen. The laparoscope and umbilical port were then removed. The fascia at the umbilicus was closed with 0 Vicryl suture in a simple interrupted fashion. The remaining local anesthetic was injected into each of the trocar sites. The skin was closed at each of the trocar sites with 4-0 Vicryl in an interrupted buried fashion. All trocar sites were dressed with Steri-Strips. The patient was extubated and taken back to the recovery room in stable condition. She tolerated the procedure well. MD ADELITA Alvarez/PUJA , 02:55 PM , 03:16 PM
[2017-05-01] MEDS ORDERED: *ONDANSETRON 4 MG VIAL PERIprocedural Use ONLY ONE (15:22)
[2017-05-01] MEDS: traMADol HCL 50 MG TAB PO PRN ×2 (16:06→22:16)
--- NOTE | 2017-05-01 16:08 | RADRPT ---
EXAM DATE/TIME: 05/01/2017 15:20 [facility] COMPARISON: CHEST SINGLE AP, April 30, 2017, 13:15. INDICATIONS : Short of breath post op. MEDICAL HISTORY : Chronic obstructive pulmonary disease. Asthma, acute cholecystitis. SURGICAL HISTORY : section. Tubal ligation. ENCOUNTER: Initial ACUITY: 1 day PAIN SCORE: 0/10 LOCATION: chest FINDINGS: Bibasilar patchiness is noted consistent with probable pneumonia and/or atelectasis. The heart is sta ble. CONCLUSION: Bibasilar patchiness consistent with probable pneumonia and/or atelectasis. Maxx Son MD on May 01, 2017 at 16:04 Board Certified Radiologist. This report was verified electronically.
--- NOTE | 2017-05-01 21:22 | RADRPT ---
EXAM DATE/TIME: 05/01/2017 12:41 [facility] COMPARISON: GI LAB ERCP, April 30, 2017, 10:25. INDICATIONS : Choledocholithiasis FLUORO TIME: .27 minutes IMAGE COUNT: 2 MEDICAL HISTORY : Chronic obstructive pulmonary disease. Diabetes mellitus type II. SURGICAL HISTORY : Tubal ligation. section. ENCOUNTER: Subsequent ACUITY: 3 days PAIN SCORE: Non-responsive. LOCATION: Abdomen. PROCEDURE: CHOLANGIOGRAM, OPERATIVE 1. Intraoperative cholangiogram. In the operating room, the cystic duct stump was injected and radiographs obtained. The examination demonstrates no filling defects. Contrast passes through the sphincter into the small bowel. CONCLUSION: No filling defects or obstruction. Frederic Lynne MD on May 01, 2017 at 21:19 Board Certified Radiologist. This report was verified electronically.
[2017-05-02] VITALS (7 sets, daily range): BP systolic 100–131; BP diastolic 62–78; PULSE 60–66; RESP 16–20; TEMP 96.1–97.1; O2SAT 95–100
[2017-05-02] MEDS: MORPHINE SULFATE 2 MG/ML INJ IV PUSH PRN ×3 (00:57→09:41)
[2017-05-02] MEDS: SODIUM CHLOR 0.9% 1000 ML INJ 1,000 ML IV SCH ×2 (00:58→09:26)
[2017-05-02] MEDS: RESP: ALBUTEROL 2.5 MG/IPRATROPIUM 0.5 MG NEB (SCH) INH ×3 (02:27→20:08)
[2017-05-02] MEDS: cefTRIAXone INJ 1,000 MG in SODIUM CHLORIDE 0.9% INJ 100 ML IV SCH (04:52)
[2017-05-02] MEDS: ONDANSETRON HCL 4 MG/2 ML VIAL IVP PRN ×2 (04:56→11:12)
[2017-05-02] MEDS: TRIAMCINOLONE ACETONIDE 0.1% CREAM 15 GM TOPICAL SCH ×6 (06:00→20:28)
[2017-05-02 06:22] LABS: AUTOMATED NEUTROPHIL # 2.7 TH/MM3 (1.8-7.7); BASOPHIL % 0.4 % (0.0-2.0); EOSINOPHIL % 0.1 % (0.0-4.0); HEMATOCRIT 29.1 % (35.0-46.0); HEMOGLOBIN 9.8 GM/DL (11.6-15.3); MEAN CELL VOLUME 88.5 FL (80.0-100.0); MEAN CORPUSCULAR HEMOGLOBIN 29.8 PG (27.0-34.0); MEAN CORPUSCULAR HGB CONC 33.6 % (32.0-36.0); MEAN PLATELET VOLUME 9.7 FL (7.0-11.0); MONO % 7.1 % (0.0-8.0); MONOCYTE # 0.3 TH/MM3 (0-0.9); NEUT % 68.4 % (16.0-70.0); PLATELET COUNT 160 TH/MM3 (150-450); RED BLOOD COUNT 3.28 MIL/MM3 (4.00-5.30); RED CELL DISTRIBUTION WIDTH 14.8 % (11.6-17.2)
[2017-05-02 07:04] LABS: ALBUMIN 2.3 GM/DL (3.4-5.0); ALKALINE PHOSPHATASE 177 U/L (45-117); ALT (GPT) 80 U/L (10-53); AST (GOT) 125 U/L (15-37); BICARBONATE 28.7 MEQ/L (21.0-32.0); BLOOD UREA NITROGEN 2 MG/DL (7-18); CALCIUM 7.8 MG/DL (8.5-10.1); CHLORIDE 109 MEQ/L (98-107); CREATININE 0.59 MG/DL (0.50-1.00); GLOMERULAR FILTRATION RATE 117 ML/MIN (>89); GLUCOSE,RANDOM 106 MG/DL (74-106); SODIUM (NA) 144 MEQ/L (136-145); TOTAL BILIRUBIN ADULT 0.3 MG/DL (0.2-1.0)
[2017-05-02] MEDS: DOCUSATE SODIUM 50 MG/SENNA 8.6 MG TAB PO SCH ×2 (09:27→20:26)
[2017-05-02] MEDS: TIOTROPIUM BROMIDE 18 MCG INH INH SCH (09:27)
[2017-05-02] MEDS: BUDESONIDE-FORMOTEROL 160/4.5 MCG INHALER INH SCH ×2 (09:27→20:26)
[2017-05-02] MEDS: SODIUM CHLORIDE 0.9% FLUSH 10 ML FLUSH IV FLUSH SCH ×2 (09:28→20:26)
[2017-05-02] MEDS: FLUoxetine HCL 20 MG CAP PO SCH (09:28)
[2017-05-02] MEDS: BENZONATATE 100 MG CAP PO PRN (09:31)
[2017-05-02] MEDS: KETOROLAC TROMETHAMINE 10 MG TAB PO SCH ×3 (11:12→20:27)
--- NOTE | 2017-05-02 12:55 | HHI.FPPN ---
Subjective Remarks No acute events overnight. Vital signs unremarkable. This morning patient reports nausea but without vomiting. Also endorses some abdominal pain that is worsened with coughing. Endorses flatus but no BM. Denies any chest pain. No other acute concerns. (Chanelle Armijo MD, R3) Objective Vitals Vital Signs Date Time Temp Pulse Resp B/P (MAP) Pulse Ox O2 Delivery O2 Flow Rate FiO2 05/02/17 12:00 97.1 64 18 131/78 (95) 99 05/02/17 08:36 96.1 66 20 126/78 (94) 95 05/02/17 06:01 18 05/02/17 01:07 18 05/02/17 01:07 18 05/02/17 00:00 96.1 64 18 120/62 (81) 97 05/01/17 20:00 97.8 65 18 102/63 (76) 98 05/01/17 19:44 97 Nasal Cannula 4.00 05/01/17 16:00 97.5 70 18 133/77 (95) 94 05/01/17 15:37 68 17 130/73 (92) 95 Nasal Cannula 4 05/01/17 15:10 70 11 131/69 (89) 93 Nasal Cannula 4 05/01/17 14:55 75 22 127/71 (89) 91 Simple Mask 6 05/01/17 14:40 98.1 77 12 129/73 (91) 84 Simple Mask 6 I/O 05/01/17 05/01/17 05/01/17 05/02/17 05/02/17 05/02/17 07:00 15:00 23:00 07:00 15:00 23:00 Intake Total 1100 ml 700 ml 480 ml 100 ml Output Total 150 ml 400 ml Balance 1100 ml 550 ml 80 ml 100 ml Intake Oral 480 ml IV Total 1100 ml 700 ml 100 ml Output Urine Total 400 ml Estimated Blood Loss 150 ml # Voids 2 # Bowel Movements 0 (Chanelle Armijo MD, R3) Result Diagram: 05/02/17 0510 05/02/17 0510 Objective Remarks GEN: Well-developed, well-nourished patient. No acute distress. Resting comfortably in bed. CV: Regular rate and rhythm without obvious murmurs LUNGS: Good air movement bilaterally with no accessory muscle use. Minimal bibasilar crackles present but without wheezing. GI: Abdomen soft with bowel sounds present. EXT: No edema. No calf tenderness. NEURO/PSYCH: Awake, alert. Appropriate insight and judgment. Normal speech (Chanelle Armijo MD, R3) A/P Assessment and Plan 31-year-old female with acute cholecystitis. Past medical history notable for COPD, JAISON, depression. Admitted to inpatient due to diagnosis of acute cholecystitis that was initially medically managed with pain medications and antibiotics. Status post MRCP on 04/29 and ERCP on 04/30. Definitive treatment with laparoscopic cholecystectomy performed 05/01. Discharge Planning Likely tomorrow pending clearance from general surgery and pain control with oral medications. sdw Dr. Lafleur and Dr. Magaña (Chanelle Armioj MD, R3) Attending Attestation 31-year-old female patients seen today and examined with the medicine team.She still complains of some nausea and discomfort has been continuing to use morphine IV. Got no relief from all tram, and reports that she cannot take hydrocodone, oxycodone or codeine. Exam reveals a little tenderness in the abdomen, her dressings are intact. We will adjust her pain medication to Toradol by mouth and hopefully she will be able to tolerate her discomfort well enough to be discharged on this medication tomorrow, to follow-up with her primary care doctor who is Dr. Smith. I agree with the physical findings and the physical exam as documented. (Maria M Lafleur MD) Problem List: (1) Acute cholecystitis ICD Codes: K81.0 - Acute cholecystitis Status: Acute Plan: Ultrasound does show evidence of cholecystitis with gallbladder wall thickening, large gallbladder and enlarged bile duct, biliary sludge. MRCP showing dilated common bile duct 11 mm suggestive of stone. Underwent laparoscopic cholecystectomy 05/01 that was uncomplicated. -associated with elevated liver enzymes that remain elevated, slightly worsened after surgery, continue to closely monitor -incentive spirometry and PT ordered to encourage patient to get out of bed and minimize risk of developing PNA -goal is to wean off of IV pain meds in anticipation for discharge * morphine may be contributing to continued nausea General surgery consulted: appreciate recommendations Gastroenterology consulted: appreciate recommendations * ERCP performed on 04/30 with balloon sweeping of the duct and stone removal Medications: * Tylenol 650mg PO pain 1-2 * Toradol 10mg PO q6hr scheduled as pt reports she is unable to take [place]/ Percocet * Bowel regimen to include scheduled Sylvie-Colace twice daily * Levaquin 500 mg IV 1 in ED 04/29 * Rocephin 1 g IV daily, 04/29-05/02 * Zofran 4 mg IV as needed for nausea (2) Chest pain ICD Codes: R07.9 - Chest pain, unspecified Status: Resolved Plan: Chest pain symptoms have continued to be resolved. Initially started after ERCP. Cardiac and respiratory eval unremarkable. -likely secondary to post op pain (3) Chronic obstructive lung disease Status: Chronic Plan: Chronic JAISON, COPD, asthma diagnoses. Med rec from outpatient setting include Spiriva, as needed albuterol. Not currently on inhaled corticosteroid. * Continue Spiriva starting 04/29 * Symbicort 160 mcg/formoterol 4.5 mcg at 2puffs twice daily * Duonebs every 6 hr scheduled, with Albuterol every 2 hr as needed for wheezing , SOB * Continue incentive spirometry * Continue Tessalon Perrles for cough PRN * CXR on admission normal (4) Depression ICD Codes: F32.9 - Major depressive disorder, single episode, unspecified Status: Chronic Plan: Moderate persistent depression with current Prozac 40 mg daily use. No SI/HI will continue home dose. (5) Tobacco abuse ICD Codes: Z72.0 - Tobacco use Status: Chronic Plan: Patient states she has not had a cigarette in a while given her illness. Does not appear to require a nicotine patch at this time but will order as needed. Counseled on smoking cessation (6) Psoriasis Status: Chronic Plan: Chronic, stable, patient uses topical [id number] but states these did not work * Will give medium potency topical steroid triamcinolone acetonide cream 0.1% to be used twice daily (7) Anemia ICD Codes: D64.9 - Anemia, unspecified Status: Chronic Plan: Mild and stable, likely chronic in nature but with no acute symptoms. (8) Fluids/Electrolytes/Nutrition/Prophylaxis Status: Acute Plan: Fluids: none Electrolytes: monitor and replete as needed Nutrition: Clear DVT Prophylaxis: Early ambulation. If patient has reduced ambulation will initiate Lovenox. Will order bilateral SCDs while in bed. GI Prophylaxis: None indicated, may consider PPI if symptoms suggest the need for this PRN anti-HTN: Vasotec 1.35mg IV PRN for SBP > 180/ and/or DBP > 100 (Chanelle Armijo MD, R3) Problem Qualifiers (1) Depression: Qualified Codes: F33.1 - Major depressive disorder, recurrent, moderate Chanelle Armijo MD, R3 May 02, 2017 12:55 Maria M Lafleur MD May 02, 2017 14:35
--- NOTE | 2017-05-02 20:22 | HHI.PR ---
Subjective Subjective Notes Hungry Breathing still an issue; likely bronchitis Objective Vitals/I&O Vital Signs Date Time Temp Pulse Resp B/P (MAP) Pulse Ox O2 Delivery O2 Flow Rate FiO2 05/02/17 20:09 100 Nasal Cannula 4.00 05/02/17 16:00 97.1 60 16 107/77 (87) 04/28/17 20:55 21 Labs Laboratory Tests Test 05/02/17 05:10 White Blood Count 4.0 Red Blood Count 3.28 Hemoglobin 9.8 Hematocrit 29.1 Mean Corpuscular Volume 88.5 Mean Corpuscular Hemoglobin 29.8 Mean Corpuscular Hemoglobin Concent 33.6 Red Cell Distribution Width 14.8 Platelet Count 160 Mean Platelet Volume 9.7 Neutrophils (%) (Auto) 68.4 Lymphocytes (%) (Auto) 24.0 Monocytes (%) (Auto) 7.1 Eosinophils (%) (Auto) 0.1 Basophils (%) (Auto) 0.4 Neutrophils # (Auto) 2.7 Lymphocytes # (Auto) 1.0 Monocytes # (Auto) 0.3 Eosinophils # (Auto) 0.0 Basophils # (Auto) 0.0 CBC Comment DIFF FINAL Differential Comment Blood Urea Nitrogen 2 Creatinine 0.59 Random Glucose 106 Total Protein 6.0 Albumin 2.3 Calcium Level 7.8 Alkaline Phosphatase 177 Aspartate Amino Transf (AST/SGOT) 125 Alanine Aminotransferase (ALT/SGPT) 80 Total Bilirubin 0.3 Sodium Level 144 Potassium Level 3.6 Chloride Level 109 Carbon Dioxide Level 28.7 Anion Gap 6 Estimat Glomerular Filtration Rate 117 Date/Time Source Procedure Growth Status 04/28/17 04:55 Nasal Washing Influenza Types A,B Antigen (PIO) - Final NEGATIVE FOR FLU A AND B ANTIGEN.... Complete Radiology Last 48 hours Impressions Chest X-Ray 04/28/17 0434 Signed Impressions: Service Date/Time: Friday, April 28, 2017 04:46 - CONCLUSION: No acute disease. Jerson Lambert Jr., MD Gall Bladder Ultrasound 04/28/17 0000 Signed Impressions: Service Date/Time: Friday, April 28, 2017 07:40 - CONCLUSION: 1. Moderately distended gallbladder containing sludge. Sonographic findings of gallbladder wall thickening, pericholecystic fluid and sonographic Nickerson's sign are consistent with acute cholecystitis. 2. Common bile duct is distended up to 9 mm although a definitive stone or mass is not demonstrated in the visualized portions. Choledocholithiasis or distal obstructing lesion not imaged on this ultrasound cannot be entirely excluded. Cole Cordoba MD Abdomen: Non-distended, Non-tender Narrative Exam Steri strips dry A/P Assessment and Plan 31 year old female acute cholecystitis; choledocholithiasis S/P lap meggan with IOC POD #1, doing well from surgery standpoint Advance diet Home when pulmonary status improves Edgardo Clark MD May 02, 2017 20:22
[2017-05-03] VITALS (7 sets, daily range): BP systolic 111–153; BP diastolic 65–76; PULSE 58–74; RESP 17–20; TEMP 97.8–98.8; O2SAT 94–98
[2017-05-03] MEDS: RESP: ALBUTEROL 2.5 MG/IPRATROPIUM 0.5 MG NEB (SCH) INH ×2 (03:53→08:10)
[2017-05-03] MEDS: KETOROLAC TROMETHAMINE 10 MG TAB PO SCH ×4 (04:00→23:27)
[2017-05-03] MEDS: SODIUM CHLORIDE 0.9% FLUSH 10 ML FLUSH IV FLUSH SCH ×2 (07:19→20:15)
[2017-05-03] MEDS: DOCUSATE SODIUM 50 MG/SENNA 8.6 MG TAB PO SCH ×2 (08:41→20:15)
[2017-05-03] MEDS: FLUoxetine HCL 20 MG CAP PO SCH (08:41)
--- NOTE | 2017-05-03 08:51 | HHI.FPPN ---
Subjective Remarks Patient was seen and examined this morning. POD #2 status post laparoscopic cholecystectomy. She has been ambulatory and tolerating clear liquids, plans for regular diet this morning. Still has nagging cough, no fevers or chills, some shortness of breath (worse than her baseline). Some desaturations noted by patient requiring NC O2 low flow, but she is afebrile. No bowel movement in 2 days. Passing flatus. Objective Vitals Vital Signs Date Time Temp Pulse Resp B/P (MAP) Pulse Ox O2 Delivery O2 Flow Rate FiO2 05/03/17 08:12 95 Nasal Cannula 3.00 05/03/17 08:00 98.6 74 17 111/65 (80) 97 05/03/17 03:55 94 Nasal Cannula 3.00 05/03/17 00:00 98.8 61 18 112/70 (84) 97 05/02/17 20:09 100 Nasal Cannula 4.00 05/02/17 20:00 96.3 62 18 100/64 (76) 98 05/02/17 16:06 98 05/02/17 16:00 97.1 60 16 107/77 (87) 97 05/02/17 12:00 97.1 64 18 131/78 (95) 99 I/O 05/02/17 05/02/17 05/02/17 05/03/17 05/03/17 05/03/17 07:00 15:00 23:00 07:00 15:00 23:00 Intake Total 750 ml 320 ml Balance 750 ml 320 ml Intake Oral 320 ml IV Total 750 ml # Voids 3 3 # Bowel Movements 0 Result Diagram: 05/02/17 0510 05/02/17 0510 Imaging Last Impressions Cholangiogram 05/01/17 0000 Signed Impressions: Service Date/Time: Monday, May 01, 2017 12:41 - CONCLUSION: No filling defects or obstruction. Frederic Lynne MD Chest X-Ray 05/01/17 0000 Signed Impressions: Service Date/Time: Monday, May 01, 2017 15:20 - CONCLUSION: Bibasilar patchiness consistent with probable pneumonia and/or atelectasis. Maxx Son MD GI Procedure 04/30/17 0000 Signed Impressions: Service Date/Time: April 10:25 - CONCLUSION: ERCP as above. Rene Arthur MD Cholangiopancreatography MRI 04/29/17 0000 Signed Impressions: Service Date/Time: Saturday, April 29, 2017 08:26 - CONCLUSION: Gall bladder wall thickening with pericholecystic inflammatory changes most characteristic of acute cholecystitis. There is a tiny filling defect in the distal common duct most characteristic of choledocholithiasis. Common bile duct dilated to 11 mm. August Thompson MD Gall Bladder Ultrasound 04/28/17 0000 Signed Impressions: Service Date/Time: Friday, April 28, 2017 07:40 - CONCLUSION: 1. Moderately distended gallbladder containing sludge. Sonographic findings of gallbladder wall thickening, pericholecystic fluid and sonographic Nickerson's sign are consistent with acute cholecystitis. 2. Common bile duct is distended up to 9 mm although a definitive stone or mass is not demonstrated in the visualized portions. Choledocholithiasis or distal obstructing lesion not imaged on this ultrasound cannot be entirely excluded. Cole Cordoba MD Objective Remarks GEN: Well-developed, well-nourished patient. No acute distress. Resting comfortably in bed. CV: Regular rate and rhythm without obvious murmurs LUNGS: Good air movement bilaterally with no accessory muscle use. Minimal bibasilar crackles present but without wheezing. GI: Abdomen soft. Postsurgical bandages over trocar sites noted without any discharge. She does have some mild tenderness to palpation globally. Bowel sounds present. EXT: No edema. No calf tenderness. NEURO/PSYCH: Awake, alert. Appropriate insight and judgment. Normal speech Procedures Laparoscopic cholecystectomy 05/[address] Clark Medications and IVs Inpatient Medications Acetaminophen (Tylenol) 650 mg Q6H PRN PO PAIN SCALE 1 TO 2 Last administered on 04/28/17 18:11; Start 04/28/17 at 12:00; Stop 05/01/17 at 15:43; Status DC Albuterol Sulfate (Albuterol Neb) 2.5 mg Q2HR NEB PRN INH SHORTNESS OF BREATH Last administered on 04/30/17at 13:42; Start 04/29/17 at 12:15 Albuterol/ Ipratropium (Duoneb Neb) 1 ampule Q6HR NEB INH Last administered on 05/03/17at 08:10; Start 04/29/17 at 16:00 Azithromycin (Zithromax) 500 mg DAILY PO ; Start 05/03/17 at 10:15; Stop at 09:01; Status UNV Benzonatate (Tessalon) 100 mg TID PRN PO cough Last administered on 05/02/17at 09:31; Start 04/28/17 at 17:00 Bisacodyl (Dulcolax Supp) 10 mg DAILY PRN RECTAL SEVERE CONSITIPATION; Start at 11:30 Budesonide/ Formoterol Fumarate (Symbicort 160-4.5 Mcg Inh) 2 puff Q12HR INH Last administered on 05/03/17at 09:52; Start 04/29/17 at 12:00 Ceftriaxone Sodium 1000 mg/ Sodium Chloride 100 ml @ 200 mls/hr ONCE ONCE IV ; Start 05/03/17 at 10:15; Stop 05/03/17 at 10:44; Status UNV Chlorhexidine Gluconate (Chlorhexidine 2% Cloth) 3 pack RETENTION SPECIALIST PRN TOPICAL SEE LABEL COMMENTS; Start 04/30/17 at 19:30; Stop 05/03/17 at 19:29 Enalaprilat (Vasotec Inj) 1.25 mg Q6H PRN IV PUSH SBP> OR = 180, DBP> OR = 100 ; Start 04/28/17 at 17:00 Fluoxetine HCl (PROzac) 40 mg DAILY PO Last administered on 05/03/17at 08:41; Start 04/28/17 at 13:00 Iohexol (OMNIPAQUE 300 INJ (Rad CT)) 16 ml ONCE ONCE OTHER Last administered on 05/01/17at 13:30; Start 05/01/17 at 14:05; Stop 05/01/17 at 14:07; Status DC Ketorolac Tromethamine (Toradol) 10 mg Q6H PO Last administered on 05/03/17at 04 :00; Start 05/02/17 at 11:00; Stop 05/07/17 at 10:59 Lactated Ringer's 1,000 ml @ 30 mls/hr Q24H PRN IV SEE LABEL COMMENTS; Start at 19:30; Stop 05/03/17 at 10:15; Status DC Lactulose (Lactulose Liq) 30 ml DAILY PRN PO SEVERE CONSITIPATION; Start at 11:30 Levofloxacin/ Dextrose 100 ml @ 100 mls/hr ONCE ONCE IV Last administered on 04/28/17at 06:38; Start 04/28/17 at 05:45; Stop 04/28/17 at 06:44; Status DC Magnesium Hydroxide (Milk Of Magnesia Liq) 30 ml Q12H PRN PO Mild constipation ; Start 04/29/17 at 11:30 Magnesium Citrate (Citroma Liq) 300 ml ONCE ONCE PO Last administered on at 15:36; Start 04/29/17 at 15:00; Stop 04/29/17 at 15:01; Status DC Metoprolol Tartrate (Lopressor) 25 mg RETENTION SPECIALIST PRN PO SEE LABEL COMMENTS; Start 04/30/17 at 19:30; Stop 05/03/17 at 19:29 Miscellaneous Information ALL NURSING DEPARTME... UNSCH PRN .XX SEE LABEL COMMENTS; Start 05/01/17 at 14:43; Stop 05/02/17 at 14:42; Status DC Morphine Sulfate (Morphine Inj) 4 mg Q3H PRN IV PUSH Pain 6-10;if unable to take PO Last administered on 05/02/17at 09:41; Start 04/28/17 at 12:00; Stop at 10:18; Status DC Naloxone HCl (Narcan Inj) 0.4 mg UNSCH PRN IV PUSH SEE LABEL COMMENTS; Start at 11:15 Ondansetron HCl (Zofran Inj) 4 mg Q6H PRN IVP NAUSEA OR VOMITING Last administered on 05/02/17at 11:12; Start 04/28/17 at 12:00 Potassium Bicarb/ Potassium Chloride (K-Lyte Cl Eff) 50 meq ONCE ONCE PO Last administered on 04/28/17at 06:38; Start 04/28/17 at 05:45; Stop 04/28/17 at 05:46; Status DC Potassium Chloride (KCl) 40 meq ONCE ONCE PO Last administered on 04/29/17at 13 :06; Start 04/29/17 at 12:15; Stop 04/29/17 at 12:16; Status DC Povidone Iodine (Betadine 5% Antisepsis Kit) 1 applic RETENTION SPECIALIST PRN EACH NARE SEE LABEL COMMENTS; Start 04/30/17 at 19:30; Stop 05/03/17 at 19:29 Senna/Docusate Sodium (Sylvie-Colace) 1 tab BID PO Last administered on at 08:41; Start 04/28/17 at 21:00 Sennosides (Senokot) 17.2 mg Q12H PRN PO Moderate constipation; Start 04/29/17 at 11:30 Sodium Chloride 500 ml @ 30 mls/hr [id number] PRN IV SEE LABEL COMMENTS; Start at 19:30; Stop 05/03/17 at 19:29 Sodium Chloride (NS Flush) 2 ml BID IV FLUSH Last administered on 05/02/17at 09: 28; Start 04/28/17 at 21:00 Tiotropium [place] (Spiriva Inh) 18 mcg DAILY INH Last administered on at 09:52; Start 04/29/17 at 09:00 Tramadol HCl (Ultram) 50 mg Q6H PRN PO pain 1-6 Last administered on 05/01/17at 22:16; Start 05/01/17 at 14:45; Stop 05/02/17 at 10:18; Status DC Triamcinolone Acetonide (Aristocort 0.1% Cream) 1 applic Q6HR TOPICAL Last administered on 04/30/17at 17:47; Start 04/28/17 at 18:00 Urinary Catheter: No Vascular Central Line Catheter: No A/P Assessment and Plan 31-year-old female with acute cholecystitis who is now status post laparoscopic cholecystectomy. Past medical history notable for COPD, JAISON, depression. Admitted to inpatient due to diagnosis of acute cholecystitis that was initially medically managed with pain medications and antibiotics. Status post MRCP on 04/29 and ERCP on 04/30. Definitive treatment with laparoscopic cholecystectomy performed 05/01. Patient does have evidence of possible pneumonia on chest x-ray postoperatively. Patient is afebrile, with no leukocytosis. She did have 4 days of Rocephin 04/29 thru 05/02. 05/03: will give another dose of Rocephin 05/03 and start azithromycin p.o. 500 mg daily and prednisone 40 mg p.o. daily on 05/03 to cover for possible COPD exacerbation. Discharge Planning Likely discharge 05/04 to home, pending surgical clearance. Discussed with Dr. Maria M Lafleur Problem List: (1) Acute cholecystitis ICD Codes: K81.0 - Acute cholecystitis Status: Acute Plan: Underwent laparoscopic cholecystectomy 05/01 that was uncomplicated. Liver enzymes somewhat improved today. No leukocytosis. Patient's anemia is stable. Postoperatively has been cleared surgically but pending respiratory status improvement. Hospital course: Ultrasound does show evidence of cholecystitis with gallbladder wall thickening , large gallbladder and enlarged bile duct, biliary sludge. MRCP 04/29 showing dilated common bile duct 11 mm suggestive of stone. Transaminitis downtrending postop Incentive spirometry and PT ordered to encourage patient to get out of bed and minimize risk of developing PNA. Goal is to wean off of IV pain meds in anticipation for discharge * morphine may be contributing to continued nausea General surgery consulted: appreciate recommendations and management Gastroenterology consulted: appreciate recommendations * ERCP performed on 04/30 with balloon sweeping of the duct and stone removal Medications: * Tylenol 650mg PO pain 1-2 * Toradol 10mg PO q6hr scheduled as pt reports she is unable to take [place]/ Percocet. Tramadol 50 mg every 6 hours as needed for pain is ordered. Patient has a prescription for tramadol in her chart per general surgery. * Bowel regimen to include scheduled Sylvie-Colace twice daily. She has refused suppositories of hospital stay * Levaquin 500 mg IV 1 in ED 04/29 * Rocephin 1 g IV daily, 04/29-05/03 * Zofran 4 mg IV as needed for nausea (2) Chronic obstructive lung disease Status: Acute Plan: CXR on admission normal. CXR 05/02 postop showed interval worsening of bibasilar patchiness consents to it with probable pneumonia and/or atelectasis Patient with continued cough and shortness of breath preoperatively and postoperatively. Chest x-ray showing evidence of possible pneumonia versus atelectasis bibasilarly. No fever, leukocytosis. Suspect viral etiology. However given history of COPD we will treat as COPD exacerbation starting on . She is already received Rocephin 4 days, will continue for 1 more day and start azithromycin for home. Likely will need 3 days of azithromycin. Prednisone 40 mg daily 5 days to be started on 05/03 as well. Obtain sputum culture if patient is able to provide. Hospital course: Chronic JAISON, COPD, asthma diagnoses. Med rec from outpatient setting include Spiriva, as needed albuterol. Was not on inhaled corticosteroid at home. * Continue Spiriva at home dose * Symbicort 160 mcg/formoterol 4.5 mcg at 2puffs twice daily started 04/29 * Duonebs every 6 hr scheduled, with Albuterol every 2 hr as needed for wheezing , SOB * Continue incentive spirometry * Continue Tessalon [place] for cough PRN (3) Chest pain ICD Codes: R07.9 - Chest pain, unspecified Status: Resolved Plan: Chest pain symptoms have continued to be resolved. Initially started after ERCP. Cardiac and respiratory eval unremarkable. -Suspect this was secondary to postprocedural pain and anxiety (4) Depression ICD Codes: F32.9 - Major depressive disorder, single episode, unspecified Status: Chronic Plan: Moderate persistent depression with current Prozac 40 mg daily use. No SI/HI ,will continue home dose. (5) Tobacco abuse ICD Codes: Z72.0 - Tobacco use Status: Chronic Plan: Patient states she has not had a cigarette in a while given her illness. Does not appear to require a nicotine patch at this time but will order as needed. Counseled on smoking cessation (6) Psoriasis Status: Chronic Plan: Chronic, stable, patient uses topical [id number] but states these did not work * Will give medium potency topical steroid triamcinolone acetonide cream 0.1% to be used twice daily (7) Anemia ICD Codes: D64.9 - Anemia, unspecified Status: Chronic Plan: Mild and stable, likely chronic in nature but with no acute symptoms. (8) Fluids/Electrolytes/Nutrition/Prophylaxis Status: Acute Plan: Fluids: none Electrolytes: monitor and replete as needed Nutrition: Clear DVT Prophylaxis: Patient is ambulatory. If patient has reduced ambulation will initiate Lovenox. Will order bilateral SCDs while in bed. GI Prophylaxis: None indicated, may consider PPI if symptoms suggest the need for this PRN anti-HTN: Vasotec 1.35mg IV PRN for SBP > 180/ and/or DBP > 100 Problem Qualifiers (1) Chronic obstructive lung disease: Qualified Codes: J44.1 - Chronic obstructive pulmonary disease with (acute) exacerbation (2) Depression: Qualified Codes: F33.1 - Major depressive disorder, recurrent, moderate Mirna Smith MD May 03, 2017 08:51
[2017-05-03 08:54] LABS: ALBUMIN 2.3 GM/DL (3.4-5.0); AST (GOT) 82 U/L (15-37); BICARBONATE 25.9 MEQ/L (21.0-32.0); BLOOD UREA NITROGEN 2 MG/DL (7-18); CALCIUM 8.1 MG/DL (8.5-10.1); CHLORIDE 107 MEQ/L (98-107); CREATININE 0.57 MG/DL (0.50-1.00); GLOMERULAR FILTRATION RATE 122 ML/MIN (>89); GLUCOSE,RANDOM 81 MG/DL (74-106); SODIUM (NA) 142 MEQ/L (136-145)
[2017-05-03 08:56] LABS: ALT (GPT) 71 U/L (10-53)
[2017-05-03 08:58] LABS: ALKALINE PHOSPHATASE 169 U/L (45-117); TOTAL BILIRUBIN ADULT 0.3 MG/DL (0.2-1.0); TOTAL PROTEIN 5.8 GM/DL (6.4-8.2)
[2017-05-03] MEDS: BUDESONIDE-FORMOTEROL 160/4.5 MCG INHALER INH SCH ×2 (09:52→20:17)
[2017-05-03] MEDS: TIOTROPIUM BROMIDE 18 MCG INH INH SCH (09:52)
[2017-05-03] MEDS ORDERED: TRIA.1%T TOPICAL (10:12)
[2017-05-03] MEDS ORDERED: IBUP-232 PO (10:12)
[2017-05-03] MEDS ORDERED: PROM25TA10 PO (10:12)
[2017-05-03] MEDS ORDERED: cefTRIAXone INJ 1,000 MG in SODIUM CHLORIDE 0.9% INJ 100 ML IV ONE (10:15)
--- NOTE | 2017-05-03 10:54 | HHI.PR ---
Subjective Subjective Notes seen with nc o2 off, pt appears comfortable, tolerating liq diet, ordered regular and are sending for it now, +flatus, pain controlled Objective Vitals/I&O Vital Signs Date Time Temp Pulse Resp B/P (MAP) Pulse Ox O2 Delivery O2 Flow Rate FiO2 05/03/17 08:12 95 Nasal Cannula 3.00 05/03/17 08:00 98.6 74 17 111/65 (80) Labs Laboratory Tests Test 05/03/17 08:08 Blood Urea Nitrogen 2 Creatinine 0.57 Random Glucose 81 Total Protein 5.8 Albumin 2.3 Calcium Level 8.1 Alkaline Phosphatase 169 Aspartate Amino Transf (AST/SGOT) 82 Alanine Aminotransferase (ALT/SGPT) 71 Total Bilirubin 0.3 Sodium Level 142 Potassium Level 3.2 Chloride Level 107 Carbon Dioxide Level 25.9 Anion Gap 9 Estimat Glomerular Filtration Rate 122 Date/Time Source Procedure Growth Status 04/28/17 04:55 Nasal Washing Influenza Types A,B Antigen (PIO) - Final NEGATIVE FOR FLU A AND B ANTIGEN.... Complete Radiology Last 48 hours Impressions Chest X-Ray 04/28/17 0434 Signed Impressions: Service Date/Time: Friday, April 28, 2017 04:46 - CONCLUSION: No acute disease. Jerson Lambert Jr., MD Gall Bladder Ultrasound 04/28/17 0000 Signed Impressions: Service Date/Time: Friday, April 28, 2017 07:40 - CONCLUSION: 1. Moderately distended gallbladder containing sludge. Sonographic findings of gallbladder wall thickening, pericholecystic fluid and sonographic Nickerson's sign are consistent with acute cholecystitis. 2. Common bile duct is distended up to 9 mm although a definitive stone or mass is not demonstrated in the visualized portions. Choledocholithiasis or distal obstructing lesion not imaged on this ultrasound cannot be entirely excluded. Cole Cordoba MD Lungs: Clear, Wheezes (scant) Abdomen: Other (soft incisional tenderness, c/d/i) A/P Assessment and Plan 31 year old female acute cholecystitis; choledocholithiasis S/P lap meggan with IOC POD #2, doing well from surgery standpoint Advance diet pulmonary status improving d/c planning, will s/o f/u with Jose Jenkins MD May 03, 2017 10:54
[2017-05-03] MEDS: predniSONE 20 MG TAB PO SCH (11:00)
[2017-05-03] MEDS: AZITHROMYCIN 250 MG TAB PO SCH (11:00)
[2017-05-03] MEDS: TRIAMCINOLONE ACETONIDE 0.1% CREAM 15 GM TOPICAL SCH ×3 (11:01→23:27)
[2017-05-04] VITALS: BP 176/97; PULSE 55; RESP 20; TEMP 98.6; O2SAT 97
[2017-05-04] MEDS: RESP: ALBUTEROL 2.5 MG/3 ML NEB (PRN) INH (00:39)
[2017-05-04 00:40] VITALS: O2SAT 98
[2017-05-04] MEDS: ONDANSETRON ODT 4 MG TAB PO PRN ×2 (00:56→08:55)
[2017-05-04 04:00] VITALS: BP 147/81; PULSE 59; RESP 18; TEMP 98.2; O2SAT 97
[2017-05-04] MEDS: TRIAMCINOLONE ACETONIDE 0.1% CREAM 15 GM TOPICAL SCH (04:59)
[2017-05-04] MEDS: KETOROLAC TROMETHAMINE 10 MG TAB PO SCH ×2 (04:59→10:28)
[2017-05-04 05:50] LABS: AUTOMATED NEUTROPHIL # 1.9 TH/MM3 (1.8-7.7); BASOPHIL % 0.2 % (0.0-2.0); EOSINOPHIL # 0.1 TH/MM3 (0-0.4); HEMOGLOBIN 9.8 GM/DL (11.6-15.3); LYMPH % 41.9 % (9.0-44.0); LYMPHOCYTE # 1.7 TH/MM3 (1.0-4.8); MEAN CELL VOLUME 87.1 FL (80.0-100.0); MEAN CORPUSCULAR HEMOGLOBIN 29.4 PG (27.0-34.0); MEAN CORPUSCULAR HGB CONC 33.8 % (32.0-36.0); MEAN PLATELET VOLUME 9.5 FL (7.0-11.0); MONO % 7.8 % (0.0-8.0); MONOCYTE # 0.3 TH/MM3 (0-0.9); NEUT % 48.1 % (16.0-70.0); PLATELET COUNT 178 TH/MM3 (150-450); RED BLOOD COUNT 3.33 MIL/MM3 (4.00-5.30); RED CELL DISTRIBUTION WIDTH 14.8 % (11.6-17.2); WHITE BLOOD COUNT 4.1 TH/MM3 (4.0-11.0)
[2017-05-04 06:02] LABS: ALBUMIN 2.5 GM/DL (3.4-5.0); ALT (GPT) 63 U/L (10-53); AST (GOT) 42 U/L (15-37); BICARBONATE 27.5 MEQ/L (21.0-32.0); BLOOD UREA NITROGEN 3 MG/DL (7-18); CALCIUM 8.3 MG/DL (8.5-10.1); CHLORIDE 108 MEQ/L (98-107); CREATININE 0.54 MG/DL (0.50-1.00); GLOMERULAR FILTRATION RATE 130 ML/MIN (>89); GLUCOSE,RANDOM 87 MG/DL (74-106); SODIUM (NA) 144 MEQ/L (136-145)
[2017-05-04 06:04] LABS: ALKALINE PHOSPHATASE 170 U/L (45-117); TOTAL BILIRUBIN ADULT 0.3 MG/DL (0.2-1.0); TOTAL PROTEIN 6.5 GM/DL (6.4-8.2)
[2017-05-04 08:00] VITALS: BP 134/81; PULSE 56; RESP 19; TEMP 98.2; O2SAT 98
[2017-05-04] MEDS ORDERED: POTASSIUM CHLORIDE 20 MEQ CONTROLLED RELEASE TAB PO ONE (08:30)
[2017-05-04] MEDS ORDERED: AZIT250T3 PO (08:42)
[2017-05-04] MEDS ORDERED: KETO10 PO (08:42)
[2017-05-04] MEDS ORDERED: PERI PO (08:42)
[2017-05-04] MEDS ORDERED: PRED20 PO (08:42)
--- NOTE | 2017-05-04 08:43 | HHI.DCPOC ---
Discharge Care Plan Diagnosis: (1) Acute cholecystitis (2) COPD with acute bronchitis Goals to Promote Your Health * To prevent worsening of your condition and complications * To maintain your health at the optimal level Directions to Meet Your Goals Take your medications as prescribed Follow your dietary instruction Follow activity as directed Keep your appointments as scheduled Take your immunizations and boosters as scheduled If your symptoms worsen call your PCP, if no PCP go to Urgent Care Center or Emergency Room Smoking is Dangerous to Your Health. Avoid second hand smoke Call the 24-hour hour crisis hotline for domestic abuse at Mirna Smith MD May 04, 2017 08:43
--- NOTE | 2017-05-04 08:50 | HHI.FPPN ---
Subjective Remarks Patient was seen and examined this morning. Some mild nausea, no vomiting. Abdominal pain is stable. Passing flatus, no BM in 2 days. Has taken Lactulose and Sylvie-colace, will discharge with both. She is using Toradol which controls pain well. Ambulating and eating without difficulty. Eager to go home. (Mirna Smith MD) Objective Vitals Vital Signs Date Time Temp Pulse Resp B/P (MAP) Pulse Ox O2 Delivery O2 Flow Rate FiO2 05/04/17 08:00 98.2 56 19 134/81 (98) 98 05/04/17 04:00 98.2 59 18 147/81 (103) 97 05/04/17 03:49 Room Air 05/04/17 00:40 98 Nasal Cannula 2.00 05/04/17 00:00 98.6 55 20 176/97 (123) 97 05/03/17 20:00 98.2 58 20 153/72 (99) 96 05/03/17 16:00 98.5 71 17 123/68 (86) 96 05/03/17 12:00 97.8 63 17 127/76 (93) 98 I/O 05/03/17 05/03/17 05/03/17 05/04/17 05/04/17 05/04/17 07:00 15:00 23:00 07:00 15:00 23:00 Intake Total 320 ml 1164 ml 360 ml Balance 320 ml 1164 ml 360 ml Intake Oral 320 ml 1164 ml 360 ml IV Total 0 ml # Voids 3 4 3 # Bowel Movements 0 0 0 (Mirna Smith MD) Result Diagram: 05/04/17 0455 05/04/17 0455 Imaging Last Impressions Cholangiogram 05/01/17 0000 Signed Impressions: Service Date/Time: Monday, May 01, 2017 12:41 - CONCLUSION: No filling defects or obstruction. Frederic Lynne MD Chest X-Ray 05/01/17 0000 Signed Impressions: Service Date/Time: Monday, May 01, 2017 15:20 - CONCLUSION: Bibasilar patchiness consistent with probable pneumonia and/or atelectasis. Maxx Son MD GI Procedure 04/30/17 0000 Signed Impressions: Service Date/Time: April 10:25 - CONCLUSION: ERCP as above. Rene Arthur MD Cholangiopancreatography MRI 04/29/17 0000 Signed Impressions: Service Date/Time: Saturday, April 29, 2017 08:26 - CONCLUSION: Gall bladder wall thickening with pericholecystic inflammatory changes most characteristic of acute cholecystitis. There is a tiny filling defect in the distal common duct most characteristic of choledocholithiasis. Common bile duct dilated to 11 mm. August Thompson MD Gall Bladder Ultrasound 04/28/17 0000 Signed Impressions: Service Date/Time: Friday, April 28, 2017 07:40 - CONCLUSION: 1. Moderately distended gallbladder containing sludge. Sonographic findings of gallbladder wall thickening, pericholecystic fluid and sonographic Nickerson's sign are consistent with acute cholecystitis. 2. Common bile duct is distended up to 9 mm although a definitive stone or mass is not demonstrated in the visualized portions. Choledocholithiasis or distal obstructing lesion not imaged on this ultrasound cannot be entirely excluded. Cole Cordoba MD Objective Remarks GEN: Well-developed, well-nourished patient. No acute distress. Resting comfortably in bed. CV: Regular rate and rhythm without obvious murmurs LUNGS: Good air movement bilaterally with no accessory muscle use. Minimal bibasilar crackles present but without wheezing. GI: Abdomen soft. Postsurgical bandages over trocar sites noted without any discharge. She does have some mild tenderness to palpation globally. Bowel sounds present. EXT: No edema. No calf tenderness. NEURO/PSYCH: Awake, alert. Appropriate insight and judgment. Normal speech Procedures Laparoscopic cholecystectomy 05/[address] Clark Medications and IVs Inpatient Medications Acetaminophen (Tylenol) 650 mg Q6H PRN PO PAIN SCALE 1 TO 2 Last administered on 04/28/17at 18:11; Start 04/28/17 at 12:00; Stop 05/01/17 at 15:43; Status DC Albuterol Sulfate (Albuterol Neb) 2.5 mg Q2HR NEB PRN INH SHORTNESS OF BREATH Last administered on 05/04/17at 00:39; Start 04/29/17 at 12:15 Albuterol/ Ipratropium (Duoneb Neb) 1 ampule Q6HR NEB INH Last administered on 05/03/17at 08:10; Start 04/29/17 at 16:00; Stop 05/03/17 at 15:59; Status DC Azithromycin (Zithromax) 500 mg Q24H PO Last administered on 05/03/17at 11:00; Start 05/03/17 at 11:00; Stop 05/07/17 at 11:01 Benzonatate (Tessalon) 100 mg TID PRN PO cough Last administered on 05/02/17at 09:31; Start 04/28/17 at 17:00 Bisacodyl (Dulcolax Supp) 10 mg DAILY PRN RECTAL SEVERE CONSITIPATION; Start at 11:30 Budesonide/ Formoterol Fumarate (Symbicort 160-4.5 Mcg Inh) 2 puff Q12HR INH Last administered on 05/03/17at 20:17; Start 04/29/17 at 12:00 Ceftriaxone Sodium 1000 mg/ Sodium Chloride 100 ml @ 200 mls/hr ONCE ONCE IV ; Start 05/03/17 at 10:15; Stop 05/03/17 at 10:44; Status DC Chlorhexidine Gluconate (Chlorhexidine 2% Cloth) 3 pack PHOTOVOLTAIC TECHNICIAN PRN TOPICAL SEE LABEL COMMENTS; Start 04/30/17 at 19:30; Stop 05/03/17 at 19:29; Status DC Enalaprilat (Vasotec Inj) 1.25 mg Q6H PRN IV PUSH SBP> OR = 180, DBP> OR = 100 ; Start 04/28/17 at 17:00 Fluoxetine HCl (PROzac) 40 mg DAILY PO Last administered on 05/03/17at 08:41; Start 04/28/17 at 13:00 Iohexol (OMNIPAQUE 300 INJ (Rad CT)) 16 ml ONCE ONCE OTHER Last administered on 05/01/17at 13:30; Start 05/01/17 at 14:05; Stop 05/01/17 at 14:07; Status DC Ketorolac Tromethamine (Toradol) 10 mg Q6H PO Last administered on 05/04/17at 04 :59; Start 05/02/17 at 11:00; Stop 05/07/17 at 10:59 Lactated Ringer's 1,000 ml @ 30 mls/hr Q24H PRN IV SEE LABEL COMMENTS; Start at 19:30; Stop 05/03/17 at 10:15; Status DC Lactulose (Lactulose Liq) 30 ml DAILY PRN PO SEVERE CONSITIPATION Last administered on 05/04/17at 01:03; Start 04/29/17 at 11:30 Levofloxacin/ Dextrose 100 ml @ 100 mls/hr ONCE ONCE IV Last administered on 04/28/17at 06:38; Start 04/28/17 at 05:45; Stop 04/28/17 at 06:44; Status DC Magnesium Hydroxide (Milk Of Magnesia Liq) 30 ml Q12H PRN PO Mild constipation ; Start 04/29/17 at 11:30 Magnesium Citrate (Citroma Liq) 300 ml ONCE ONCE PO Last administered on at 15:36; Start 04/29/17 at 15:00; Stop 04/29/17 at 15:01; Status DC Metoprolol Tartrate (Lopressor) 25 mg PHOTOVOLTAIC TECHNICIAN PRN PO SEE LABEL COMMENTS; Start 04/30/17 at 19:30; Stop 05/03/17 at 19:29; Status DC Miscellaneous Information ALL NURSING DEPARTME... UNSCH PRN .XX SEE LABEL COMMENTS; Start 05/01/17 at 14:43; Stop 05/02/17 at 14:42; Status DC Morphine Sulfate (Morphine Inj) 4 mg Q3H PRN IV PUSH Pain 6-10;if unable to take PO Last administered on 05/02/17at 09:41; Start 04/28/17 at 12:00; Stop at 10:18; Status DC Naloxone HCl (Narcan Inj) 0.4 mg UNSCH PRN IV PUSH SEE LABEL COMMENTS; Start at 11:15 Ondansetron HCl (Zofran Odt) 4 mg Q6H PRN PO nausea/vomiting Last administered on 05/04/17at 00:56; Start 05/04/17 at 00:45 Ondansetron HCl (Zofran Inj) 4 mg Q6H PRN IVP NAUSEA OR VOMITING Last administered on 05/02/17at 11:12; Start 04/28/17 at 12:00; Stop 05/04/17 at 00:41 ; Status DC Potassium Bicarb/ Potassium Chloride (K-Lyte Cl Eff) 50 meq ONCE ONCE PO Last administered on 04/28/17at 06:38; Start 04/28/17 at 05:45; Stop 04/28/17 at 05:46; Status DC Potassium Chloride (KCl) 40 meq ONCE ONCE PO ; Start 05/04/17 at 08:30; Stop at 08:31; Status DC Povidone Iodine (Betadine 5% Antisepsis Kit) 1 applic PHOTOVOLTAIC TECHNICIAN PRN EACH NARE SEE LABEL COMMENTS; Start 04/30/17 at 19:30; Stop 05/03/17 at 19:29; Status DC Prednisone (Deltasone) 40 mg DAILY PO Last administered on 05/03/17at 11:00; Start 05/03/17 at 10:45 Senna/Docusate Sodium (Sylvie-Colace) 1 tab BID PO Last administered on at 20:15; Start 04/28/17 at 21:00 Sennosides (Senokot) 17.2 mg Q12H PRN PO Moderate constipation; Start 04/29/17 at 11:30 Sodium Chloride 500 ml @ 30 mls/hr [id number] PRN IV SEE LABEL COMMENTS; Start at 19:30; Stop 05/03/17 at 19:29; Status DC Sodium Chloride (NS Flush) 2 ml BID IV FLUSH Last administered on 05/02/17at 09: 28; Start 04/28/17 at 21:00 Tiotropium Muse (Spiriva Inh) 18 mcg DAILY INH Last administered on at 09:52; Start 04/29/17 at 09:00 Tramadol HCl (Ultram) 50 mg Q6H PRN PO pain 1-6 Last administered on 05/01/17at 22:16; Start 05/01/17 at 14:45; Stop 05/02/17 at 10:18; Status DC Triamcinolone Acetonide (Aristocort 0.1% Cream) 1 applic Q6HR TOPICAL Last administered on 05/03/17at 23:27; Start 04/28/17 at 18:00 (Mirna Smith MD) Urinary Catheter: No (Mirna Smith MD) Vascular Central Line Catheter: No (Mirna Smith MD) A/P Assessment and Plan 31-year-old female with acute cholecystitis who is now status post laparoscopic cholecystectomy. Past medical history notable for COPD, JAISON, depression. Admitted to inpatient due to diagnosis of acute cholecystitis that was initially medically managed with pain medications and antibiotics. Status post MRCP on 04/29 and ERCP on 04/30. Definitive treatment with laparoscopic cholecystectomy performed 05/01. Patient does have evidence of possible pneumonia on chest x-ray postoperatively which restart COPD exacerbation management with prednisone, Zithromax, continued course of Rocephin which has now been finished. She will go home on Zithromax and prednisone to complete 5 day course. Discharge Planning Discharge to home today. Patient to continue azithromycin and prednisone for a total of 4 days. She will f/u with Dr. Clark ~05/07 and will follow up with PCP (Dr. Hailee Smith) in approximately 1 week. Patient is counseled to take Toradol scheduled, with Tramadol for breakthrough pain. Continue stool softeners. Discussed with Dr. Maria M Lafleur, seen with Dr. Magaña (Mirna Smith MD) Attending Attestation Patient seen and examined. Case reviewed and discussed with the resident team. She reports that she did have a BM this morning, and she is very pleased to go home and see her children. Sitting up at the bedside, good color, no apparent distress. Agree with plan of care as discussed with me and documented in the resident note. (Maria M Lafleur MD) Problem List: (1) Acute cholecystitis ICD Codes: K81.0 - Acute cholecystitis Status: Acute Plan: Underwent laparoscopic cholecystectomy 05/01 that was uncomplicated. Liver enzymes somewhat improved today. No leukocytosis. Patient's anemia is stable. Postoperatively has been cleared surgically Hospital course: Ultrasound showed evidence of cholecystitis with gallbladder wall thickening, large gallbladder and enlarged bile duct, biliary sludge. MRCP 04/29 showing dilated common bile duct 11 mm suggestive of stone. Transaminitis downtrending postop Incentive spirometry and PT ordered to encourage patient to get out of bed and minimize risk of developing PNA. Goal is to wean off of IV pain meds in anticipation for discharge * morphine may be contributing to continued nausea General surgery consulted: appreciate recommendations and management Gastroenterology consulted: appreciate recommendations * ERCP performed on 04/30 with balloon sweeping of the duct and stone removal Inpatient Medications: * Tylenol 650mg PO pain 1-2 * Toradol 10mg PO q6hr scheduled as pt reports she is unable to take [place]/ Percocet. Tramadol 50 mg every 6 hours as needed for pain is ordered. Patient has a prescription for tramadol in her chart per general surgery. * Bowel regimen to include scheduled Sylvie-Colace twice daily. She has refused suppositories of hospital stay * Levaquin 500 mg IV 1 in ED 04/29 * Rocephin 1 g IV daily, 04/29-05/03 * Zofran 4 mg IV as needed for nausea (2) Chronic obstructive lung disease Status: Acute Plan: CXR on admission normal. CXR 05/02 postop showed interval worsening of bibasilar patchiness consents to it with probable pneumonia and/or atelectasis Patient with continued cough and shortness of breath preoperatively and postoperatively. Chest x-ray showing evidence of possible pneumonia versus atelectasis bibasilarly. No fever, leukocytosis. Suspect viral etiology. However given history of COPD we will treat as COPD exacerbation starting on . She is already received Rocephin 4 days, will continue for 1 more day and start azithromycin for home. Will d/c with 5 days of azithromycin. Prednisone 40 mg daily 5 days to be started on 05/03 as well. Obtain sputum culture if patient is able to provide. Hospital course: Chronic JAISON, COPD, asthma diagnoses. Med rec from outpatient setting include Spiriva, as needed albuterol. Was not on inhaled corticosteroid at home. * Continue Spiriva at home dose * Symbicort 160 mcg/formoterol 4.5 mcg at 2puffs twice daily started 04/29 * Duonebs every 6 hr scheduled, with Albuterol every 2 hr as needed for wheezing , SOB * Continue incentive spirometry * Continue Tessalon Perrles for cough PRN (3) Chest pain ICD Codes: R07.9 - Chest pain, unspecified Status: Resolved Plan: Chest pain symptoms have continued to be resolved. Initially started after ERCP. Cardiac and respiratory eval unremarkable. -Suspect this was secondary to postprocedural pain and anxiety (4) Depression ICD Codes: F32.9 - Major depressive disorder, single episode, unspecified Status: Chronic Plan: Moderate persistent depression with current Prozac 40 mg daily use. No SI/HI ,will continue home dose. (5) Tobacco abuse ICD Codes: Z72.0 - Tobacco use Status: Chronic Plan: Patient states she has not had a cigarette in a while given her illness. Does not appear to require a nicotine patch at this time but will order as needed. Counseled on smoking cessation (6) Psoriasis Status: Chronic Plan: Chronic, stable, patient uses topical [id number] but states these did not work * Will give medium potency topical steroid triamcinolone acetonide cream 0.1% to be used twice daily (7) Anemia ICD Codes: D64.9 - Anemia, unspecified Status: Chronic Plan: Mild and stable, likely chronic in nature but with no acute symptoms. (8) Fluids/Electrolytes/Nutrition/Prophylaxis Status: Acute Plan: Fluids: none Electrolytes: monitor and replete as needed Nutrition: Clear DVT Prophylaxis: Patient is ambulatory. If patient has reduced ambulation will initiate Lovenox. Will order bilateral SCDs while in bed. GI Prophylaxis: None indicated, may consider PPI if symptoms suggest the need for this PRN anti-HTN: Vasotec 1.35mg IV PRN for SBP > 180/ and/or DBP > 100 (Mirna Smtih MD) Problem Qualifiers (1) Chronic obstructive lung disease: Qualified Codes: J44.1 - Chronic obstructive pulmonary disease with (acute) exacerbation (2) Depression: Qualified Codes: F33.1 - Major depressive disorder, recurrent, moderate Mirna Smith MD May 04, 2017 08:50 Maria M Lafleur MD May 04, 2017 12:21
[2017-05-04] MEDS: FLUoxetine HCL 20 MG CAP PO SCH (08:55)
[2017-05-04] MEDS: predniSONE 20 MG TAB PO SCH (08:55)
[2017-05-04] MEDS: SODIUM CHLORIDE 0.9% FLUSH 10 ML FLUSH IV FLUSH SCH (08:56)
[2017-05-04] MEDS: TIOTROPIUM BROMIDE 18 MCG INH INH SCH (08:56)
[2017-05-04] MEDS: BUDESONIDE-FORMOTEROL 160/4.5 MCG INHALER INH SCH (08:56)
[2017-05-04] MEDS: DOCUSATE SODIUM 50 MG/SENNA 8.6 MG TAB PO SCH (08:56)
[2017-05-04] MEDS ORDERED: NEBULIZER1 MI1 INH (09:29)
[2017-05-04] MEDS ORDERED: NEBUMIS9 (09:29)
--- NOTE | 2017-05-04 09:54 | HHI.PR ---
Subjective Subjective Notes Breathing better Pain controlled Feels comfortable going home Objective Vitals/I&O Vital Signs Date Time Temp Pulse Resp B/P (MAP) Pulse Ox O2 Delivery O2 Flow Rate FiO2 05/04/17 08:00 98.2 56 19 134/81 (98) 98 05/04/17 03:49 Room Air 05/04/17 00:40 2.00 Labs Laboratory Tests Test 05/04/17 04:55 White Blood Count 4.1 Red Blood Count 3.33 Hemoglobin 9.8 Hematocrit 29.0 Mean Corpuscular Volume 87.1 Mean Corpuscular Hemoglobin 29.4 Mean Corpuscular Hemoglobin Concent 33.8 Red Cell Distribution Width 14.8 Platelet Count 178 Mean Platelet Volume 9.5 Neutrophils (%) (Auto) 48.1 Lymphocytes (%) (Auto) 41.9 Monocytes (%) (Auto) 7.8 Eosinophils (%) (Auto) 2.0 Basophils (%) (Auto) 0.2 Neutrophils # (Auto) 1.9 Lymphocytes # (Auto) 1.7 Monocytes # (Auto) 0.3 Eosinophils # (Auto) 0.1 Basophils # (Auto) 0.0 CBC Comment DIFF FINAL Differential Comment Blood Urea Nitrogen 3 Creatinine 0.54 Random Glucose 87 Total Protein 6.5 Albumin 2.5 Calcium Level 8.3 Alkaline Phosphatase 170 Aspartate Amino Transf (AST/SGOT) 42 Alanine Aminotransferase (ALT/SGPT) 63 Total Bilirubin 0.3 Sodium Level 144 Potassium Level 3.0 Chloride Level 108 Carbon Dioxide Level 27.5 Anion Gap 9 Estimat Glomerular Filtration Rate 130 Date/Time Source Procedure Growth Status 04/28/17 04:55 Nasal Washing Influenza Types A,B Antigen (PIO) - Final NEGATIVE FOR FLU A AND B ANTIGEN.... Complete Radiology Last 48 hours Impressions Chest X-Ray 04/28/17 0434 Signed Impressions: Service Date/Time: Friday, April 28, 2017 04:46 - CONCLUSION: No acute disease. Jerson Lambert Jr., MD Gall Bladder Ultrasound 04/28/17 0000 Signed Impressions: Service Date/Time: Friday, April 28, 2017 07:40 - CONCLUSION: 1. Moderately distended gallbladder containing sludge. Sonographic findings of gallbladder wall thickening, pericholecystic fluid and sonographic Nickerson's sign are consistent with acute cholecystitis. 2. Common bile duct is distended up to 9 mm although a definitive stone or mass is not demonstrated in the visualized portions. Choledocholithiasis or distal obstructing lesion not imaged on this ultrasound cannot be entirely excluded. Cole Cordoba MD Cardiovascular: Regular Lungs: Clear Abdomen: Non-distended, Other (lap sites c/d/i ), Post-op tenderness Extremities: No edema A/P Assessment and Plan 31 year old female acute cholecystitis; choledocholithiasis -POD3 lap meggan -Pain controlled -Breathing stable -GS clear for DC -Follow up May 07 Attending Note - Dr. Eduardo Carter strips with minimal old drainage; tolerating diet Stable for discharge from stdpt The exam, history, and the medical decision-making described in the above note were completed with the assistance of the mid-level provider. I reviewed and agree with the findings presented. I attest that I had a [id number] encounter with the patient on the same day, and personally performed and documented my assessment and findings in the medical record. Sarah Haider/First Margot NGUYEN May 04, 2017 09:54 Edgardo Clark MD May 07, 2017 17:34
[2017-05-04] MEDS: AZITHROMYCIN 250 MG TAB PO SCH (10:27)
[2017-05-04] MEDS ORDERED: VIST25CA PO (10:30)
--- NOTE | 2017-05-04 11:43 | HHI.DS ---
Discharge Summary Admission Date Apr 28, 2017 at 10:47 Discharge Date: May 04, 2017 Admitting Diagnosis Acute cholecystitis (1) Acute cholecystitis Diagnosis: Principal Plan: Underwent laparoscopic cholecystectomy 05/01 that was uncomplicated. Liver enzymes somewhat improved today. No leukocytosis. Patient's anemia is stable. Postoperatively has been cleared surgically Hospital course: Ultrasound showed evidence of cholecystitis with gallbladder wall thickening, large gallbladder and enlarged bile duct, biliary sludge. MRCP 04/29 showing dilated common bile duct 11 mm suggestive of stone. Transaminitis downtrending postop Incentive spirometry and PT ordered to encourage patient to get out of bed and minimize risk of developing PNA. Goal is to wean off of IV pain meds in anticipation for discharge * morphine may be contributing to continued nausea General surgery consulted: appreciate recommendations and management Gastroenterology consulted: appreciate recommendations * ERCP performed on 04/30 with balloon sweeping of the duct and stone removal Inpatient Medications: * Tylenol 650mg PO pain 1-2 * Toradol 10mg PO q6hr scheduled as pt reports she is unable to take [place]/ Percocet. Tramadol 50 mg every 6 hours as needed for pain is ordered. Patient has a prescription for tramadol in her chart per general surgery. * Bowel regimen to include scheduled Sylvie-Colace twice daily. She has refused suppositories of hospital stay * Levaquin 500 mg IV 1 in ED 04/29 * Rocephin 1 g IV daily, 04/29-05/03 * Zofran 4 mg IV as needed for nausea ICD Codes: K81.0 - Acute cholecystitis Status: Acute (2) Chronic obstructive lung disease Diagnosis: Secondary Plan: CXR on admission normal. CXR 05/02 postop showed interval worsening of bibasilar patchiness consents to it with probable pneumonia and/or atelectasis Patient with continued cough and shortness of breath preoperatively and postoperatively. Chest x-ray showing evidence of possible pneumonia versus atelectasis bibasilarly. No fever, leukocytosis. Suspect viral etiology. However given history of COPD we will treat as COPD exacerbation starting on . She is already received Rocephin 4 days, will continue for 1 more day and start azithromycin for home. Will d/c with 5 days of azithromycin. Prednisone 40 mg daily 5 days to be started on 05/03 as well. Obtain sputum culture if patient is able to provide. Hospital course: Chronic JAISON, COPD, asthma diagnoses. Med rec from outpatient setting include Spiriva, as needed albuterol. Was not on inhaled corticosteroid at home. * Continue Spiriva at home dose * Symbicort 160 mcg/formoterol 4.5 mcg at 2puffs twice daily started 04/29 * Duonebs every 6 hr scheduled, with Albuterol every 2 hr as needed for wheezing , SOB * Continue incentive spirometry * Continue Tessalon Perrles for cough PRN Status: Acute (3) Chest pain Diagnosis: Secondary Plan: Chest pain symptoms have continued to be resolved. Initially started after ERCP. Cardiac and respiratory eval unremarkable. -Suspect this was secondary to postprocedural pain and anxiety ICD Codes: R07.9 - Chest pain, unspecified Status: Resolved (4) Depression Diagnosis: Secondary Plan: Moderate persistent depression with current Prozac 40 mg daily use. No SI/HI ,will continue home dose. ICD Codes: F32.9 - Major depressive disorder, single episode, unspecified Status: Chronic (5) Tobacco abuse Diagnosis: Secondary Plan: Patient states she has not had a cigarette in a while given her illness. Does not appear to require a nicotine patch at this time but will order as needed. Counseled on smoking cessation ICD Codes: Z72.0 - Tobacco use Status: Chronic (6) Psoriasis Plan: Chronic, stable, patient uses topical [id number] but states these did not work * Will give medium potency topical steroid triamcinolone acetonide cream 0.1% to be used twice daily Status: Chronic (7) Anemia Plan: Mild and stable, likely chronic in nature but with no acute symptoms. ICD Codes: D64.9 - Anemia, unspecified Status: Chronic Consultants GI, General Surgery Procedures Laparoscopic cholecystectomy 05/[address] Clark Brief History Patient is a 31 year old female with history significant for asthma, COPD, JAISON, depression who presents to ED with abdominal pain for last 3 weeks. She notes that she was recently in [place], coming back on 04/26. She did have an EVD evaluation in [place] showing gastritis without scope. She does note sick contacts to include her children and she has had a cough from a personal URI for the last 6 weeks. She notes that she had a fever of approximately 103 Fahrenheit yesterday. She does note that fatty foods increase the abdominal pain which is located on the lower right abdomen as well as across the entire upper half of the abdomen. She endorses nausea and vomiting, nonbloody. She has nonproductive cough. She has mild fever on initial evaluation and is noted to have mild hypokalemia. White count is normal. Last menstrual period 04/15, usually normal. US confirming cholecystitis performed in the ED: Showing gallbladder sludge, gallbladder wall thickening, distention of the gallbladder and bile duct. General surgery already consulted and following, appreciate recommendations. CBC/BMP: 05/04/17 0455 05/04/17 0455 Significant Findings Laboratory Tests Test 05/02/17 05:10 05/03/17 08:08 05/04/17 04:55 Red Blood Count 3.28 MIL/MM3 (4.00-5.30) 3.33 MIL/MM3 (4.00-5.30) Hemoglobin 9.8 GM/DL (11.6-15.3) 9.8 GM/DL (11.6-15.3) Hematocrit 29.1 % (35.0-46.0) 29.0 % (35.0-46.0) Blood Urea Nitrogen 2 MG/DL (7-18) 2 MG/DL (7-18) 3 MG/DL (7-18) Total Protein 6.0 GM/DL (6.4-8.2) 5.8 GM/DL (6.4-8.2) Albumin 2.3 GM/DL (3.4-5.0) 2.3 GM/DL (3.4-5.0) 2.5 GM/DL (3.4-5.0) Calcium Level 7.8 MG/DL (8.5-10.1) 8.1 MG/DL (8.5-10.1) 8.3 MG/DL (8.5-10.1) Alkaline Phosphatase 177 U/L (45-117) 169 U/L (45-117) 170 U/L (45-117) Aspartate Amino Transf (AST/SGOT) 125 U/L (15-37) 82 U/L (15-37) 42 U/L (15-37) Alanine Aminotransferase (ALT/SGPT) 80 U/L (10-53) 71 U/L (10-53) 63 U/L (10-53) Chloride Level 109 MEQ/L (98-107) 108 MEQ/L (98-107) Potassium Level 3.2 MEQ/L (3.5-5.1) 3.0 MEQ/L (3.5-5.1) Imaging Last Impressions Cholangiogram 05/01/17 0000 Signed Impressions: Service Date/Time: Monday, May 01, 2017 12:41 - CONCLUSION: No filling defects or obstruction. Frederic Lynne MD Chest X-Ray 05/01/17 0000 Signed Impressions: Service Date/Time: Monday, May 01, 2017 15:20 - CONCLUSION: Bibasilar patchiness consistent with probable pneumonia and/or atelectasis. Maxx Son MD GI Procedure 04/30/17 0000 Signed Impressions: Service Date/Time: April 10:25 - CONCLUSION: ERCP as above. Rene Arthur MD Cholangiopancreatography MRI 04/29/17 0000 Signed Impressions: Service Date/Time: Saturday, April 29, 2017 08:26 - CONCLUSION: Gall bladder wall thickening with pericholecystic inflammatory changes most characteristic of acute cholecystitis. There is a tiny filling defect in the distal common duct most characteristic of choledocholithiasis. Common bile duct dilated to 11 mm. August Thompson MD Gall Bladder Ultrasound 04/28/17 0000 Signed Impressions: Service Date/Time: Friday, April 28, 2017 07:40 - CONCLUSION: 1. Moderately distended gallbladder containing sludge. Sonographic findings of gallbladder wall thickening, pericholecystic fluid and sonographic Nickerson's sign are consistent with acute cholecystitis. 2. Common bile duct is distended up to 9 mm although a definitive stone or mass is not demonstrated in the visualized portions. Choledocholithiasis or distal obstructing lesion not imaged on this ultrasound cannot be entirely excluded. Cole Cordoba MD PE at Discharge GEN: Well-developed, well-nourished patient. No acute distress. Resting comfortably in bed. CV: Regular rate and rhythm without obvious murmurs LUNGS: Good air movement bilaterally with no accessory muscle use. Minimal bibasilar crackles present but without wheezing. GI: Abdomen soft. Postsurgical bandages over trocar sites noted without any discharge. She does have some mild tenderness to palpation globally. Bowel sounds present. EXT: No edema. No calf tenderness. NEURO/PSYCH: Awake, alert. Appropriate insight and judgment. Normal speech Hospital Course Patient is a 31F with history of COPD who presented with acute nausea, vomiting , abdominal pain with workup consistent with acute cholecystitis complicated by gallstones. The above, consistent with cholecystitis. MRCP and ERCP performed due to dilation of CBD. Underwent laparoscopic cholecystectomy on 05/01. She had a postoperative stay complicated by COPD exacerbation which was treated medically and patient was stable for discharge home on 05/04, POD#3. PCP is Dr[address] Mirna Smith at [facility]. She is to follow up with general sx and PCP in 1-2 weeks. Pt Condition on Discharge: Stable Discharge Disposition: Discharge Home Discharge Instructions DIET: Follow Instructions for: Gastroesophageal Reflux Activities you can perform: Regular-No Restrictions Follow up Referrals: PCP Follow-up - 1 Week with Mirna Smith MD Surgical - 05/07/17 with Edgardo Clark MD Appt set for May 07 at 8:50AM New Medications: Hydroxyzine Pamoate (Vistaril) 25 Mg Cap 25 MG PO TID PRN for ANXIETY, #30 CAP 0 Refills Use 1 tab as needed for anxiety. Do not drink or lift heavy equipment while taking this medication. Tramadol (Tramadol) 50 Mg Tab 50 MG PO Q4H PRN for PAIN, #28 TAB 0 Refills Azithromycin (Azithromycin) 250 Mg Tab 500 MG PO Q24H, #8 TAB Take 2 tabs (500mg) daily. Ketorolac (Ketorolac) 10 Mg Tab 10 MG PO Q6H, #12 TAB Take 1 tab every 6 hrs until gone. Do not take with ibuprofen or other NSAID. Prednisone (Prednisone) 20 Mg Tab 40 MG PO DAILY, #8 TAB Take 2 tabs (40mg) daily until they are gone. Sennosides-Docusate Sodium (Gnp Senna Plus 8.6-50 mg) 8.6 Mg-50 Mg Tab 2 TAB PO BID, #60 TAB Triamcinolone Topical (Triamcinolone Topical) 0.1% Cream 1 APPLIC TOPICAL Q6HR, #1 TUBE Continued Medications: Albuterol 6.7 GM Inh (Proventil Hfa 6.7 GM Inh) 90 Mcg/Act Aer 2 PUFF INH Q6H PRN for SHORTNESS OF BREATH, #1 INHALER 6 Refills Albuterol Neb (Albuterol Neb) 2.5 Mg/3 Ml Neb 2.5 MG NEB Q4HR NEB for Breathing Treatment, #60 NEBULE 0 Refills While awake Fluoxetine (Fluoxetine) 40 Mg Cap 40 CAP PO DAILY, #30 CAP 5 Refills Ibuprofen (Ibuprofen) 600 Mg Tab 600 MG PO Q8H PRN for PAIN, #30 TAB 0 Refills (This prescription has been renewed) Loratadine (Allergy Relief) 10 Mg Tab 10 MG PO BID, TAB Nebulizer (Nebulizer) 1 Mis Mis EA INH DIRECTED for Breathing Treatment, #1 0 Refills (This prescription has been renewed) Promethazine (Phenergan) 25 Mg Tablet 25 MG PO Q6H PRN for NAUSEA OR VOMITING, #20 TAB 0 Refills (This prescription has been renewed) Respiratory Therapy Supplies (Nebulizer Air Tube/Plugs) 1 Mis Mis UNITS .XX, #1 1 Refill (This prescription has been renewed) Tiotropium Inh (Spiriva Handihaler) 18 Mcg Cap 18 MCG INH DAILY for COPD, #30 CAP 0 Refills 1 capsule = 18 mcg Mirna Smith MD May 04, 2017 11:43
== END 2017-05-04 11:05 | disposition home or self-care (01) | DRG 418 ==
LOC: NEPC 23:42 → NEDA 04-28 10:47 → N07B 04-28 16:59
PROVIDERS: ADMIT Family Medicine; ATTEND Family Medicine
PROC: 0FC98ZZ Extirpation of Matter from Common Bile Duct, Via Natural or Artificial Opening Endoscopic (ICD-10-PCS; 2017-04-30)
PROC: BF141ZZ Fluoroscopy of Gallbladder, Bile Ducts and Pancreatic Ducts using Low Osmolar Contrast (ICD-10-PCS; 2017-05-01)
PROC: 0FT44ZZ Resection of Gallbladder, Percutaneous Endoscopic Approach (ICD-10-PCS; principal; 2017-05-01 12:34)
DX: K80.42 Calculus of bile duct with acute cholecystitis without obstruction (principal); J44.0 Chronic obstructive pulmonary disease with (acute) lower respiratory infection; F33.1 Major depressive disorder, recurrent, moderate; E66.01 Morbid (severe) obesity due to excess calories; E11.9 Type 2 diabetes mellitus without complications; D64.9 Anemia, unspecified; J44.1 Chronic obstructive pulmonary disease with (acute) exacerbation; E87.6 Hypokalemia; Z87.440 Personal history of urinary (tract) infections; F17.200 Nicotine dependence, unspecified, uncomplicated; G47.33 Obstructive sleep apnea (adult) (pediatric); L40.9 Psoriasis, unspecified; Z68.36 Body mass index [BMI] 36.0-36.9, adult; J20.9 Acute bronchitis, unspecified; K59.09 Other constipation
CPT/HCPCS: 71045; 74183; 74300; 74330; 76377; 76705; 80053; 81001; 82150; 83690; 84484; 84703; 85025; 87070; 87205; 87804; 88304; 93005; 94150; 94640; 94664; 96361; 96365; 96366; 96367; 96375; 96376; A9579; J0131; J0330; J0696; J1100; J1956; J2250; J2270; J2405; J2550; J2710; J3010; J3480; J7030; J7512; J7613; Q9967